=== PATIENT | female | born 2000 | race Caucasian/White ===

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

== ENCOUNTER 2022-05-26 14:28 | Emergency (ER) | payer MEDICAID, SELFPAY ==
[2022-05-26 14:49] VITALS: BP 138/95; PULSE 107; RESP 17; TEMP 36.9; O2SAT 99; BMI 24.2
--- NOTE | 2022-05-26 14:49 | HMH.EDUTC ---
[facility] [place] Impression: Exposure to COVID-19 virus, Viral syndrome Disposition: Home, Self-Care Condition on Discharge: Good Instructions: DI for COVID-19 (Suspected or Confirmed ), Preventing the Spread of Coronavirus Discharge Instructions Additional Instructions: Drink plenty of fluids. Take tylenol or ibuprofen for pain or fever. Take the medications as directed. Follow up with your regular doctor. GO TO THE ER FOR ANY WORSENING SYMPTOMS Quarantine until you know the results of your covid-19 test. Notify your school or workplace of your results and follow their instructions regarding return to work/school. Prescriptions: Ondansetron [Zofran 4mg ODT] 4 mg PO Q8HP PRN #12 tab PRN Reason: Nausea Transmission Status: Received by [email or web address] Benzonatate [Benzonatate 100mg cap] 100 mg PO TIDP PRN #30 cap PRN Reason: Cough [facility] Referrals: Anthony Meng [Primary Care Provider] - Forms: Work/School Release Time of Disposition: 15:09 Medical Decision Making - Medical Records Medical records reviewed: No: I reviewed the patient's medical records. - Reginald Inquiry Pt receiving controlled substance: No Vital Signs: 05/26/22 14:49 05/26/22 15:14 Temperature 98.5 F 98.5 F Temperature Source Oral Pulse Rate 107 H Pulse Rate [Left] 107 H Respiratory Rate 17 17 Blood Pressure 138/95 H Blood Pressure [Right Arm] 138/95 H Blood Pressure Mean [Right Arm] 109 02 Sat by Pulse Oximetry 99 - Lab Data Lab results reviewed: Yes: I reviewed the patient's lab results. [facility] [place] - General Stated complaint: covid exposure, chills, upset stomach Time Seen by Provider: 05/26/22 14:49 - History of Present Illness Provider Complaint: She states that she has had a had sinus congestion and a cough for the past 2 days. - Related Data Previous Rx's Medication Instructions Recorded Promethazine HCl [Phenergan 25mg 25 mg PO Q6HP PRN #10 tab 01/06/21 tab] Dicyclomine HCl [Bentyl 10mg 10 mg PO Q8HP PRN #30 cap 02/04/21 capsule] Ketorolac Tromethamine [Toradol 10 mg PO Q6H 5 Days #20 tab 02/04/21 10mg tablet] Ondansetron [Zofran 4mg ODT] 4 mg PO Q6HP PRN #30 tab.rapdis 02/04/21 Benzonatate [Benzonatate 100mg 100 mg PO TIDP PRN #30 cap 05/26/22 cap] Ondansetron [Zofran 4mg ODT] 4 mg PO Q8HP PRN #12 tab 05/26/22 Allergies Allergy/AdvReac Type Severity Reaction Status Date / Time No Known Allergies Allergy Verified 05/26/22 14:56 [facility] History - Hepatitis A Screen Attestation statement:: This patient has been screened for Hepatitis A risk factors. I have reviewed the patient's past medical history: Yes Medical History: Reports:: Anxiety Other Surgeries: Yes: No Previous Surgery Amputation: No Fractures: No - Social History Smoking Status: Never smoker Alcohol Intake: never Substance Use Type: denies use Occupational Status: other Housing: house Household Members: family - Psychiatric History Pschychiatric History:: Reports:: Anxiety Denies:: Suicide Attempt Family Hx:: Diabetes, Cancer ROS Obtained: Yes All systems reviewed & no additional complaints - Constitutional Constitutional: Reports as per HPI - Eyes Eyes: Denies blurry vision - ENT Ears, Nose, Mouth, and Throat: Reports as per HPI - Cardiovascular Cardiovascular: Denies chest pain - Respiratory Respiratory: Denies chest congestion, Reports cough Physical Exam - General General appearance: alert, in no apparent distress - Head Head exam: atraumatic, normocephalic, normal inspection - Eye Eye exam: Present: normal appearance, PERRL, EOMI - ENT ENT exam: Present: normal exam, normal oropharynx, mucous membranes moist, TM's normal bilaterally, normal external ear exam - Neck Neck exam: Present: normal inspection, full ROM, trachea midline. Absent: meningismus, lymphadenopa
[2022-05-26 15:14] VITALS: BP 138/95; PULSE 107; RESP 17; TEMP 36.9
== END 2022-05-26 15:16 | disposition home or self-care (01) ==
PROVIDERS: Emergency Provider Nurse Practitioner Family; PCP Family Medicine
DX: B34.9 Viral infection, unspecified (principal); Z20.822 Contact with and (suspected) exposure to COVID-19
CPT/HCPCS: 99212; C9803; G0463; U0003; U0005

== ENCOUNTER 2022-06-24 11:32 | Emergency (ER) | payer MEDICAID, SELFPAY ==
--- NOTE | 2022-06-24 12:14 | EXP.UTC ---
Discharge Plan Disposition Patient Disposition: Home, Self-Care Condition: Good Prescriptions Prescriptions: New ondansetron 4 mg Tablet,Disintegrating 4 mg PO Q8H PRN (Reason: Nausea) Qty: 20 0RF famotidine 20 mg tablet 20 mg PO BID Qty: 60 0RF No Action benzonatate 100 MG capsule 100 mg PO TIDP PRN (Reason: Cough) Qty: 30 0RF ondansetron 4 MG tablet,disintegrating 4 mg PO Q8HP PRN (Reason: Nausea) Qty: 12 0RF promethazine 25 MG tablet 25 mg PO Q6HP PRN (Reason: Nausea And Vomiting) Qty: 10 0RF ketorolac 10 MG tablet 10 mg PO Q6H 5 Days Qty: 20 0RF ondansetron 4 MG tablet,disintegrating 4 mg PO Q6HP PRN (Reason: Nausea) Qty: 30 0RF dicyclomine 10 MG capsule 10 mg PO Q8HP PRN (Reason: abdominal pain) Qty: 30 0RF Referrals Follow up/Referrals: Anthony Meng [Primary Care Provider] - See instructions Activity Restrictions/Add. Instructions Additional Instructions/Restrictions: Drink plenty of fluids. Take tylenol or ibuprofen for pain or fever. Take the medications as directed. Follow up with your regular doctor. GO TO THE ER FOR ANY WORSENING SYMPTOMS Quarantine until you know the results of your covid-19 test. Notify your school or workplace of your results and follow their instructions regarding return to work/school. Clinical Impressions Clinical Impression: Gastroenteritis, Viral syndrome Stand Alone Forms Stand Alone Forms: Work/School Release Instructions Patient Instructions: Viral Gastroenteritis, Coronavirus Disease 2019, Preventing the Spread of Coronavirus Discharge Instructions Discharge ED Provider: Tigre Owen [facility] General Stated complaint: stomach pain Time Seen by Provider: 06/24/22 12:14 History of Present Illness Provider Complaint: She states that for the past 1 days she has had n/v. She has abdominal discomfort in her epigastric area, but no actual pain. She denies diarrhea Related Data Previous Rx's Medication Instructions Recorded promethazine 25 mg tablet 25 mg PO Q6HP PRN Nausea And 01/06/21 Vomiting #10 tabs dicyclomine 10 mg capsule 10 mg PO Q8HP PRN abdominal pain 02/04/21 #30 caps ketorolac 10 mg tablet 10 mg PO Q6H 5 days #20 tabs 02/04/21 ondansetron 4 mg disintegrating 4 mg PO Q6HP PRN Nausea ##30 02/04/21 tablet benzonatate 100 mg capsule 100 mg PO TIDP PRN Cough #30 caps 05/26/22 ondansetron 4 mg disintegrating 4 mg PO Q8HP PRN Nausea #12 tabs 05/26/22 tablet famotidine 20 mg tablet 20 mg PO BID #60 tabs 06/24/22 ondansetron 4 mg disintegrating 4 mg PO Q8H PRN Nausea #20 tabs 06/24/22 tablet Allergies Allergy/AdvReac Type Severity Reaction Status Date / Time No Known Allergies Allergy Verified 06/24/22 12:38 PFSH PFS Social History Smoking Status: Never smoker alcohol intake: never substance use type: denies use current occupational status: other household members: family housing: house number of children: 0 ROS Obtained: Yes All systems reviewed & no additional complaints except as documented Constitutional Constitutional: Denies chills, Denies fever(s) and Reports poor appetite ENT Ears, Nose, Mouth, and Throat: Denies dizziness and Denies sore throat Cardiovascular Cardiovascular: Denies dyspnea Respiratory Respiratory: Denies chest congestion, Denies cough and Denies dyspnea Genitourinary Female Genitourinary: Denies difficulty voiding, Denies dysuria, Denies hematuria, Denies urinary frequency, Denies urinary incontinence, Denies urinary hesitancy and Denies urinary urgency Musculoskeletal Musculoskeletal: Denies arthralgias Integumentary/Breasts Skin/Breast: Denies rash Neurologic Neurologic: Denies dizziness Physical Exam General General appearance: alert and in no apparent distress Head Head exam: atraumatic, normocephalic and normal inspection Eye Eye exam: Present normal appearance,
[2022-06-24 12:36] VITALS: BP 143/82; PULSE 102; RESP 16; TEMP 37.1; O2SAT 99; BMI 21.4
[2022-06-24 12:53] LABS: UTC Strep Screen (Rapid) Negative (Negative)
[2022-06-24 13:10] VITALS: BP 143/82; PULSE 102; RESP 16; TEMP 37.1
== END 2022-06-24 13:11 | disposition home or self-care (01) ==
PROVIDERS: Emergency Provider Nurse Practitioner Family; PCP Family Medicine
DX: R10.13 Epigastric pain (principal); R11.2 Nausea with vomiting, unspecified; R05.9 Cough, unspecified; Z79.899 Other long term (current) drug therapy; Z20.822 Contact with and (suspected) exposure to COVID-19
CPT/HCPCS: 87880; 99213; C9803; G0463; U0003; U0005

== ENCOUNTER 2022-08-29 20:55 | Emergency (ER) | payer MEDICAID, SELFPAY ==
[2022-08-29 20:57] VITALS: BP 122/71; PULSE 91; RESP 18; TEMP 36.8; O2SAT 100; BMI 23.2
--- NOTE | 2022-08-29 21:41 | PC.NURSE ---
Pt provided with warm blanket
[2022-08-29 22:00] VITALS: BP 122/71; PULSE 63; O2SAT 100
--- NOTE | 2022-08-29 22:28 | PC.NURSE ---
Dr. Johnson at
[2022-08-29 22:31] VITALS: BP 124/82; PULSE 61; O2SAT 100
[2022-08-29 22:31] LABS: Microscopic, Urine URINE MICROSCOPIC (MICROSCOPIC)
--- NOTE | 2022-08-29 22:32 | HMH.EDNVD ---
Discharge Plan Disposition Patient Disposition: Home, Self-Care Chief Complaint: Nausea/Vomiting/Diarrhea Prescriptions Prescriptions: No Action benzonatate 100 MG capsule 100 mg PO TIDP PRN (Reason: Cough) Qty: 30 0RF ondansetron 4 MG tablet,disintegrating 4 mg PO Q8HP PRN (Reason: Nausea) Qty: 12 0RF promethazine 25 MG tablet 25 mg PO Q6HP PRN (Reason: Nausea And Vomiting) Qty: 10 0RF ketorolac 10 MG tablet 10 mg PO Q6H 5 Days Qty: 20 0RF ondansetron 4 MG tablet,disintegrating 4 mg PO Q6HP PRN (Reason: Nausea) Qty: 30 0RF dicyclomine 10 MG capsule 10 mg PO Q8HP PRN (Reason: abdominal pain) Qty: 30 0RF ondansetron 4 mg Tablet,Disintegrating 4 mg PO Q8H PRN (Reason: Nausea) Qty: 20 0RF famotidine 20 mg tablet 20 mg PO BID Qty: 60 0RF Referrals Follow up/Referrals: Anthony Meng [Primary Care Provider] - See instructions Clinical Impressions Clinical Impression: Post-operative nausea and vomiting Instructions Patient Instructions: DI for Nausea -- Adult Discharge ED Provider: Gerhard Johnson Nausea/Vomiting/Diarrhea HPI General Chief complaint: Nausea/Vomiting/Diarrhea Stated complaint: has Gallbladder surgery at [facility] now with pain Time Seen by Provider: 08/29/22 22:32 Mode of Arrival: Ambulatory Source of Information: Patient and Medical Record Limitations: No Limitations Description of Symptoms (Recalled from ER Triage Doc. by RN): pt states had gallbladder surgery today in [place]. today about 1pm pt began vomitting and unable to keep anything down and having upper abd pain. History of Present Illness HPI Narrative: had gb surg today and now with vomiting and pain - no fever MD complaint: nausea, vomiting and abdominal pain Onset (ago): hour(s) Associated Abdominal Pain: Yes Location of pain: diffuse Severity: moderate Consistency: intermittent Context: recent surgery/procedure Associated symptoms: denies other symptoms Related Data Previous Rx's Medication Instructions Recorded promethazine 25 mg tablet 25 mg PO Q6HP PRN Nausea And 01/06/21 Vomiting #10 tabs dicyclomine 10 mg capsule 10 mg PO Q8HP PRN abdominal pain 02/04/21 #30 caps ketorolac 10 mg tablet 10 mg PO Q6H 5 days #20 tabs 02/04/21 ondansetron 4 mg disintegrating 4 mg PO Q6HP PRN Nausea ##30 02/04/21 tablet benzonatate 100 mg capsule 100 mg PO TIDP PRN Cough #30 caps 05/26/22 ondansetron 4 mg disintegrating 4 mg PO Q8HP PRN Nausea #12 tabs 05/26/22 tablet famotidine 20 mg tablet 20 mg PO BID #60 tabs 06/24/22 ondansetron 4 mg disintegrating 4 mg PO Q8H PRN Nausea #20 tabs 06/24/22 tablet Allergies Allergy/AdvReac Type Severity Reaction Status Date / Time No Known Allergies Allergy Verified 06/24/22 12:38 PFSH [facility] Social History (Updated 06/24/22 @ 21:07 by Tigre Owen APRN) Smoking Status: Current every day smoker alcohol intake: never substance use type: denies use current occupational status: other Travel in the last 8 weeks: None household members: family housing: house number of children: 0 ROS Obtained: Yes All systems reviewed & no additional complaints except as documented Physical Exam General General appearance: alert Head Head exam: normocephalic Eye Eye exam: Present PERRL and EOMI; Absent scleral icterus ENT ENT exam: Present mucous membranes dry Neck Neck exam: Present trachea midline Respiratory Respiratory exam: Present normal lung sounds bilaterally Cardiovascular Cardiovascular exam: Present regular rate; Absent systolic murmur Abdominal Exam Abdominal exam: Present soft, tenderness and other (surg sites clear ) Abdominal tenderness: Present diffuse and moderate Extremities Exam Extremities exam: Present full ROM Neurological Exam Neurological exam: Present alert, oriented X3 and CN II-XII intact Psychiatric Psychiatric exam: Present normal affect Skin Skin exam: Absent rash Medical Decision Making Medical
[2022-08-29 22:39] LABS: Appearance,Urine CLOUDY (Clear); Bilirubin,Urine Negative (Negative); Blood, Urine Negative (Negative); Color,Urine YELLOW (Yellow); Glucose,Urine (UA) Negative (Negative); Ketones,Urine 3+ (Negative); Leukocyte Esterase,Urine Negative (Negative); Nitrate,Urine Negative (Negative); PH,Urine 6.5 (5.0-8.5); Protein,Urine TRACE (Negative); Specific Gravity, Urine 1.025 (1.005-1.030); Urobilinogen,Urine 0.2 EU/dl (0.2)
[2022-08-29 22:42] LABS: Urine Pregnancy, HCG Qual. Negative (Negative)
[2022-08-29 23:01] VITALS: BP 110/54; PULSE 57; O2SAT 100
[2022-08-29 23:02] LABS: Basophils # 0.1 K/mm3 (0-0.2); Basophils % 0.6 % (0.1-2.0); Eosinophils % 0.1 % (0.1-12.0); Hematocrit 44.7 % (37.0-47.0); Hemoglobin 14.5 g/dL (12.2-16.2); Lymphocytes # 0.4 K/mm3 (0.7-4.5); Lymphocytes % 3.9 % (10-50); Mean Corpuscular HGB Conc 32.4 g/dL (31.8-35.4); Mean Corpuscular Hemoglobin 29.9 pg (27.0-31.2); Mean Corpuscular Volume 92.3 fl (81-99); Mean Platelet Volume 7.4 fl (7.4-10.4); Monocytes # 0.1 K/mm3 (0.1-1.0); Monocytes % 1.3 % (1.7-9.3); Neutrophils # 8.7 K/mm3 (1.8-7.8); Neutrophils % 94.3 % (37.0-80.0); Platelet Count 392 K/mm3 (142-424); Red Blood Count 4.84 M/mm3 (4.20-5.40); Red Cell Distribution Width 12.9 % (11.5-17.5); White Blood Count 9.2 K/mm3 (4.5-13.0)
[2022-08-29 23:05] LABS: MANUAL DIFFERENTIAL MANUAL DIFFERENTIAL (MANUAL DIFF)
[2022-08-29 23:08] LABS: Chloride 99 mmol/L (98-107); Potassium 4.2 mmoL/L (3.5-5.1); Sodium 139 mmol/L (136-145)
[2022-08-29 23:11] LABS: Alanine Aminotransferase 28 U/L (12-78); Albumin Level 4.8 g/dl (3.5-5.0); Albumin/Globulin Ratio 1.5 (1.1-1.8); Alkaline Phosphatase 74 U/L (38-126); Amylase 53 U/L (30-110); Anion Gap 21.2 mEq/L (5-15); Aspartate Amino Transferase 57 U/L (14-36); Bilirubin,Total 0.8 mg/dl (0.2-1.3); Blood Urea Nitrogen 12 mg/dl (7-17); Carbon Dioxide 23 mmol/L (22.0-30.0); Creatinine Clearance Estimated 148 mL/min (50-200); Estimated Glomerular Filt Rate 157 ml/min (>60); GFR (African American) 190 ML/MIN (>60); Globulin 3.2 g/dL (1.3-3.2); Glucose 138 mg/dl (74-100); Lipase 25 U/L (23-300)
[2022-08-29 23:14] LABS: Amorphous Sediment,Urine 2+ /lpf; Bacteria,Urine Trace /lpf; WBC,Urine Occasional #/hpf (0-3)
[2022-08-29 23:31] VITALS: BP 112/67; PULSE 64; O2SAT 100
[2022-08-29 23:38] LABS: Lymphocytes % 6 % (10-50); Neutrophils % 94 % (42-76); Total Cells Counted 100
[2022-08-29 23:39] LABS: Platelet Estimate Normal; RBC Morphology Normal
[2022-08-30 00:36] VITALS: BP 115/75; PULSE 61; RESP 16; TEMP 36.8; O2SAT 100
== END 2022-08-30 00:38 | disposition home or self-care (01) ==
PROVIDERS: Emergency Provider Emergency Medicine; PCP Family Medicine
DX: R10.9 Unspecified abdominal pain (principal); R11.2 Nausea with vomiting, unspecified; R19.7 Diarrhea, unspecified; R05.9 Cough, unspecified; F17.210 Nicotine dependence, cigarettes, uncomplicated; Z79.899 Other long term (current) drug therapy
CPT/HCPCS: 80053; 81001; 81025; 82150; 83690; 85007; 85025; 96361; 96374; 96375; 99284; J2405

== ENCOUNTER 2023-03-04 14:48 | Observation (INO) | payer MEDICAID, SELFPAY ==
[2023-03-04] VITALS (9 sets, daily range): BP systolic 113–137; BP diastolic 64–79; PULSE 60–109; RESP 16–20; TEMP 36.4–36.6; O2SAT 94–100; BMI 24.2; BMI 24.8
[2023-03-04 14:58] LABS: Microscopic, Urine URINE MICROSCOPIC (MICROSCOPIC)
[2023-03-04 15:02] LABS: Appearance,Urine SL CLOUDY (Clear); Blood, Urine 3+ (Negative); Color,Urine YELLOW (Yellow); Glucose,Urine (UA) Negative (Negative); Ketones,Urine 2+ (Negative); Leukocyte Esterase,Urine Negative (Negative); Nitrate,Urine Negative (Negative); Protein,Urine 1+ (Negative); Specific Gravity, Urine >= 1.030 (1.005-1.030); Urobilinogen,Urine 0.2 EU/dl (0.2)
[2023-03-04 15:04] LABS: Bilirubin,Urine 1+ (Negative)
--- NOTE | 2023-03-04 15:13 | PC.NURSE ---
DR LAND AT BEDSIDE
[2023-03-04 15:39] LABS: WBC,Urine Occasional #/hpf (0-3)
--- NOTE | 2023-03-04 15:40 | HMH.EDGENADL ---
Discharge Plan Disposition Patient Disposition: Admitted As Inpatient Chief Complaint: Nausea/Vomiting/Diarrhea Prescriptions Prescriptions: No Action No Known Home Medications Referrals Follow up/Referrals: Anthony Meng MD [Primary Care Provider] - See instructions Clinical Impressions Clinical Impression: Abdominal pain, Vomiting Instructions Patient Instructions: DI for Diarrhea and Traveler's Diarrhea -- Adult, DI for Diarrhea and Traveler's Diarrhea -- Child, DI for Nausea -- Adult, DI for Nausea -- Child Discharge ED Provider: Rudy Crane General Adult HPI General Chief complaint: Nausea/Vomiting/Diarrhea Stated complaint: abd pain, vomiting Time Seen by Provider: 03/04/23 14:50 Mode of Arrival: Ambulatory Limitations: No Limitations Description of Symptoms (Recalled from ER Triage Doc. by RN): PT C/O SEVERE PERIOD CRAMPS CAUSING N/V FOR ABOUT 2 HOURS History of Present Illness HPI narrative: This is a 22-year-old female who is otherwise healthy presenting with abdominal pain and vomiting. Patient states that she started her period today, 03/04 and its associated with cramping, abdominal pain, bleeding. She is saturating about 1 pad per hour. Cramping is so bad it is causing her to vomit. Patient has not had any objective fevers measured, but states that she has been feeling sweaty on and off and as if she is burning up. Abdominal pain is 10 out of 10 at its worst, radiates through to her back, not associated with abnormal vaginal discharge, dysuria, hematuria, frequency, urgency, or any other concerns. Vomiting is nonbloody, nonbilious. Denies constipation or diarrhea, or any other symptoms. Related Data Home Medications Medication Instructions Recorded Confirmed No Known Home Medications 03/04/23 03/04/23 Allergies Allergy/AdvReac Type Severity Reaction Status Date / Time No Known Allergies Allergy Verified 06/24/22 12:38 [facility] Disclaimer: The information contained in this section may have been updated after the patient was seen, as this information can be updated by other users. Social History (Updated 06/24/22 @ 21:07 by Tigre Owen APRN) Smoking Status: Never smoker alcohol intake: never substance use type: denies use current occupational status: other Travel in the last 8 weeks: None household members: family housing: house number of children: 0 ROS Obtained: Yes All systems reviewed & no additional complaints except as documented Physical Exam General General appearance: alert and in distress (Retching) Head Head exam: atraumatic, normocephalic and normal inspection Eye Eye exam: Present normal appearance, PERRL and EOMI ENT ENT exam: Present normal exam, normal oropharynx, mucous membranes moist, TM's normal bilaterally and normal external ear exam Neck Neck exam: Present normal inspection, full ROM and trachea midline; Absent meningismus or lymphadenopathy Chest Chest inspection: Present normal inspection and symmetric chest wall rise; Absent tenderness Respiratory Respiratory exam: Present normal lung sounds bilaterally; Absent respiratory distress Cardiovascular Cardiovascular exam: Present regular rate and normal rhythm; Absent JVD Abdominal Exam Abdominal exam: Present soft, tenderness and normal bowel sounds; Absent distention, guarding, rebound or rigidity Abdominal tenderness: Present epigastrium Extremities Exam Extremities exam: Present normal inspection, full ROM and normal capillary refill; Absent calf tenderness Back Exam Back exam: Present normal inspection; Absent tenderness Neurological Exam Neurological exam: Present alert and oriented X3 Psychiatric Psychiatric exam: Present normal affect and normal mood Skin Skin exam: Present warm, dry, intact and normal color Lymphatic Lymphatic Findings: no adenopathy Medical Decision Making Medical Records Medical records reviewed: Yes I reviewed the patient's medical re
[2023-03-04 15:52] LABS: Urine Pregnancy, HCG Qual. Negative (Negative)
--- NOTE | 2023-03-04 16:24 | PC.NURSE ---
gave pt a warm blanket, no complaints at this time, boyfriend at bs
[2023-03-04 16:30] LABS: Basophils # 0.1 K/mm3 (0-0.2); Basophils % 0.3 % (0.1-2.0); Eosinophils % 0.2 % (0.1-12.0); Hematocrit 46.1 % (37.0-47.0); Hemoglobin 15.1 g/dL (12.2-16.2); Lymphocytes % 5.7 % (10-50); Mean Corpuscular HGB Conc 32.8 g/dL (31.8-35.4); Mean Corpuscular Volume 91.5 fl (81-99); Mean Platelet Volume 7.8 fl (7.4-10.4); Monocytes # 0.7 K/mm3 (0.1-1.0); Monocytes % 3.6 % (1.7-9.3); Neutrophils # 16.5 K/mm3 (1.8-7.8); Neutrophils % 90.2 % (37.0-80.0); Platelet Count 315 K/mm3 (142-424); Red Blood Count 5.04 M/mm3 (4.20-5.40); Red Cell Distribution Width 13.2 % (11.5-17.5); White Blood Count 18.2 K/mm3 (4.5-13.0)
[2023-03-04 16:33] LABS: Chloride 101 mmol/L (98-107); Potassium 4.1 mmoL/L (3.5-5.1); Sodium 138 mmol/L (136-145)
[2023-03-04 16:34] LABS: MANUAL DIFFERENTIAL MANUAL DIFFERENTIAL (MANUAL DIFF)
[2023-03-04 16:35] LABS: Alanine Aminotransferase 32 U/L (12-78); Aspartate Amino Transferase 37 U/L (14-36); Blood Urea Nitrogen 12 mg/dl (7-17); Creatinine Clearance Estimated 129 mL/min (50-200); Estimated Glomerular Filt Rate 127 ml/min (>60); GFR (African American) 154 ML/MIN (>60)
--- NOTE | 2023-03-04 16:35 | CT_ITS ---
PROCEDURE INFORMATION: Exam: CT Abdomen And Pelvis With Contrast Exam date and time: 03/04/2023 4:55 PM Age: 22 years old Clinical indication: Nausea and vomiting; Abdominal pain; Generalized; Additional info: Abd pain, vomiting TECHNIQUE: Imaging protocol: Computed tomography of the abdomen and pelvis with contrast. Radiation optimization: All CT scans at this facility use at least one of these dose optimization techniques: automated exposure control; mA and/or kV adjustment per patient size (includes targeted exams where dose is matched to clinical indication); or iterative reconstruction. Contrast material: ISOVUE; Contrast volume: 75 ml; Contrast route: IV; REPORTING DATA: Count of CT and Cardiac NM exams in prior 12 months: This patient has received 0 known CTs and 0 known cardiac nuclear medicine studies in the 12 months prior to the current study. COMPARISON: CT ABDOMEN PELVIS W CON 02/04/2021 11:20 AM FINDINGS: Lungs: Lung bases are clear. Liver: Normal. No mass. Gallbladder and bile ducts: Gallbladder is contracted but otherwise unremarkable. No evident bile duct dilatation. Pancreas: Normal. No ductal dilation. Spleen: Normal. No splenomegaly. Adrenal glands: Normal. No mass. Kidneys and ureters: Normal. No hydronephrosis. Stomach and bowel: Unremarkable. No obstruction. No mucosal thickening. Appendix: Appendix not visible, but no secondary signs of appendicitis identified. Intraperitoneal space: Small amount of nonspecific fluid dense free fluid noted in the posterior pelvis. 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 Potential abnormal fluid distention of the uterine cavities bilaterally measuring up to 16 mm on the right and 17 mm on left noted. Vasculature: Unremarkable. No abdominal aortic aneurysm. Lymph nodes: Unremarkable. No enlarged lymph nodes. Urinary bladder: Unremarkable as visualized. Reproductive: See Intraperitoneal space finding. Bones/joints: Unremarkable. No acute fracture. Soft tissues: Pelvic viscera otherwise unremarkable. IMPRESSION: 1. Uterine didelphys redemonstrated. Possible abnormal fluid distention of the uterine cavities bilaterally incompletely assessed with this exam. Advise further assessment with ultrasound of the pelvis including endovaginal and transpelvic ultrasound. 2. Small amount of nonspecific pelvic free fluid. 3. Additional nonemergent findings as above.
[2023-03-04 16:36] LABS: Albumin Level 4.7 g/dl (3.5-5.0); Albumin/Globulin Ratio 1.4 (1.1-1.8); Alkaline Phosphatase 80 U/L (38-126); Anion Gap 21.1 mEq/L (5-15); Bilirubin,Total 1.1 mg/dl (0.2-1.3); Calcium 9.6 mg/dl (8.4-10.2); Carbon Dioxide 20 mmol/L (22.0-30.0); Globulin 3.3 g/dL (1.3-3.2); Glucose 140 mg/dl (74-100); Lipase 99 U/L (23-300)
--- NOTE | 2023-03-04 16:41 | PC.NURSE ---
RADIOLOGY NOTIFIED OF CT SCAN
--- NOTE | 2023-03-04 16:43 | PC.NURSE ---
PT UPDATED AT THIS TIME
--- NOTE | 2023-03-04 16:48 | PC.NURSE ---
PT TO CT
--- NOTE | 2023-03-04 16:50 | PC.NURSE ---
pt to xray
--- NOTE | 2023-03-04 17:01 | PC.NURSE ---
PT RETURNED FROM CT, AMBULATED TO BR WITHOUT ASSISTANCE
--- NOTE | 2023-03-04 17:26 | PC.NURSE ---
PT CONTINUES TO REPORT NAUSEA
--- NOTE | 2023-03-04 17:34 | PC.NURSE ---
DR LAND AT BEDSIDE TO REEVALUATE PT
[2023-03-04 17:39] LABS: Lymphocytes % 8 % (10-50); Monocytes % 3 % (2-9); Neutrophils % 89 % (42-76); Platelet Estimate Normal; RBC Morphology Normal; Total Cells Counted 100
[2023-03-04 17:58] LABS: Coronavirus 19, PCR Not Detected (NotDetected); Influenza A, PCR Not Detected (NotDetected); Influenza B, PCR Not Detected (NotDetected)
--- NOTE | 2023-03-04 18:12 | PC.NURSE ---
PT REPORTS PAIN GONE AT THIS TIME
--- NOTE | 2023-03-04 18:19 | PC.NURSE ---
pt is resting in bed, no complaints at this time, boyfriend at bs
--- NOTE | 2023-03-04 18:41 | PC.NURSE ---
DR. LAND SPEAKING WITH DR DE PAZ
--- NOTE | 2023-03-04 18:51 | PC.NURSE ---
covid swab sent to lab
--- NOTE | 2023-03-04 18:55 | PC.NURSE ---
REGISTRATION REPRESENTATIVE NOTIFIED OF ADMISSION
--- NOTE | 2023-03-04 19:47 | PC.NURSE ---
Kelly EPSTEIN was notified that antibodies not given
--- NOTE | 2023-03-04 19:59 | PC.NURSE ---
Pt. arrived to [facility] by wheelchair at this time.
--- NOTE | 2023-03-04 20:05 | EXP.HP ---
History of Present Illness *Admission Date: 03/04/23 *Reason for visit:: abdominal pain, nausea/vomiting *History of present illness: Ms. Mayo is a 22 year old female who presented to the ER with complaints of abdominal pain with intractable nausea and vomiting. Work-up in the ER, CBC demonstrated leukocytosis. Chemistry was unremarkable, except for high anion gap. 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 Patient was treated with IVF bolus, along with zofran and phenergan. Patient also received dilaudid for abdominal pain. Despite antiemetics and pain medication, she continued to have ongoing nausea and abdominal pain, along with inability to keep anything down. ER physician discussed case with Dr. Rosario, who agreed inpatient admission for continued IVF resuscitation and antiemetics. Due to nonspecific free fluid in the pelvis, patient was started on Zosyn 4.5 gm IV q6hr. [facility] Disclaimer: The information contained in this section may have been updated after the patient was seen, as this information can be updated by other users. Medical History Uterus didelphys Social History Smoking Status: Never smoker alcohol intake: never substance use type: denies use current occupational status: other Travel in the last 8 weeks: None household members: family housing: house number of children: 0 Review of Systems Review of Systems Review of systems:: pertinent systems reviewed and negative unless documented below *Gastrointestinal Gastrointestinal: Reports abdominal pain, Reports nausea and Reports vomiting *Genitourinary Genitourinary: Reports dysmenorrhea and Reports menorrhagia Psychiatric Comments: Hx anxiety/depression. Denies thoughts of hurting/killing herself. Meds Home Medications and Allergies Home Medications Medication Instructions Recorded Confirmed Type No Known Home Medications 03/04/23 03/04/23 History New Prescriptions to Start Prescriptions: Allergies Allergy/AdvReac Type Severity Reaction Status Date / Time No Known Allergies Allergy Verified 06/24/22 12:38 Exam Data for Last 24 hours Vital signs and Labs for Last 24 Hours: Temp Pulse Resp BP Pulse Ox 97.9 F 61 16 124/74 100 03/04/23 19:45 03/04/23 19:45 03/04/23 19:45 03/04/23 19:45 03/04/23 18:30 Laboratory Results - last 24 hr 03/04/23 14:53: Urine Color Yellow, Urine Appearance Sl cloudy, Urine pH 6.0, Ur Specific [place] >= 1.030, Urine Protein 1+, Urine Glucose (UA) Negative, Urine Ketones 2+, Urine Blood 3+, Urine Nitrate Negative, Urine Bilirubin 1+ A, Urine Urobilinogen 0.2, Ur Leukocyte Esterase Negative, Urine RBC 5-10, Urine WBC Occasional, Ur Squamous Epith Cells 3-5, Urine Bacteria None 03/04/23 14:53: Urine HCG, Qual Negative 03/04/23 15:35: WBC 18.2 H, RBC 5.04, Hgb 15.1, Hct 46.1, MCV 91.5, MCH 30.0, MCHC 32.8, RDW 13.2, Plt Count 315, MPV 7.8, Neut % (Auto) 90.2 H, Lymph % (Auto) 5.7 L, [place] % (Auto) 3.6, Eos % (Auto) 0.2, Baso % (Auto) 0.3, Neut # (Auto) 16.5 H, Lymph # (Auto) 1.0, [place] # (Auto) 0.7, Eos # (Auto) 0.0, Baso # (Auto) 0.1, Total Counted 100, Neutrophils % (Manual) 89 H, Lymphocytes % (Manual) 8 L, Monocytes % (Manual) 3, Platelet Estimate Normal, RBC Morphology Normal 03/04/23 15:35: Sodium 138, Potassium 4.1, Chloride 101, Carbon Dioxide 20 L, Anion Gap 21.1 H, BUN 12, Creatinine 0.60, Estimated Creat Clear 129, Estimated GFR 127, Est GFR ( Amer) 154, Glucose 140 H, Calcium 9.6, Total Bilirubin 1.1, AST 37 H, ALT 32, Alkaline Phosphatase 80, Total Protein 8.0, Albumin 4.7, Globulin 3.3 H, Albumin/Globulin Ratio 1.4, Lipase 99 03/04/23 17:45: SARS-CoV-2 (PCR) Not detected, Influenza A Untype (PCR) Not detected, Influenza Type B (PCR)
[2023-03-05 04:00] VITALS: BP 117/54; PULSE 77; RESP 18; TEMP 37.1; O2SAT 99; BMI 24.8
--- NOTE | 2023-03-05 05:07 | PC.NURSE ---
Pt has c/o nausea 3x t/o shift and did not seem to get relief until receiving 25mg IV Phenergan. Pt stated 10mg Compazine somewhat helped and 4 mg Zofran did not help at all. Pt friend at bedside, call light within reach.
[2023-03-05 06:14] LABS: Basophils % 0.1 % (0.1-2.0); Eosinophils # 0.1 K/mm3 (0.0-0.4); Eosinophils % 0.6 % (0.1-12.0); Hematocrit 45.7 % (37.0-47.0); Hemoglobin 14.8 g/dL (12.2-16.2); Lymphocytes # 1.1 K/mm3 (0.7-4.5); Lymphocytes % 6.4 % (10-50); Mean Corpuscular HGB Conc 32.3 g/dL (31.8-35.4); Mean Corpuscular Hemoglobin 29.6 pg (27.0-31.2); Mean Corpuscular Volume 91.4 fl (81-99); Mean Platelet Volume 7.2 fl (7.4-10.4); Monocytes # 0.7 K/mm3 (0.1-1.0); Monocytes % 4.3 % (1.7-9.3); Neutrophils # 15.1 K/mm3 (1.8-7.8); Neutrophils % 88.6 % (37.0-80.0); Platelet Count 328 K/mm3 (142-424); Red Cell Distribution Width 13.1 % (11.5-17.5)
[2023-03-05 06:17] LABS: Alanine Aminotransferase 22 U/L (12-78); Albumin Level 4.6 g/dl (3.5-5.0); Albumin/Globulin Ratio 1.4 (1.1-1.8); Alkaline Phosphatase 74 U/L (38-126); Anion Gap 18.6 mEq/L (5-15); Aspartate Amino Transferase 30 U/L (14-36); Bilirubin,Total 1.4 mg/dl (0.2-1.3); Blood Urea Nitrogen 8 mg/dl (7-17); Calcium 9.1 mg/dl (8.4-10.2); Carbon Dioxide 21 mmol/L (22.0-30.0); Chloride 100 mmol/L (98-107); Creatinine Clearance Estimated 132 mL/min (50-200); Estimated Glomerular Filt Rate 127 ml/min (>60); GFR (African American) 154 ML/MIN (>60); Globulin 3.2 g/dL (1.3-3.2); Glucose 134 mg/dl (74-100); Magnesium 1.6 mg/dl (1.6-2.3); Potassium 3.6 mmoL/L (3.5-5.1); Sodium 136 mmol/L (136-145); Total Protein,Serum 7.8 g/dl (6.3-8.2)
[2023-03-05 06:36] LABS: MANUAL DIFFERENTIAL MANUAL DIFFERENTIAL (MANUAL DIFF)
[2023-03-05 07:05] LABS: Lymphocytes % 4 % (10-50); Monocytes % 1 % (2-9); Neutrophils % 95 % (42-76); Platelet Estimate Normal; RBC Morphology Normal; Total Cells Counted 100
[2023-03-05 07:19] VITALS: BP 116/68; PULSE 62; RESP 18; TEMP 36.8; O2SAT 97
--- NOTE | 2023-03-05 08:48 | US_ITS ---
FINAL REPORT CLINICAL HISTORY: pelvic pain, uterine didelphys FINDINGS: PELVIC ULTRASOUND Transvaginal pelvic exam: Uterine didelphys is noted. Both limbs of the uterus show normal size and morphology. The in the medial stripes measure 3 and 4 mm respectively which is normal. The right ovary and left ovary are unremarkable. There is a trace amount of free fluid which is considered physiologic. IMPRESSION: Uterine didelphys, otherwise unremarkable exam. Reviewed, Interpreted and Dictated by Escobar Mark MD Transcribed by Chika Rueda Authenticated and . [facility]
--- NOTE | 2023-03-05 10:39 | EXP.PN ---
Subjective *Date: 03/05/23 *Time: 10:39 Interval history: Date of service March 05, 2023 The patient reports no further emesis and reports improved nausea. She describes a chronic and ongoing history of routine marijuana use. She denies any associated diarrhea or crescendo abdominal pain. Her laboratory studies identify normal electrolytes and creatinine. Her CBC identifies a mild leukocytosis with a stable hemoglobin. Exam Data for Last 24 hours Vital signs and Labs for Last 24 Hours: Temp Pulse Resp BP Pulse Ox 98.2 F 62 18 116/68 97 03/05/23 07:19 03/05/23 07:19 03/05/23 07:19 03/05/23 07:19 03/05/23 07:19 Laboratory Results - last 24 hr 03/04/23 14:53: Urine Color Yellow, Urine Appearance Sl cloudy, Urine pH 6.0, Ur Specific [place] >= 1.030, Urine Protein 1+, Urine Glucose (UA) Negative, Urine Ketones 2+, Urine Blood 3+, Urine Nitrate Negative, Urine Bilirubin 1+ A, Urine Urobilinogen 0.2, Ur Leukocyte Esterase Negative, Urine RBC 5-10, Urine WBC Occasional, Ur Squamous Epith Cells 3-5, Urine Bacteria None 03/04/23 14:53: Urine HCG, Qual Negative 03/04/23 15:35: WBC 18.2 H, RBC 5.04, Hgb 15.1, Hct 46.1, MCV 91.5, MCH 30.0, MCHC 32.8, RDW 13.2, Plt Count 315, MPV 7.8, Neut % (Auto) 90.2 H, Lymph % (Auto) 5.7 L, [place] % (Auto) 3.6, Eos % (Auto) 0.2, Baso % (Auto) 0.3, Neut # (Auto) 16.5 H, Lymph # (Auto) 1.0, [place] # (Auto) 0.7, Eos # (Auto) 0.0, Baso # (Auto) 0.1, Total Counted 100, Neutrophils % (Manual) 89 H, Lymphocytes % (Manual) 8 L, Monocytes % (Manual) 3, Platelet Estimate Normal, RBC Morphology Normal 03/04/23 15:35: Sodium 138, Potassium 4.1, Chloride 101, Carbon Dioxide 20 L, Anion Gap 21.1 H, BUN 12, Creatinine 0.60, Estimated Creat Clear 129, Estimated GFR 127, Est GFR ( Amer) 154, Glucose 140 H, Calcium 9.6, Total Bilirubin 1.1, AST 37 H, ALT 32, Alkaline Phosphatase 80, Total Protein 8.0, Albumin 4.7, Globulin 3.3 H, Albumin/Globulin Ratio 1.4, Lipase 99 03/04/23 17:45: SARS-CoV-2 (PCR) Not detected, Influenza A Untype (PCR) Not detected, Influenza Type B (PCR) Not detected 03/05/23 05:55: WBC 17.0 H, RBC 5.00, Hgb 14.8, Hct 45.7, MCV 91.4, MCH 29.6, MCHC 32.3, RDW 13.1, Plt Count 328, MPV 7.2 L, Neut % (Auto) 88.6 H, Lymph % (Auto) 6.4 L, [place] % (Auto) 4.3, Eos % (Auto) 0.6, Baso % (Auto) 0.1, Neut # (Auto) 15.1 H, Lymph # (Auto) 1.1, [place] # (Auto) 0.7, Eos # (Auto) 0.1, Baso # (Auto) 0.0, Total Counted 100, Neutrophils % (Manual) 95 H, Lymphocytes % (Manual) 4 L, Monocytes % (Manual) 1 L, Platelet Estimate Normal, RBC Morphology Normal 03/05/23 05:55: Sodium 136, Potassium 3.6, Chloride 100, Carbon Dioxide 21 L, Anion Gap 18.6 H, BUN 8 D, Creatinine 0.60, Estimated Creat Clear 132, Estimated GFR 127, Est GFR ( Amer) 154, Glucose 134 H, Calcium 9.1, Magnesium 1.6, Total Bilirubin 1.4 H, AST 30, ALT 22 D, Alkaline Phosphatase 74, Total Protein 7.8, Albumin 4.6, Globulin 3.2, Albumin/Globulin Ratio 1.4 I & O for Last 24 hours: Intake & Output 03/02/23 03/03/23 03/04/23 03/05/23 23:59 23:59 23:59 23:59 Intake Total 240 / 240 Output Total 0 / 0 0 / 0 Balance 0 / 0 240 / 240 Weight 55.934 kg 55.934 kg Constitutional Constitutional: no acute distress and cooperative *Routine HEENT Exam Head: Present normocephalic Eye: Present EOMI and PERRL ENT: Present mucous membranes moist *Routine Respiratory Exam Respiratory: Present CTA bilaterally and normal respiratory effort *Routine Cardiovascular Exam Cardiovascular: Present RRR *Routine Abdominal Exam Abdominal: Present soft and normoactive bowel sounds; Absent tenderness *Routine Extremities Exam Extremities: Present full ROM, pulses intact and normal capillary refill; Absent cyanosis, clubbing or edema *Routine Skin Exam Skin: Present warm; Absent petechiae or rash *Routine Neurological Exam Neurological: Present alert, oriented X3, moving all extremities, hearing grossly intact and normal speech; Absent sensory deficit or motor deficit Rou
--- NOTE | 2023-03-05 13:53 | EXP.GYN.CONS ---
History of Present Illness *Admission Date: 03/04/23 *Reason for visit:: Nausea, vomiting, pelvic pain *History of present illness: Ms. Mayo is a 22 year old female who presented to the ER with complaints of abdominal pain with intractable nausea and vomiting. Work-up in the ER, CBC demonstrated leukocytosis. Chemistry was unremarkable, except for high anion gap. 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 Patient was treated with IVF bolus, along with zofran and phenergan. Patient also received dilaudid for abdominal pain. Despite antiemetics and pain medication, she continued to have ongoing nausea and abdominal pain, along with inability to keep anything down. ER physician discussed case with Dr. Rosario, who agreed inpatient admission for continued IVF resuscitation and antiemetics. Due to nonspecific free fluid in the pelvis, patient was started on Zosyn 4.5 gm IV q6hr. [facility] Disclaimer: The information contained in this section may have been updated after the patient was seen, as this information can be updated by other users. Medical History Uterus didelphys Social History Smoking Status: Never smoker alcohol intake: never substance use type: denies use current occupational status: other Travel in the last 8 weeks: None household members: family housing: house number of children: 0 Review of Systems Review of Systems Review of systems:: pertinent systems reviewed and negative unless documented below Meds Home Medications and Allergies Home Medications Medication Instructions Recorded Confirmed Type No Known Home Medications 03/04/23 03/04/23 History New Prescriptions to Start Prescriptions: Allergies Allergy/AdvReac Type Severity Reaction Status Date / Time No Known Allergies Allergy Verified 06/24/22 12:38 Exam (Inpt) Vital signs and Labs for Last 24 Hours: Temp Pulse Resp BP Pulse Ox 98.2 F 62 18 116/68 97 03/05/23 07:19 03/05/23 07:19 03/05/23 07:19 03/05/23 07:19 03/05/23 07:19 Laboratory Results - last 24 hr 03/04/23 14:53: Urine Color Yellow, Urine Appearance Sl cloudy, Urine pH 6.0, Ur Specific [place] >= 1.030, Urine Protein 1+, Urine Glucose (UA) Negative, Urine Ketones 2+, Urine Blood 3+, Urine Nitrate Negative, Urine Bilirubin 1+ A, Urine Urobilinogen 0.2, Ur Leukocyte Esterase Negative, Urine RBC 5-10, Urine WBC Occasional, Ur Squamous Epith Cells 3-5, Urine Bacteria None 03/04/23 14:53: Urine HCG, Qual Negative 03/04/23 15:35: WBC 18.2 H, RBC 5.04, Hgb 15.1, Hct 46.1, MCV 91.5, MCH 30.0, MCHC 32.8, RDW 13.2, Plt Count 315, MPV 7.8, Neut % (Auto) 90.2 H, Lymph % (Auto) 5.7 L, [place] % (Auto) 3.6, Eos % (Auto) 0.2, Baso % (Auto) 0.3, Neut # (Auto) 16.5 H, Lymph # (Auto) 1.0, [place] # (Auto) 0.7, Eos # (Auto) 0.0, Baso # (Auto) 0.1, Total Counted 100, Neutrophils % (Manual) 89 H, Lymphocytes % (Manual) 8 L, Monocytes % (Manual) 3, Platelet Estimate Normal, RBC Morphology Normal 03/04/23 15:35: Sodium 138, Potassium 4.1, Chloride 101, Carbon Dioxide 20 L, Anion Gap 21.1 H, BUN 12, Creatinine 0.60, Estimated Creat Clear 129, Estimated GFR 127, Est GFR ( Amer) 154, Glucose 140 H, Calcium 9.6, Total Bilirubin 1.1, AST 37 H, ALT 32, Alkaline Phosphatase 80, Total Protein 8.0, Albumin 4.7, Globulin 3.3 H, Albumin/Globulin Ratio 1.4, Lipase 99 03/04/23 17:45: SARS-CoV-2 (PCR) Not detected, Influenza A Untype (PCR) Not detected, Influenza Type B (PCR) Not detected 03/05/23 05:55: WBC 17.0 H, RBC 5.00, Hgb 14.8, Hct 45.7, MCV 91.4, MCH 29.6, MCHC 32.3, RDW 13.1, Plt Count 328, MPV 7.2 L, Neut % (Auto) 88.6 H, Lymph % (Auto) 6.4 L, [place] % (Auto) 4.3, Eos % (Auto) 0.6, Baso % (Auto) 0.1, Neut # (Auto) 15.1 H, Lymph # (Auto) 1.1, [place] # (Aut
--- NOTE | 2023-03-05 14:59 | EXP.DC.SUM ---
General Admission date:: 03/04/23 Discharge date: 03/05/23 HPI HPI HPI: Ms. Mayo is a 22 year old female who presented to the ER with complaints of abdominal pain with intractable nausea and vomiting. Work-up in the ER, CBC demonstrated leukocytosis. Chemistry was unremarkable, except for high anion gap. 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 Patient was treated with IVF bolus, along with zofran and phenergan. Patient also received dilaudid for abdominal pain. Despite antiemetics and pain medication, she continued to have ongoing nausea and abdominal pain, along with inability to keep anything down. ER physician discussed case with Dr. Rosario, who agreed inpatient admission for continued IVF resuscitation and antiemetics. Due to nonspecific free fluid in the pelvis, patient was started on Zosyn 4.5 gm IV q6hr. Hospital Course Hospital Course Hospital Course: The patient was admitted to the medical unit with IV fluid resuscitation and IV antiemetic therapy. Her symptoms resolved and she inquired about discharge home. Gynecology evaluated the patient and recommended an outpatient evaluation with appointment scheduled. The patient was counseled to discontinue routine marijuana use and she voiced understanding. She plans to follow-up with her PCP next week. Exam Data for Last 24 hours Vital signs and Labs for Last 24 Hours: Temp Pulse Resp BP Pulse Ox 98.2 F 62 18 116/68 97 03/05/23 07:19 03/05/23 07:19 03/05/23 07:19 03/05/23 07:19 03/05/23 07:19 Laboratory Results - last 24 hr 03/04/23 14:53: Urine Color Yellow, Urine Appearance Sl cloudy, Urine pH 6.0, Ur Specific [place] >= 1.030, Urine Protein 1+, Urine Glucose (UA) Negative, Urine Ketones 2+, Urine Blood 3+, Urine Nitrate Negative, Urine Bilirubin 1+ A, Urine Urobilinogen 0.2, Ur Leukocyte Esterase Negative, Urine RBC 5-10, Urine WBC Occasional, Ur Squamous Epith Cells 3-5, Urine Bacteria None 03/04/23 14:53: Urine HCG, Qual Negative 03/04/23 15:35: WBC 18.2 H, RBC 5.04, Hgb 15.1, Hct 46.1, MCV 91.5, MCH 30.0, MCHC 32.8, RDW 13.2, Plt Count 315, MPV 7.8, Neut % (Auto) 90.2 H, Lymph % (Auto) 5.7 L, [place] % (Auto) 3.6, Eos % (Auto) 0.2, Baso % (Auto) 0.3, Neut # (Auto) 16.5 H, Lymph # (Auto) 1.0, [place] # (Auto) 0.7, Eos # (Auto) 0.0, Baso # (Auto) 0.1, Total Counted 100, Neutrophils % (Manual) 89 H, Lymphocytes % (Manual) 8 L, Monocytes % (Manual) 3, Platelet Estimate Normal, RBC Morphology Normal 03/04/23 15:35: Sodium 138, Potassium 4.1, Chloride 101, Carbon Dioxide 20 L, Anion Gap 21.1 H, BUN 12, Creatinine 0.60, Estimated Creat Clear 129, Estimated GFR 127, Est GFR ( Amer) 154, Glucose 140 H, Calcium 9.6, Total Bilirubin 1.1, AST 37 H, ALT 32, Alkaline Phosphatase 80, Total Protein 8.0, Albumin 4.7, Globulin 3.3 H, Albumin/Globulin Ratio 1.4, Lipase 99 03/04/23 17:45: SARS-CoV-2 (PCR) Not detected, Influenza A Untype (PCR) Not detected, Influenza Type B (PCR) Not detected 03/05/23 05:55: WBC 17.0 H, RBC 5.00, Hgb 14.8, Hct 45.7, MCV 91.4, MCH 29.6, MCHC 32.3, RDW 13.1, Plt Count 328, MPV 7.2 L, Neut % (Auto) 88.6 H, Lymph % (Auto) 6.4 L, [place] % (Auto) 4.3, Eos % (Auto) 0.6, Baso % (Auto) 0.1, Neut # (Auto) 15.1 H, Lymph # (Auto) 1.1, [place] # (Auto) 0.7, Eos # (Auto) 0.1, Baso # (Auto) 0.0, Total Counted 100, Neutrophils % (Manual) 95 H, Lymphocytes % (Manual) 4 L, Monocytes % (Manual) 1 L, Platelet Estimate Normal, RBC Morphology Normal 03/05/23 05:55: Sodium 136, Potassium 3.6, Chloride 100, Carbon Dioxide 21 L, Anion Gap 18.6 H, BUN 8 D, Creatinine 0.60, Estimated Creat Clear 132, Estimated GFR 127, Est GFR ( Amer) 154, Glucose 134 H, Calcium 9.1, Magnesium 1.6, Total Bilirubin 1.4 H, AST 30, ALT 22 D, Alkaline Phosphatase 74, Total Protein 7.8, Albumin 4.6, Globulin 3.2, Albumin/Globulin Ratio 1.4 I & O for Last 24 hours: Intak
[2023-03-07 00:03] LABS: Neisseria gonorrhoeae, NAA Negative (Negative)
== END 2023-03-05 15:49 | disposition home or self-care (01) ==
LOC: ER 18:58 → 2ND 19:16
PROVIDERS: Admitting Provider Internal Medicine Adolescent Medicine; Emergency Provider Emergency Medicine; PCP Family Medicine; Visit Provider Internal Medicine Adolescent Medicine
DX: R11.10 Vomiting, unspecified (principal); Q51.28 Other and unspecified doubling of uterus; F12.288 Cannabis dependence with other cannabis-induced disorder; R10.84 Generalized abdominal pain; Z20.822 Contact with and (suspected) exposure to COVID-19
CPT/HCPCS: 36415; 74177; 76830; 80053; 81001; 81025; 83690; 83735; 85007; 85025; 87040; 87491; 87591; 99285; C9803; G0378; J2405; J2543; Q9967; U0003; U0005

== ENCOUNTER 2023-04-30 09:19 | Emergency (ER) | payer MEDICAID, SELFPAY ==
[2023-04-30 09:24] VITALS: PULSE 60; RESP 20; TEMP 36.5; O2SAT 97; BMI 24.2
[2023-04-30 09:43] LABS: Chloride 106 mmol/L (98-107); Potassium 3.3 mmoL/L (3.5-5.1); Sodium 141 mmol/L (136-145)
--- NOTE | 2023-04-30 09:43 | HMH.EDGENADL ---
Discharge Plan Disposition Chief Complaint: Abdominal Pain Prescriptions Prescriptions: No Action No Known Home Medications Referrals Follow up/Referrals: Anthony Meng MD [Primary Care Provider] - See instructions Instructions Patient Instructions: DI for Acute Abdominal Pain Discharge ED Provider: Jason Alexis General Adult HPI General Chief complaint: Abdominal Pain Stated complaint: Abd pain vomiting Time Seen by Provider: 04/30/23 10:01 Mode of Arrival: Ambulatory Source of Information: Patient Limitations: No Limitations Description of Symptoms (Recalled from ER Triage Doc. by RN): pt to ed c/o bilateral UQ pain and vomiting x3 days. pt states she attempted to take an odt zofran and vomited it back up. pt states she started her menstral cycle this morning. History of Present Illness HPI narrative: This is a 22-year-old white female who presents emergency room with epigastric pain that is nonradiating for the past 3 days the pain describes simply as pain nonprovoked not palliated. Pain accompanied by nausea and vomiting no diarrhea no melena hematochezia or hematemesis no fevers or chills no dysuria pyuria or hematuria. Related Data Home Medications Medication Instructions Recorded Confirmed No Known Home Medications 03/04/23 03/04/23 Allergies Allergy/AdvReac Type Severity Reaction Status Date / Time No Known Allergies Allergy Verified 06/24/22 12:38 [facility] Disclaimer: The information contained in this section may have been updated after the patient was seen, as this information can be updated by other users. Medical History Uterus didelphys Social History Smoking Status: Current every day smoker alcohol intake: never substance use type: denies use current occupational status: other Travel in the last 8 weeks: None household members: family housing: house number of children: 0 ROS Obtained: Yes All systems reviewed & no additional complaints except as documented Skin no rash or lesions HEENT no runny nose sore throat Pulmonary no cough or shortness of breath Cardiovascular no chest pain pressure heaviness GI see HPI no dysuria pyuria hematuria Musculoskeletal no neck or back pain Endocrine no polydipsia polyuria or polyphasia Psych no SI or HI The rest of the systems were reviewed and found to be negative Physical Exam Narrative Physical exam: Skin: Warm and dry HEENT: Normocephalic atraumatic extract muscles are intact pupils are equal and reactive to light Neck: Supple nontender Lungs: Clear to auscultation Heart: Regular rate and rhythm Abdomen: NABS soft with epigastric tenderness no guarding or rebound Extremities: No clubbing cyanosis or edema Neurologic: No unilateral weakness or numbness Lymphatic: No cervical or inguinal adenopathy Musculoskeletal: No tenderness of the dorsal or lumbar spine Psych: No SI or HI General General appearance: alert Respiratory Respiratory exam: Present normal lung sounds bilaterally Cardiovascular Cardiovascular exam: Present regular rate Neurological Exam Neurological exam: Present alert Medical Decision Making Reginald Inquiry Pt receiving controlled substance: No Vital Signs: 04/30/23 09:24 04/30/23 10:01 04/30/23 10:30 Temperature 97.7 F Temperature Source Oral Pulse Rate 70 63 Pulse Rate [Left Radial] 60 Respiratory Rate 20 20 18 Blood Pressure 134/82 144/77 H Blood Pressure Mean 99 99 02 Sat by Pulse Oximetry 97 100 97 Oxygen Delivery Method Room Air 04/30/23 11:01 Temperature Temperature Source Pulse Rate 71 Pulse Rate [Left Radial] Respiratory Rate Blood Pressure 121/78 Blood Pressure Mean 92 02 Sat by Pulse Oximetry 97 Oxygen Delivery Method Room Air Lab Data Lab Results 04/30/23 09:30: WBC 16.5 H, RBC 5.12, Hgb 14.8, Hct 46.0, MCV 89.7, MCH 2
[2023-04-30 09:44] LABS: Basophils % 0.3 % (0.1-2.0); Eosinophils # 0.1 K/mm3 (0.0-0.4); Eosinophils % 0.8 % (0.1-12.0); Hemoglobin 14.8 g/dL (12.2-16.2); Lymphocytes % 5.9 % (10-50); Mean Corpuscular HGB Conc 32.2 g/dL (31.8-35.4); Mean Corpuscular Hemoglobin 28.9 pg (27.0-31.2); Mean Corpuscular Volume 89.7 fl (81-99); Mean Platelet Volume 7.3 fl (7.4-10.4); Monocytes # 0.8 K/mm3 (0.1-1.0); Monocytes % 4.5 % (1.7-9.3); Neutrophils # 14.6 K/mm3 (1.8-7.8); Neutrophils % 88.5 % (37.0-80.0); Platelet Count 290 K/mm3 (142-424); Red Blood Count 5.12 M/mm3 (4.20-5.40); Red Cell Distribution Width 12.8 % (11.5-17.5); White Blood Count 16.5 K/mm3 (4.5-13.0)
[2023-04-30 09:46] LABS: Alanine Aminotransferase 30 U/L (12-78); Albumin Level 4.7 g/dl (3.5-5.0); Albumin/Globulin Ratio 1.4 (1.1-1.8); Alkaline Phosphatase 85 U/L (38-126); Anion Gap 16.3 mEq/L (5-15); Aspartate Amino Transferase 35 U/L (14-36); Bilirubin,Total 0.6 mg/dl (0.2-1.3); Blood Urea Nitrogen 13 mg/dl (7-17); Calcium 9.3 mg/dl (8.4-10.2); Carbon Dioxide 22 mmol/L (22.0-30.0); Creatinine Clearance Estimated 129 mL/min (50-200); Estimated Glomerular Filt Rate 127 ml/min (>60); GFR (African American) 154 ML/MIN (>60); Globulin 3.4 g/dL (1.3-3.2); Glucose 139 mg/dl (74-100); Total Protein,Serum 8.1 g/dl (6.3-8.2)
[2023-04-30 09:47] LABS: MANUAL DIFFERENTIAL MANUAL DIFFERENTIAL (MANUAL DIFF)
[2023-04-30 09:52] LABS: HCG Qualitative, Serum Negative (Negative)
[2023-04-30 10:01] VITALS: BP 134/82; PULSE 70; RESP 20; O2SAT 100
[2023-04-30 10:02] LABS: Lymphocytes % 6 % (10-50); Monocytes % 4 % (2-9); Neutrophils % 90 % (42-76); Platelet Estimate Normal; RBC Morphology Normal; Total Cells Counted 100
--- NOTE | 2023-04-30 10:07 | XR_ITS ---
PROCEDURE INFORMATION: Exam: XR Complete Acute Abdomen Series Including Chest Exam date and time: 04/30/2023 10:08 AM Age: 22 years old Clinical indication: Abdominal pain; Additional info: Abd pain TECHNIQUE: Imaging protocol: Radiologic exam. Complete acute abdomen series, including 2 or more views of the abdomen and a single view chest. COMPARISON: CT ABDOMEN PELVIS W CON 03/04/2023 4:55 PM FINDINGS: Lungs: Normal. No consolidation. Pleural spaces: Normal. No pleural effusions. No pneumothorax. Heart/Mediastinum: Normal. No cardiomegaly. Gastrointestinal tract: No bowel dilatation. Relative paucity of gas demonstrated. Intraperitoneal space: Normal. No free air. Air-filled tampon in place. Bones/joints: Normal. No acute fracture. Soft tissues: Normal. IMPRESSION: 1. No acute findings. 2. Nonspecific bowel gas pattern.
[2023-04-30 10:25] LABS: Lipase 102 U/L (23-300)
[2023-04-30 10:30] VITALS: BP 144/77; PULSE 63; RESP 18; O2SAT 97
[2023-04-30 11:01] VITALS: BP 121/78; PULSE 71; O2SAT 97
--- NOTE | 2023-04-30 11:10 | PC.NURSE ---
bowen rounded on pts
[2023-04-30 11:28] LABS: Microscopic, Urine URINE MICROSCOPIC (MICROSCOPIC)
--- NOTE | 2023-04-30 11:28 | PC.NURSE ---
notified MD that pt is requesting pain medication. no new medication orders placed.
--- NOTE | 2023-04-30 11:35 | PC.NURSE ---
pt is updated about pain medicine, MD states that narcotics or toradol would help the pt symptoms at this time. New med order placed and given
[2023-04-30 11:36] LABS: Appearance,Urine CLEAR (Clear); Bilirubin,Urine Negative (Negative); Blood, Urine Negative (Negative); Color,Urine YELLOW (Yellow); Glucose,Urine (UA) Negative (Negative); Ketones,Urine 1+ (Negative); Leukocyte Esterase,Urine Negative (Negative); Nitrate,Urine Negative (Negative); Protein,Urine Negative (Negative); Urobilinogen,Urine 0.2 EU/dl (0.2)
[2023-04-30 11:40] LABS: Amphetamine/Metha Screen,Urine Negative ng/ml (<1000)
[2023-04-30 11:41] LABS: Barbiturates Screen,Urine Negative ng/ml (<200)
[2023-04-30 11:42] LABS: Benzodiazepines Screen,Urine Negative ng/ml (<200); Cannabinoid Screen,Urine Positive ng/ml (<50)
[2023-04-30 11:43] LABS: Cocaine Screen,Urine Negative ng/ml (<300)
[2023-04-30 11:44] LABS: Methadone Screen,Urine Negative ng/ml (<300); Opiate Screen,Urine Negative ng/ml (<300)
[2023-04-30 11:45] LABS: Phencyclidine Screen,Urine Negative ng/ml (<25)
[2023-04-30 12:00] LABS: Amorphous Sediment,Urine 2+ /lpf; Bacteria,Urine Trace /lpf; Squamous Epithelial Cell,Urine Occasional #/hpf (0-5)
--- NOTE | 2023-04-30 12:38 | PC.NURSE ---
bowen rounded on pts
--- NOTE | 2023-04-30 12:56 | PC.NURSE ---
pt able to keep 120 ml of water with no issues, pt states she feels able to go home. aware
[2023-04-30 13:05] VITALS: BP 155/70; PULSE 90; RESP 20; TEMP 36.5; O2SAT 98
== END 2023-04-30 13:07 | disposition home or self-care (01) ==
PROVIDERS: Emergency Provider Emergency Medicine; PCP Family Medicine
DX: R10.11 Right upper quadrant pain (principal); R10.12 Left upper quadrant pain; R11.2 Nausea with vomiting, unspecified
CPT/HCPCS: 74021; 80053; 80305; 81001; 83690; 84703; 85007; 85025; 96361; 96374; 96375; 99285

== ENCOUNTER → 2023-05-28 11:00 | Outpatient (CLI) | payer MEDICAID, SELFPAY ==
[2023-05-28 18:18] LABS: Basophils % 0.4 % (0.1-2.0); Eosinophils # 0.1 K/mm3 (0.0-0.4); Eosinophils % 1.5 % (0.1-12.0); Hematocrit 44.9 % (37.0-47.0); Hemoglobin 14.3 g/dL (12.2-16.2); Lymphocytes # 1.2 K/mm3 (0.7-4.5); Lymphocytes % 27.1 % (10-50); Mean Corpuscular HGB Conc 31.9 g/dL (31.8-35.4); Mean Corpuscular Hemoglobin 29.5 pg (27.0-31.2); Mean Corpuscular Volume 92.5 fl (81-99); Mean Platelet Volume 8.5 fl (7.4-10.4); Monocytes # 0.3 K/mm3 (0.1-1.0); Monocytes % 6.5 % (1.7-9.3); Neutrophils # 2.8 K/mm3 (1.8-7.8); Neutrophils % 64.3 % (37.0-80.0); Platelet Count 295 K/mm3 (142-424); Red Blood Count 4.86 M/mm3 (4.20-5.40); Red Cell Distribution Width 12.9 % (11.5-17.5); White Blood Count 4.3 K/mm3 (4.5-13.0)
== END ==
PROVIDERS: PCP Student in an Organized Health Care Education/Training Program; Visit Provider Student in an Organized Health Care Education/Training Program
DX: K62.5 Hemorrhage of anus and rectum (principal)
CPT/HCPCS: 85025

== ENCOUNTER 2024-02-23 22:38 | Emergency (ER) | payer MEDICAID, SELFPAY ==
[2024-02-23 22:49] VITALS: BP 156/87; PULSE 97; RESP 19; TEMP 36.7; O2SAT 98; BMI 27.8
[2024-02-23] MEDS: LACTATED RINGERS 1000ML 500 ML 999 ML IV (23:00)
[2024-02-23 23:05] LABS: Chloride 105 mmol/L (98-107); Potassium 3.5 mmoL/L (3.5-5.1); Sodium 135 mmol/L (136-145)
[2024-02-23 23:06] LABS: Basophils # 0.1 K/mm3 (0-0.2); Basophils % 0.3 % (0.1-2.0); Eosinophils # 0.2 K/mm3 (0.0-0.4); Eosinophils % 1.1 % (0.1-12.0); Hematocrit 46.1 % (37.0-47.0); Hemoglobin 15.5 g/dL (12.2-16.2); Lymphocytes # 1.2 K/mm3 (0.7-4.5); Lymphocytes % 8.7 % (10-50); Mean Corpuscular HGB Conc 33.7 g/dL (31.8-35.4); Mean Corpuscular Volume 92.1 fl (81-99); Mean Platelet Volume 7.6 fl (7.4-10.4); Monocytes # 0.5 K/mm3 (0.1-1.0); Monocytes % 3.4 % (1.7-9.3); Neutrophils # 12.3 K/mm3 (1.8-7.8); Neutrophils % 86.5 % (37.0-80.0); Platelet Count 299 K/mm3 (142-424); Red Blood Count 5.01 M/mm3 (4.20-5.40); Red Cell Distribution Width 13.7 % (11.5-17.5); White Blood Count 14.2 K/mm3 (4.8-10.8)
[2024-02-23 23:07] LABS: MANUAL DIFFERENTIAL MANUAL DIFFERENTIAL (MANUAL DIFF)
[2024-02-23 23:08] LABS: Alanine Aminotransferase 23 U/L (12-78); Albumin Level 4.8 g/dl (3.5-5.0); Albumin/Globulin Ratio 1.3 (1.1-1.8); Alkaline Phosphatase 78 U/L (38-126); Anion Gap 18.5 mEq/L (5-15); Aspartate Amino Transferase 33 U/L (14-36); Bilirubin,Total 2.2 mg/dl (0.2-1.3); Blood Urea Nitrogen 7 mg/dl (7-17); Carbon Dioxide 15 mmol/L (22.0-30.0); Creatinine Clearance Estimated 176 mL/min (50-200); Estimated Glomerular Filt Rate 156 ml/min (>60); GFR (African American) 188 ML/MIN (>60); Globulin 3.7 g/dL (1.3-3.2); Total Protein,Serum 8.5 g/dl (6.3-8.2)
[2024-02-23 23:09] LABS: Calcium 9.9 mg/dl (8.4-10.2); Glucose 90 mg/dl (74-100)
--- NOTE | 2024-02-23 23:18 | ED_ITS ---
Discharge Plan Disposition Patient Disposition: Home, Self-Care Prescriptions Prescriptions: New ondansetron HCl 4 mg tablet 4 mg PO Q8H PRN (Reason: nausea and vomiting) 5 Days Qty: 30 0RF cephalexin 500 mg capsule 500 mg PO QID 5 Days Qty: 20 0RF No Action ondansetron 4 mg tablet,disintegrating 4 mg PO Q8H PRN (Reason: nausea and vomiting) Qty: 30 0RF Referrals Follow up/Referrals: Anthony Meng MD [Primary Care Provider] - See instructions Activity Restrictions/Add. Instructions Additional Instructions/Restrictions: Your lab work showed dehydration and recommend following up with your PLATING TANK OPERATOR. Please return to the ER if you are unable to keep down liquids. Please continue to take your doxylamine pyridoxine and Reglan as needed for nausea vomiting. Add Zofran as needed for persistent nausea vomiting. Consider Maalox, Tums etc. for your abdominal pain. Please take antibiotics as prescribed for treatment of asymptomatic bacteriuria in . Clinical Impressions Clinical Impression: Acute dehydration, Nausea and vomiting during prior to 22 weeks gestation, Asymptomatic bacteriuria during in first trimester Instructions Patient Instructions: DI for Diarrhea and Traveler's Diarrhea -- Adult, DI for Diarrhea and Traveler's Diarrhea -- Child, DI for Nausea -- Adult, DI for Nausea -- Child Discharge ED Provider: Goran Resendiz General Adult HPI General Chief complaint: Nausea/Vomiting/Diarrhea Stated complaint: Vomiting,Abdominal Pin,11 wks Time Seen by Provider: 02/23/24 22:59 Mode of Arrival: Family Vehicle Source of Information: Patient Limitations: No Limitations Description of Symptoms (Recalled from ER Triage Doc. by RN): 23 yo female presents with continuous n/v. G1PO. Has been seen multiple times at [facility] for same issues, told it's because she quit smoking marijuana cold turkey a week ago. Last BM was 02/19. Patient is complaining of abd discomfort associated with vomiting and also with attempts to void or defecate. OB MD is at [facility] [place]. Current med: Reglan and bonjesta. NKA History of Present Illness HPI narrative: 23-year-old female presents with nausea vomiting. She is approximate 11 weeks , first . She reports that she has had no blood in the vomit. Is been ongoing since Saturday. She is seen by PLATING TANK OPERATOR at [facility]. She reports that she is having a burning/gnawing abdominal pain, worse in the epigastric region, worse with vomiting. She was seen at [facility] and was prescribed Reglan, she reports that it has not helped. She is also on doxylamine pyridoxine. She reports that she recently quit smoking marijuana. She reports that she has not really been able to keep any liquids down for the last several days. She did have an episode of diarrhea on Saturday, but has not had a bowel movement since that time, approximate 2 and half days. She reports that she normally has a least 1-2 bowel movements per day. She also reports that she is having some burning with urination. Denies any lower abdominal pain. Reports history of prior cholecystectomy. Related Data Previous Rx's Medication Instructions Recorded ondansetron 4 mg disintegrating 4 mg PO Q8H PRN nausea and 06/05/23 tablet vomiting #30 tabs cephalexin 500 mg capsule 500 mg PO QID 5 days #20 caps 02/24/24 ondansetron HCl 4 mg tablet 4 mg PO Q8H PRN nausea and 02/24/24 vomiting 5 days #30 tabs Allergies Allergy/AdvReac Type Severity Reaction Status Date / Time No Known Allergies Allergy Verified 06/05/23 10:03 [facility] Disclaimer: The information contained in this section may have been updated after the patient was seen, as this information can be updated by other users. Medical History Uterus didelphys Social History Smoking Status: Unknown if ever smoked alcohol intake: never substance use type: denies use current occupational status: other Travel in the last 8 weeks: None household members: family housing: house number of children: 0 ROS Obtained: Yes All systems reviewed & no additional complaints except as documented Physical Exam General General appearance: alert Comment: Uncomfortable appearing Head Head exam: atraumatic and normocephalic Eye Eye exam: Present normal appearance, PERRL and EOMI ENT ENT exam: Present normal oropharynx, mucous membranes dry and normal external ear exam Neck Neck exam: Present normal inspection and full ROM Chest Chest inspection: Present normal inspection and symmetric chest wall rise; Absent tenderness Respiratory Respiratory exam: Present normal lung sounds bilaterally; Absent respiratory distress Cardiovascular Cardiovascular exam: Present regular rate and normal rhythm Abdominal Exam Abdominal exam: Present soft and tenderness (Generalized, worse in the epigastric region); Absent distention or guarding Extremities Exam Extremities exam: Present normal inspection; Absent edema or joint swelling Back Exam Back exam: Present normal inspection and CVA tenderness (L); Absent tenderness Neurological Exam Neurological exam: Present alert and oriented X3; Absent motor sensory deficit Psychiatric Psychiatric exam: Present normal affect and normal mood Skin Skin exam: Present warm, dry and normal color Lymphatic Lymphatic Findings: no adenopathy Medical Decision Making Medical Records Medical records reviewed: Yes I reviewed the patient's medical records. Reginald Inquiry Pt receiving controlled substance: No Reginald was queried for this patient: No Vital Signs: 02/23/24 22:49 02/24/24 01:25 Temperature 98.0 F 98.5 F Temperature Source Oral Oral Pulse Rate 93 H Pulse Rate [Right Brachial] 97 H Respiratory Rate 19 14 Blood Pressure 122/77 Blood Pressure [Right Arm] 156/87 H Blood Pressure Mean [Right Arm] 110 Blood Pressure Source Automatic Cuff Blood Pressure Source [Right Arm] Automatic Cuff Blood Pressure Position Sitting Blood Pressure Position [Right Arm] Sitting 02 Sat by Pulse Oximetry 98 Oxygen Delivery Method Room Air Room Air Lab Data Lab results reviewed: Yes I reviewed the patient's lab results. Lab Results 02/23/24 22:51: WBC 14.2 H, RBC 5.01, Hgb 15.5, Hct 46.1, MCV 92.1, MCH 31.0, MCHC 33.7, RDW 13.7, Plt Count 299, MPV 7.6, Neut % (Auto) 86.5 H, Lymph % (Auto) 8.7 L, [place] % (Auto) 3.4, Eos % (Auto) 1.1, Baso % (Auto) 0.3, Neut # (Auto) 12.3 H, Lymph # (Auto) 1.2, [place] # (Auto) 0.5, Eos # (Auto) 0.2, Baso # (Auto) 0.1, Total Counted 100, Neutrophils % (Manual) 87 H, Lymphocytes % (Manual) 12, Monocytes % (Manual) 1 L, Platelet Estimate Normal, RBC Morphology Normal, Sodium 135 L, Potassium 3.5, Chloride 105, Carbon Dioxide 15 L, Anion Gap 18.5 H, BUN 7, Creatinine 0.50 L, Estimated Creat Clear 176, Estimated GFR 156, Est GFR ( Amer) 188, Glucose 90, Calcium 9.9, Magnesium 1.9, Total Bilirubin 2.2 H, AST 33, ALT 23, Alkaline Phosphatase 78, Total Protein 8.5 H, Albumin 4.8, Globulin 3.7 H, Albumin/Globulin Ratio 1.3, Lipase 153, HCG, Quant [id number] H 02/23/24 23:28: Urine Color Yellow, Urine Appearance Clear, Urine pH 6.0, Ur Specific [place] >= 1.030, Urine Protein 1+, Urine Glucose (UA) Negative, Urine Ketones 3+, Urine Blood Negative, Urine Nitrate Negative, Urine Bilirubin 1+ A, Urine Urobilinogen 1.0, Ur Leukocyte Esterase Negative, Urine RBC None, Urine WBC None, Ur Squamous Epith Cells 3-5, Urine Bacteria Trace 02/23/24 22:51 02/23/24 22:51 Orders (Tests/Meds): ED MEDICATIONS Discontinued Medications Generic Name Dose Route Start Last Admin Trade Name Josueq PRN Reason Stop Dose Admin Acetaminophen 1,000 mg 02/24/24 00:27 02/24/24 00:36 Acetaminophen 1,000mg/100ml Vial IV 02/24/24 00:28 1,000 mg ONCE ONE Administration Lactated Ringer's 500 mls @ 999 mls/hr 02/23/24 22:56 02/23/24 23:00 Lactated Ringer's 1000 Ml Bag IV 02/23/24 23:26 999 mls/hr .Q31M ONE Administration Lactated Ringer's 1,000 mls @ 999 mls/hr 02/23/24 23:30 02/23/24 23:46 Lactated Ringer's 1000 Ml Bag IV 02/24/24 00:30 999 mls/hr .Q1H1M ALEXANDRE Administration Lidocaine HCl 15 ml 02/23/24 23:11 02/23/24 23:44 Lidocaine 2% Viscous Dior 15ml Udc PO 02/23/24 23:12 Not Given ONCE ONE Ondansetron HCl 4 mg 02/23/24 23:12 02/23/24 23:45 Ondansetron 4mg/2ml Vial IV 02/23/24 23:13 4 mg ONCE ONE Administration Promethazine HCl 25 mg 02/24/24 00:27 02/24/24 00:35 Promethazine Hcl 25mg/Ml 1ml Vial IV 02/24/24 00:28 25 mg ONCE ONE Administration Sodium Chloride 25 ml 02/24/24 00:27 02/24/24 00:35 Sodium Chloride 0.9% 25ml Bag IV 02/24/24 00:28 25 ml ONCE ONE Administration ORDERS Category Date Time Status Complete Blood Count Auto Diff Stat Lab 02/23/24 22:51 Completed Comprehensive Metabolic Panel Stat Lab 02/23/24 22:51 Completed HCG,Quantitative Stat Lab 02/23/24 22:51 Completed Lipase Stat Lab 02/23/24 22:51 Completed MAG [Magnesium] Stat Lab 02/23/24 22:51 Completed Urinalysis and Microscopic Stat Lab 02/23/24 23:28 Completed Medical Decision Narrative: 23-year-old female, G1, P0, at 11 weeks, recently discontinued marijuana smoking, presents with 3 days of worsening nausea vomiting and epigastric abdominal pain. History was obtained interactive discussion with patient, family, chart review. On arrival, patient is afebrile, hemodynamically stable, uncomfortable appearing, moving all extremities spontaneously. Full physical exam performed and significant for mild generalized abdominal tenderness, worse in the epigastrium, dry mucous membranes. Differential includes but is not limited to hyperemesis gravidarum, dehydration, gastroenteritis, pancreatitis, erosive esophagitis, electrolyte derangement, UTI, pyelonephritis Patient was given 2 L IV fluid bolus, IV Tylenol 1 g, 4 mg IV Zofran, 25 mg IV Phenergan (after Zofran was ineffective) for symptomatic management and correction of underlying abnormalities. Workup initiated including CBC CMP mag lipase urinalysis. On re-evaluation, patient [remains afebrile, HD stable.] Looks much better. Patient was unable to keep down the viscous lidocaine, reports that it initially made her nausea and vomiting worse. She reports improvement in the nausea vomiting and abdominal pain after the other medication interventions however. Laboratory workup independently interpreted by me and significant for mild leukocytosis with white count of 14, findings consistent with dehydration with mildly elevated anion gap and low bicarb, mild hyperbilirubinemia and mild hyponatremia. Urinalysis most consistent with asymptomatic bacteriuria, also shows ketones. KUB/CT imaging was considered for assessment of patient's abdominal pain, but deemed unnecessary due to history and exam. Given patient history, exam and workup, patient's presentation most likely represents acute dehydration secondary to nausea vomiting in the setting of . Also has asymptomatic bacteriuria. I had extensive and repeated discussion with patient regarding her presentation, symptoms, medication interventions and plan moving forward. She will call her PLATING TANK OPERATOR in the morning for reassessment. She will continue to take her doxylamine pyridoxine and Reglan at home, I will prescribe Zofran for additional symptomatic control. She may require initiation of steroids if her symptoms do not improve. Patient was also prescribed cephalexin for treatment of asymptomatic bacteriuria. Patient was discharged in stable condition, return precautions given. Procedures Risk/Benefits of Procedure(s) Were Explained: Yes Critical Care Critical Care Time Critical Care Time: No
[2024-02-23 23:21] LABS: Magnesium 1.9 mg/dl (1.6-2.3)
[2024-02-23 23:33] LABS: Lymphocytes % 12 % (10-50); Monocytes % 1 % (2-9); Neutrophils % 87 % (42-76); Platelet Estimate Normal; RBC Morphology Normal; Total Cells Counted 100
[2024-02-23 23:35] LABS: Appearance,Urine CLEAR (Clear); Blood, Urine Negative (Negative); Color,Urine YELLOW (Yellow); Glucose,Urine (UA) Negative (Negative); Ketones,Urine 3+ (Negative); Leukocyte Esterase,Urine Negative (Negative); Nitrate,Urine Negative (Negative); Protein,Urine 1+ (Negative); Specific Gravity, Urine >= 1.030 (1.005-1.030)
[2024-02-23 23:37] LABS: Microscopic, Urine URINE MICROSCOPIC (MICROSCOPIC)
[2024-02-23] MEDS: ONDANSETRON 4MG/2ML VIAL 4 MG IV (23:45)
[2024-02-23] MEDS: LACTATED RINGERS 1000ML 1,000 ML 999 ML IV (23:46)
[2024-02-23 23:48] LABS: Lipase 153 U/L (23-300)
[2024-02-23 23:48] LABS: Bilirubin,Urine 1+ (Negative)
[2024-02-23 23:49] LABS: Bacteria,Urine Trace /lpf
[2024-02-23 23:50] LABS: HCG,Quantitative 70148 mIU/ml (0-5.42)
[2024-02-24] MEDS: PROMETHAZINE HCL 25MG/ML 1ML VIAL 25 MG IV (00:35)
[2024-02-24] MEDS: SODIUM CHLORIDE 0.9% 25ML BAG 25 ML IV (00:35)
[2024-02-24] MEDS: ACETAMINOPHEN 1,000MG/100ML VIAL 1000 MG IV (00:36)
[2024-02-24 01:25] VITALS: BP 122/77; PULSE 93; RESP 14; TEMP 36.9; O2SAT 100
== END 2024-02-24 01:32 | disposition home or self-care (01) ==
PROVIDERS: Emergency Medicine; Emergency Provider Emergency Medicine; PCP Family Medicine
DX: O21.9 Vomiting of pregnancy, unspecified (principal); E86.0 Dehydration; E87.1 Hypo-osmolality and hyponatremia; R10.13 Epigastric pain; O99.891 Other specified diseases and conditions complicating pregnancy; Z3A.11 11 weeks gestation of pregnancy
CPT/HCPCS: 80053; 81001; 83690; 83735; 84702; 85007; 85025; 96361; 96374; 96375; 99284; J0131; J2405

== ENCOUNTER 2024-03-08 08:09 | Observation (INO) | payer MEDICAID, SELFPAY ==
[2024-03-08 08:10] VITALS: BP 143/97; PULSE 94; RESP 13; TEMP 36.7; O2SAT 96; BMI 22.1
--- NOTE | 2024-03-08 08:14 | PC.NURSE ---
Dr. Morales at bedside
--- NOTE | 2024-03-08 08:14 | PC.NURSE ---
in room talking with patient at this time.
--- NOTE | 2024-03-08 08:28 | ED_ITS ---
Discharge Plan Disposition Chief Complaint: Abdominal Pain Clinical Impressions Clinical Impression: Hyperemesis gravidarum Discharge ED Provider: North Morales General Adult HPI General Chief complaint: Abdominal Pain Stated complaint: abd pain, vomiting Time Seen by Provider: 03/08/24 08:14 Mode of Arrival: Ambulatory Source of Information: Patient Limitations: No Limitations Description of Symptoms (Recalled from ER Triage Doc. by RN): pt presents to ED with abdominal pain and nausea/vomitting. pt is 14 weeks . pt has had multiple visit to ED for nausea/vomitting. 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 pt reports 20 pound weight loss this pregnany. . pt does have a history of marijuanna use but reports stoping 2 weeks ago. 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 This is her first she is 14 weeks gestational age by dates. She is followed by high risk at [facility]. She has stopped smoking weed several weeks ago no longer is having improvement with showers. She also has Zofran at home without any significant improvement. She has lost 20 pounds she was 135 pounds prior to being is now 115 from historical standpoint. She has some abdominal discomfort intermittent secondary nausea and vomiting. Related Data Previous Rx's Medication Instructions Recorded ondansetron 4 mg disintegrating 4 mg PO Q8H PRN nausea and 06/05/23 tablet vomiting #30 tabs cephalexin 500 mg capsule 500 mg PO QID 5 days #20 caps 02/24/24 ondansetron HCl 4 mg tablet 4 mg PO Q8H PRN nausea and 02/24/24 vomiting 5 days #30 tabs Allergies Allergy/AdvReac Type Severity Reaction Status Date / Time No Known Allergies Allergy Verified 06/05/23 10:03 [facility] Disclaimer: The information contained in this section may have been updated after the patient was seen, as this information can be updated by other users. Medical History Uterus didelphys Social History Smoking Status: Current every day smoker alcohol intake: never substance use type: denies use current occupational status: other Travel in the last 8 weeks: None household members: family housing: house number of children: 0 ROS Obtained: Yes All systems reviewed & no additional complaints except as documented Physical Exam General General appearance: alert and in no apparent distress Respiratory Respiratory exam: Present normal lung sounds bilaterally Cardiovascular Cardiovascular exam: Present regular rate and normal rhythm Abdominal Exam Abdominal exam: Present soft; Absent distention or tenderness Neurological Exam Neurological exam: Present alert and oriented X3 Medical Decision Making Reginald Inquiry Pt receiving controlled substance: No Vital Signs: 03/08/24 08:10 03/08/24 08:51 Temperature 98.1 F Temperature Source Oral Pulse Rate 90 Pulse Rate [Left Radial] 94 H Respiratory Rate 13 Blood Pressure 137/99 H Blood Pressure [Right Arm] 143/97 H Blood Pressure Mean [Right Arm] 112 02 Sat by Pulse Oximetry 96 100 Oxygen Delivery Method Room Air Lab Data Lab results reviewed: Yes I reviewed the patient's lab results. Lab Results 03/08/24 08:20: WBC 10.8, RBC 5.08, Hgb 15.7, Hct 46.4, MCV 91.4, MCH 30.8, MCHC 33.7, RDW 13.7, Plt Count 321, MPV 7.4, Neut % (Auto) 89.3 H, Lymph % (Auto) 7.6 L, [place] % (Auto) 1.8, Eos % (Auto) 0.7, Baso % (Auto) 0.5, Neut # (Auto) 9.7 H, Lymph # (Auto) 0.8, [place] # (Auto) 0.2, Eos # (Auto) 0.1, Baso # (Auto) 0.1, Sodium 136, Potassium 3.2 L, Chloride 99, Carbon Dioxide 26, Anion Gap 14.2, BUN 6 L, Creatinine 0.50 L, Estimated Creat Clear 150, Estimated GFR 156, Est GFR ( Amer) 188, Glucose 137 H, Calcium 9.5, Phosphorus 3.8, Magnesium 1.7, Total Bilirubin 0.8, AST 39 H, ALT 73, Alkaline Phosphatase 70, Total Protein 7.7, Albumin 4.4, Globulin 3.3 H, Albumin/Globulin Ratio 1.3 03/08/24 08:20 03/08/24 08:20 Orders (Tests/Meds): ED MEDICATIONS Discontinued Medications Generic Name Dose Route Start Last Admin Trade Name Priscilla PRN Reason Stop Dose Admin Acetaminophen 1,000 mg 03/08/24 09:00 03/08/24 09:12 Acetaminophen 1,000mg/100ml Vial IV 03/08/24 09:01 1,000 mg ONCE ONE Administration Lactated Ringer's 1,000 mls @ 999 mls/hr 03/08/24 08:30 03/08/24 08:35 Lactated Ringer's 1000 Ml Bag IV 03/08/24 09:30 999 mls/hr .Q1H1M ALEXANDRE Administration Ondansetron HCl 4 mg 03/08/24 08:23 03/08/24 08:35 Ondansetron 4mg/2ml Vial IV 03/08/24 08:24 4 mg ONCE ONE Administration Potassium Chloride 40 meq 03/08/24 08:55 03/08/24 09:06 Potassium Chloride 20meq Tab PO 03/08/24 08:56 Not Given ONCE ONE Potassium Chloride 40 meq 03/08/24 09:05 03/08/24 09:21 Potassium Chloride 20meq/15ml Udc PO 03/08/24 09:06 40 meq ONCE ONE Administration Promethazine HCl 12.5 mg 03/08/24 09:00 03/08/24 09:12 Promethazine Hcl 25mg/Ml 1ml Vial IV 03/08/24 09:01 12.5 mg ONCE ONE Administration Sodium Chloride 25 ml 03/08/24 09:00 03/08/24 09:11 Sodium Chloride 0.9% 25ml Bag IV 03/08/24 09:01 25 ml ONCE ONE Administration ORDERS Category Date Time Status POCUS Point of Care (ER Only) Stat Exams 03/08/24 08:26 Completed CBC w/Auto Diff [Complete Blood Count Auto Diff] Stat Lab 03/08/24 08:20 Results CMP [Comprehensive Metabolic Panel] Stat Lab 03/08/24 08:20 Completed Magnesium Stat Lab 03/08/24 08:20 Completed Phosphorous Stat Lab 03/08/24 08:20 Completed Medical Decision Narrative: 23-year-old female presents today with persistent nausea and vomiting in setting of . I will do a limited bedside ultrasound to evaluate . Additionally we will get basic blood work to check for electrolytes and organ dysfunction. This is consistent with hyperemesis gravidarum she has had significant weight loss will consider admission. IV fluids and Zofran will be administered and will reassess. Reassessment patient still having significant nausea and vomiting and abdominal discomfort we will add Phenergan and IV Tylenol. Limited bedside ultrasound was unremarkable. ED observation order placed as we are pending serial assessments with serial antiemetics to see if patient can tolerate p.o. and whether not we need to admit her. Reassessment patient is feeling better after her Phenergan however given her significant 20 pound weight loss I discussed with her going home with oral antiemetics versus coming in for continued IV fluids and more aggressive management of her nausea. She opted for the latter. I discussed the case with Dr. Mary Melton who is agreeable and admitted the patient for observation and symptomatic medication for her hyperemesis gravidarum and severe weight loss. Procedures Miscellaneous Procedure Procedure Performed: Limited OB ultrasound Indication: Nausea vomiting in Identified structures: [-Uterus -Left adnexa -Right adnexa -Pouch of Kofi] Findings: Definitive IUP heart rate 164 Right adnexa: No free fluid Left adnexa: No free [place] sac: No free fluid Impression: Definitive IUP with normal heart rate consistent with dates Images were saved to permanent archive The study was technically adequate [facility] Transabdominal: [id number] This study was performed by me, and I personally interpreted all images/videos. Based on my clinical judgement, these images were adequate and did not necessitate further imaging. Critical Care Critical Care Time Critical Care Time: No
[2024-03-08] MEDS: LACTATED RINGERS 1000ML 1,000 ML 999 ML IV (08:35)
[2024-03-08] MEDS: ONDANSETRON 4MG/2ML VIAL 4 MG IV (08:35)
[2024-03-08 08:40] LABS: Basophils # 0.1 K/mm3 (0-0.2); Basophils % 0.5 % (0.1-2.0); Eosinophils # 0.1 K/mm3 (0.0-0.4); Eosinophils % 0.7 % (0.1-12.0); Hematocrit 46.4 % (37.0-47.0); Hemoglobin 15.7 g/dL (12.2-16.2); Lymphocytes # 0.8 K/mm3 (0.7-4.5); Lymphocytes % 7.6 % (10-50); Mean Corpuscular HGB Conc 33.7 g/dL (31.8-35.4); Mean Corpuscular Hemoglobin 30.8 pg (27.0-31.2); Mean Corpuscular Volume 91.4 fl (81-99); Mean Platelet Volume 7.4 fl (7.4-10.4); Monocytes # 0.2 K/mm3 (0.1-1.0); Monocytes % 1.8 % (1.7-9.3); Neutrophils # 9.7 K/mm3 (1.8-7.8); Neutrophils % 89.3 % (37.0-80.0); Platelet Count 321 K/mm3 (142-424); Red Blood Count 5.08 M/mm3 (4.20-5.40); Red Cell Distribution Width 13.7 % (11.5-17.5); White Blood Count 10.8 K/mm3 (4.8-10.8)
[2024-03-08 08:44] LABS: MANUAL DIFFERENTIAL MANUAL DIFFERENTIAL (MANUAL DIFF)
[2024-03-08 08:46] LABS: Alanine Aminotransferase 73 U/L (12-78); Albumin Level 4.4 g/dl (3.5-5.0); Albumin/Globulin Ratio 1.3 (1.1-1.8); Alkaline Phosphatase 70 U/L (38-126); Anion Gap 14.2 mEq/L (5-15); Aspartate Amino Transferase 39 U/L (14-36); Bilirubin,Total 0.8 mg/dl (0.2-1.3); Blood Urea Nitrogen 6 mg/dl (7-17); Calcium 9.5 mg/dl (8.4-10.2); Carbon Dioxide 26 mmol/L (22.0-30.0); Chloride 99 mmol/L (98-107); Creatinine Clearance Estimated 150 mL/min (50-200); Estimated Glomerular Filt Rate 156 ml/min (>60); GFR (African American) 188 ML/MIN (>60); Globulin 3.3 g/dL (1.3-3.2); Glucose 137 mg/dl (74-100); Potassium 3.2 mmoL/L (3.5-5.1); Sodium 136 mmol/L (136-145); Total Protein,Serum 7.7 g/dl (6.3-8.2)
[2024-03-08 08:51] VITALS: BP 137/99; PULSE 90; O2SAT 100
[2024-03-08 09:07] LABS: Magnesium 1.7 mg/dl (1.6-2.3); Phosphorous 3.8 mg/dl (2.5-4.5)
[2024-03-08] MEDS: SODIUM CHLORIDE 0.9% 25ML BAG 25 ML IV (09:11)
[2024-03-08] MEDS: PROMETHAZINE HCL 25MG/ML 1ML VIAL 12.5 MG IV (09:12)
[2024-03-08] MEDS: ACETAMINOPHEN 1,000MG/100ML VIAL 1000 MG IV (09:12)
[2024-03-08] MEDS: POTASSIUM CHLORIDE 20MEQ/15ML UDC 40 MEQ PO (09:21)
--- NOTE | 2024-03-08 10:14 | PC.NURSE ---
Dr. Morales s/w Dr. Mary Melton
--- NOTE | 2024-03-08 10:20 | PC.NURSE ---
drawing supervisor notified of admission to Dr. Giles Melton. Bed request order placed.
--- NOTE | 2024-03-08 10:30 | PC.NURSE ---
Admissions notified of admit to room 279 to OB for hyperemesis to . OBS
--- NOTE | 2024-03-08 10:35 | PC.NURSE ---
report called to adryan on OB floor
--- NOTE | 2024-03-08 10:39 | ECG_ITS ---
APPROVED REPORT Exam: Resting ECG HR:77 bpm ECG Measurements Heart Rate 77 AXES MS 138 P 71 QRSd 85 QRS 91 QT 409 T 58 QTc 441 Conclusion SINUS RHYTHM WITH SINUS ARRHYTHMIA BORDERLINE RIGHT AXIS DEVIATION [QRS AXIS > 90] BORDERLINE ECG UNCONFIRMED REPORT Electronically signed by : Tigre Morales, 03/08/2024 15:19:48
[2024-03-08 10:47] VITALS: BP 135/80; PULSE 99; RESP 18; TEMP 36.6; O2SAT 98
--- NOTE | 2024-03-08 10:47 | HMH.PHAINT1 ---
Pharmacy Intervention Comments: MEDICATION RECONCILIATION COMPLETE USING EXTERNAL PHARMACY FILL HISTORY.
[2024-03-08 10:50] VITALS: BP 133/95; PULSE 86; RESP 18; TEMP 36.9; O2SAT 95; BMI 23.6
[2024-03-08 11:27] LABS: Lymphocytes % 11 % (10-50); Monocytes % 2 % (2-9); Neutrophils % 87 % (42-76); Total Cells Counted 100
--- NOTE | 2024-03-08 11:27 | EXP.HP ---
History of Present Illness *Admission Date: 03/08/24 *Reason for visit:: Hyperemesis gravidarum *History of present illness: Audra Mayo is a 23 year old female at 13w3d gestation who presented to the ER with complaints of abdominal pain with intractable nausea and vomiting. She has an JESUSITA: 09/10/24. Her symptoms are consistent with Hyperemesis Gravidarum, that is complicated by a 20lb weight loss. She has a hx of THC used, but states she stopped smoking 2 weeks ago. She receives care in [place] at [facility]. 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 She previously has a history of cannabinol hyperemesis and that with significant nausea and vomiting that was relieved with hot showers prior to her . Reports prior to presenting she tried a hot shower and Zofran at home without any improvement. At home she is also taking Bonjesta is being at the hospital she has received 4 mg of IV Zofran, 1000 mg of Tylenol, 12 and half milligrams of IV Phenergan, 10 mg of IV Reglan, and 25 mg of rectal prochlorperazine. She has also had potassium replacement. Patient states that her largest concern is being sent home too soon before the nausea and vomiting is under control. She states she is unable to tolerate crackers or any alina carbonated beverage. She refuses any p.o. challenges at this time [facility] Disclaimer: The information contained in this section may have been updated after the patient was seen, as this information can be updated by other users. Medical History Uterus didelphys Social History Smoking Status: Current every day smoker alcohol intake: never substance use type: denies use current occupational status: unemployed Travel in the last 8 weeks: None household members: family housing: house number of children: 0 Review of Systems Review of Systems Review of systems (narrative): Review of Systems Constitutional: Denies fever, chills, and sweats Eyes: Denies vision change/ pain Respiratory: Denies cough and shortness of breath Cardiovascular: Denies chest pain and lightheadedness Gastrointestinal: Admits abdominal pain, nausea, vomiting. Genitourinary: Denies dysuria and incontinence Musculoskeletal: Denies shoulder pain and back pain Neurological: Denies change in speech or headaches Meds Home Medications and Allergies Home Medications Medication Instructions Recorded Confirmed Type ondansetron 4 mg disintegrating 4 mg PO Q8H PRN nausea and 06/05/23 03/08/24 Rx tablet vomiting #30 tabs doxylamine 20 mg-pyridoxine 20 mg 1 tab PO Q12H 03/08/24 03/08/24 History tablet,immediate and delayed release (Bonjesta) famotidine 20 mg tablet 20 mg PO BID 03/08/24 03/08/24 History metoclopramide HCl 10 mg tablet 10 mg PO Q6HP PRN Nausea 03/08/24 03/08/24 History potassium chloride 10 mEq 10 meq PO BID 03/08/24 03/08/24 History tablet,extended release New Prescriptions to Start Prescriptions: Allergies Allergy/AdvReac Type Severity Reaction Status Date / Time No Known Allergies Allergy Verified 03/08/24 10:38 Exam Data for Last 24 hours Vital signs and Labs for Last 24 Hours: Temp Pulse Resp BP Pulse Ox O2 Del Method 98.4 F 86 18 133/95 H 95 Room Air 03/08/24 10:50 03/08/24 10:50 03/08/24 10:50 03/08/24 10:50 03/08/24 10:50 03/08/24 10:50 Laboratory Results - last 24 hr 03/08/24 08:20: WBC 10.8, RBC 5.08, Hgb 15.7, Hct 46.4, MCV 91.4, MCH 30.8, MCHC 33.7, RDW 13.7, Plt Count 321, MPV 7.4, Neut % (Auto) 89.3 H, Lymph % (Auto) 7.6 L, [place] % (Auto) 1.8, Eos % (Auto) 0.7, Baso % (Auto) 0.5, Neut # (Auto) 9.7 H, Lymph # (Auto) 0.8, [place] # (Auto) 0.2, Eos # (Auto) 0.1, Baso # (Auto) 0.1, Sodium 136, Potassium 3.2 L, Chloride 99, Carbon Dioxide 26, Anion Gap 14.2, BUN 6 L, Creatinine 0.50 L, Estimated Creat Clear 150, Estimated GFR 156, Est GFR ( Amer) 188, Glucose 137 H, Calcium 9.5, Phosphorus 3.8, Magnesium 1.7, Total Bilirubin 0.8, AST 39 H, ALT 73, Alkaline Phosphatase 70, Total Protein 7.7, Albumin 4.4, Globulin 3.3 H, Albumin/Globulin Ratio 1.3 I & O for Last 24 hours: Intake & Output 03/05/24 03/06/24 03/07/24 03/08/24 23:59 23:59 23:59 23:59 Weight 117 lb 4.575 oz Constitutional Constitutional: no acute distress *Routine HEENT Exam Head: Present normocephalic Eye: Present EOMI and PERRL ENT: Present mucous membranes dry *Routine Neck Exam Neck: Present supple; Absent lymphadenopathy *Routine Respiratory Exam Respiratory: Present CTA bilaterally, normal respiratory effort, able to speak in complete sentences and symmetric chest movement; Absent accessory muscle use, decreased breath sounds, distant breath sounds or diminished air movement *Routine Cardiovascular Exam Cardiovascular: Present RRR, Normal S1 and Normal S2; Absent murmur or gallop *Routine Abdominal Exam Abdominal: Present soft and tenderness (mild generalized abdominal tenderness); Absent distended, rebound, guarding or firm *Routine Rectal Exam Rectal:: deferred *Routine Genitalia Exam Genitalia:: deferred *Routine Extremities Exam Extremities: Present full ROM; Absent cyanosis, clubbing or edema *Routine Skin Exam Skin: Present intact, pallor and warm; Absent rash *Routine Neurological Exam Neurological: Present alert, oriented X3 and normal speech; Absent facial asymmetry Assessment and Plan *Assessment and plan (1) Cannabinoid hyperemesis syndrome: Status: Acute Category: Medical Code(s): R11.2 - Nausea with vomiting, unspecified; F12.90 - Cannabis use, unspecified, uncomplicated (2) Uterus didelphys: Status: Acute Category: Medical Code(s): Q51.28 - Other and unspecified doubling of uterus (3) Abdominal pain: Status: Resolved Qualifiers: Abdominal location: generalized Qualified Code(s): R10.84 - Generalized abdominal pain Category: Medical Code(s): R10.9 - Unspecified abdominal pain (4) Nausea & vomiting: Status: Resolved Qualifiers: Vomiting Intractability: unspecified Vomiting type: unspecified Qualified Code(s): R11.2 - Nausea with vomiting, unspecified Category: Medical Code(s): R11.2 - Nausea with vomiting, unspecified (5) Hyperemesis gravidarum: Status: Acute Category: Medical Code(s): O21.0 - Mild hyperemesis gravidarum Plan Follow with [facility] for care Continue LR 125 MLS per hour Reglan 10 mg IV every 8 as needed nausea vomiting ordered Zofran 4 mg IV every 6 hours ordered Prochlorperazine 25 mg MN every 12 as needed nausea vomiting Promethazine 12-1/2 mg IV every 8 as needed nausea vomiting EKG ordered to check for QT prolongation Normal white count, normal hemoglobin. No other CBC abnormalities noted Hypokalemia noted, received replacement in the ED Hypoglycemia noted if the patient is truly fasting. This may evaluate further workup from her primary OB Slightly elevated LFTs since previously checked. We will run a hepatitis screen on the patient, labs pending Patient will be obs overnight until we are able to get her nausea and vomiting under control
[2024-03-08 11:34] LABS: Platelet Estimate Normal; RBC Morphology Normal
--- NOTE | 2024-03-08 11:39 | PC.NURSE ---
Dr. Melton in room rounding
[2024-03-08] MEDS: LACTATED RINGERS 1000ML 1,000 ML 125 ML IV ×2 (11:51→20:04)
[2024-03-08] MEDS: METOCLOPRAMIDE HCL 10MG/2ML VIAL 10 MG IVP ×2 (11:51→20:04)
[2024-03-08] MEDS: PROCHLORPERAZINE 25MG SUPP 25 MG RC (11:56)
[2024-03-08 16:15] VITALS: BP 122/88; PULSE 78; RESP 17; TEMP 36.7; O2SAT 99
--- NOTE | 2024-03-08 16:15 | PC.NURSE ---
Reassessment completed at this time. Patient's nausea has improved since sediment remediation consultant per patient. Lungs cta and bowel sounds hypoactive. Iv infusing without difficulty. No edema noted and pulses 2+. Patient has had adequate output. No bowel movement my shift. Cap refil <3. S/O at bedside. No current needs voiced while RN in room. Call light within reach.
--- NOTE | 2024-03-08 16:42 | PC.NURSE ---
Dr Melton in room at this time.
[2024-03-08 18:53] LABS: Microscopic, Urine URINE MICROSCOPIC (MICROSCOPIC)
[2024-03-08 18:57] LABS: Appearance,Urine CLEAR (Clear); Bilirubin,Urine Negative (Negative); Blood, Urine Negative (Negative); Color,Urine YELLOW (Yellow); Glucose,Urine (UA) Negative (Negative); Ketones,Urine 3+ (Negative); Leukocyte Esterase,Urine Negative (Negative); Nitrate,Urine Negative (Negative); PH,Urine 7.5 (5.0-8.5); Protein,Urine Negative (Negative); Urobilinogen,Urine 0.2 EU/dl (0.2)
[2024-03-08 19:09] LABS: Benzodiazepines Screen,Urine Negative ng/ml (<200)
[2024-03-08 19:10] LABS: Amphetamine/Metha Screen,Urine Negative ng/ml (<1000)
[2024-03-08 19:11] LABS: Barbiturates Screen,Urine Negative ng/ml (<200); Cannabinoid Screen,Urine Positive ng/ml (<50)
[2024-03-08 19:12] LABS: Cocaine Screen,Urine Negative ng/ml (<300); Methadone Screen,Urine Negative ng/ml (<300)
[2024-03-08 19:13] LABS: Opiate Screen,Urine Negative ng/ml (<300)
[2024-03-08 19:14] LABS: Phencyclidine Screen,Urine Negative ng/ml (<25)
[2024-03-08 19:15] LABS: Squamous Epithelial Cell,Urine Occasional #/hpf (0-5); WBC,Urine Occasional #/hpf (0-3)
[2024-03-08 19:16] LABS: Amorphous Sediment,Urine Trace /lpf; Bacteria,Urine Trace /lpf
[2024-03-08 20:05] VITALS: BP 134/84; PULSE 87; RESP 18; TEMP 36.6; O2SAT 97
[2024-03-09] MEDS: LACTATED RINGERS 1000ML 1,000 ML 125 ML IV (03:56)
[2024-03-09 04:00] VITALS: BP 98/66; PULSE 74; RESP 17; TEMP 36.6; O2SAT 100
[2024-03-09 07:40] VITALS: BP 134/93; PULSE 94; RESP 18; TEMP 36.8; O2SAT 99
--- NOTE | 2024-03-09 08:21 | PC.NURSE ---
Auscultated heart tones with doppler. FHR 154.
[2024-03-09] MEDS: ONDANSETRON 4MG ODT 4 MG SL ×2 (09:03→15:07)
[2024-03-09] MEDS: MVI, ADULT NO.1 WITH VIT K 10 ML, THIAMINE HCL 100 MG, MAGNESIUM SULFATE 2 GM in LACTAT... 125 ML IV (09:03)
[2024-03-09 15:15] VITALS: BP 128/94; PULSE 72; RESP 18; TEMP 36.5; O2SAT 99
--- NOTE | 2024-03-09 17:31 | EXP.DC.SUM ---
General Admission date:: 03/08/24 Discharge date: 03/09/24 HPI HPI HPI: Audra Mayo is a 23 year old female at 13w3d gestation who presented to the ER with complaints of abdominal pain with intractable nausea and vomiting. She has an JESUSITA: 09/10/24. Her symptoms are consistent with Hyperemesis Gravidarum, that is complicated by a 20lb weight loss. She has a hx of THC used, but states she stopped smoking 2 weeks ago. She receives care in [place] at [facility]. 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 She previously has a history of cannabinol hyperemesis and that with significant nausea and vomiting that was relieved with hot showers prior to her . Reports prior to presenting she tried a hot shower and Zofran at home without any improvement. At home she is also taking Bonjesta is being at the hospital she has received 4 mg of IV Zofran, 1000 mg of Tylenol, 12 and half milligrams of IV Phenergan, 10 mg of IV Reglan, and 25 mg of rectal prochlorperazine. She has also had potassium replacement. Patient states that her largest concern is being sent home too soon before the nausea and vomiting is under control. She states she is unable to tolerate crackers or any alina carbonated beverage. She refuses any p.o. challenges at this time Hospital Course Hospital Course Hospital Course: She has done well throughout her hospitalization. Today we increased her oral intake to regular diet. She has been tolerating this well. She has not had any nausea or vomiting since the night before last. We have added regularly scheduled Zofran. 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 Exam Data for Last 24 hours Vital signs and Labs for Last 24 Hours: Temp Pulse Resp BP Pulse Ox O2 Del Method 97.7 F 72 18 128/94 H 99 Room Air 03/09/24 15:15 03/09/24 15:15 03/09/24 15:15 03/09/24 15:15 03/09/24 15:15 03/09/24 15:15 Laboratory Results - last 24 hr 03/08/24 18:50: Urine Color Yellow, Urine Appearance Clear, Urine pH 7.5, Ur Specific [place] 1.020, Urine Protein Negative, Urine Glucose (UA) Negative, Urine Ketones 3+, Urine Blood Negative, Urine Nitrate Negative, Urine Bilirubin Negative, Urine Urobilinogen 0.2, Ur Leukocyte Esterase Negative, Urine RBC None, Urine WBC Occasional, Ur Squamous Epith Cells Occasional, Amorphous Sediment Trace, Urine Bacteria Trace, Urine Opiates Screen Negative, Urine Methadone Screen Negative, Ur Barbituates Screen Negative, Ur Phencyclidine Scrn Negative, Ur Amphetamines Screen Negative, U Benzodiazepines Scrn Negative, Urine Cocaine Screen Negative, U Marijuana (THC) Screen Positive H I & O for Last 24 hours: Intake & Output 03/07/24 03/08/24 03/09/24 03/10/24 11:59 11:59 11:59 11:59 Output Total 200 / 500 600 / 600 Balance -200 / -500 -600 / -600 Weight 117 lb 4.575 oz Constitutional Constitutional: no acute distress *Routine HEENT Exam Head: Present normocephalic *Routine Neck Exam Neck: Present supple Results Data Completed and Pending Labs on day of discharge: Labs from last 24 hours 03/08/24 18:50 Urine Color Yellow Urine Appearance Clear Urine pH 7.5 Ur Specific [place] 1.020 Urine Protein Negative Urine Glucose (UA) Negative Urine Ketones 3+ Urine Blood Negative Urine Nitrate Negative Urine Bilirubin Negative Urine Urobilinogen 0.2 Ur Leukocyte Esterase Negative Urine RBC None Urine WBC Occasional Ur Squamous Epith Cells Occasional Amorphous Sediment Trace Urine Bacteria Trace Urine Opiates Screen Negative Urine Methadone Screen Negative Ur Barbituates Screen Negative Ur Phencyclidine Scrn Negative Ur Amphetamines Screen Negative U Benzodiazepines Scrn Negative Urine Cocaine Screen Negative U Marijuana (THC) Screen Positive H DS: Diagnosis Discharge Diagnosis (1) Cannabinoid hyperemesis syndrome: Status: Acute Code(s): R11.2 - Nausea with vomiting, unspecified; F12.90 - Cannabis use, unspecified, uncomplicated (2) Uterus didelphys: Status: Acute Code(s): Q51.28 - Other and unspecified doubling of uterus (3) Abdominal pain: Status: Resolved Code(s): R10.9 - Unspecified abdominal pain Qualifiers: Abdominal location: generalized Qualified Code(s): R10.84 - Generalized abdominal pain (4) Nausea & vomiting: Status: Resolved Code(s): R11.2 - Nausea with vomiting, unspecified Qualifiers: Vomiting Intractability: unspecified Vomiting type: unspecified Qualified Code(s): R11.2 - Nausea with vomiting, unspecified (5) Hyperemesis gravidarum: Status: Acute Code(s): O21.0 - Mild hyperemesis gravidarum Meds Home Medications and Allergies Home Medications Medication Instructions Recorded Confirmed Type ondansetron 4 mg disintegrating 4 mg PO Q8H PRN nausea and 06/05/23 03/08/24 Rx tablet vomiting #30 tabs doxylamine 20 mg-pyridoxine 20 mg 1 tab PO Q12H 03/08/24 03/08/24 History tablet,immediate and delayed release (Bonjesta) famotidine 20 mg tablet 20 mg PO BID 03/08/24 03/08/24 History metoclopramide HCl 10 mg tablet 10 mg PO Q6HP PRN Nausea 03/08/24 03/08/24 History potassium chloride 10 mEq 10 meq PO BID 03/08/24 03/08/24 History tablet,extended release New Prescriptions to Start Prescriptions: Allergies Allergy/AdvReac Type Severity Reaction Status Date / Time No Known Allergies Allergy Verified 03/08/24 10:38 Discharge Plan Disposition Patient Disposition: Home, Self-Care Condition: Fair Follow up Plan Prescriptions/Medication Reconciliation: Continued ondansetron 4 mg tablet,disintegrating 4 mg PO Q8H PRN (Reason: nausea and vomiting) Qty: 30 0RF famotidine 20 mg tablet 20 mg PO BID Patient Comments: TAKE 1 TABLET BY MOUTH TWICE DAILY metoclopramide HCl 10 mg tablet 10 mg PO Q6HP PRN (Reason: Nausea) Patient Comments: TAKE 1 TABLET BY MOUTH EVERY 6 HOURS NEEDED potassium chloride 10 mEq tablet extended release 10 meq PO BID Bonjesta 20-20 mg tablet,IR,delayed rel,biphasic 1 tab PO Q12H Problem Reconciliation Problems Reviewed?: Yes Patient Discharge Instructions ACTIVITY: Continue current activity DIET: continue same diet Providers Primary Care Provider: Provider,Referral Admit Provider: Mary Melton Attending Provider: Mary Melton
[2024-03-10 06:07] LABS: HBsAg Screen Negative (Negative); HCV Ab Non Reactive (Non Reactive); Hep A Ab, IGM Negative (Negative); Hep B Core Ab, IgM Negative (Negative)
== END 2024-03-09 18:04 | disposition home or self-care (01) ==
LOC: ER 08:55 → OB 10:31
PROVIDERS: Admitting Provider Obstetrics & Gynecology; Emergency Provider Student in an Organized Health Care Education/Training Program; Visit Provider Obstetrics & Gynecology
DX: O21.0 Mild hyperemesis gravidarum (principal); Z3A.14 14 weeks gestation of pregnancy; R11.2 Nausea with vomiting, unspecified; F12.90 Cannabis use, unspecified, uncomplicated; O99.321 Drug use complicating pregnancy, first trimester; O26.891 Other specified pregnancy related conditions, first trimester; R10.9 Unspecified abdominal pain
CPT/HCPCS: 80053; 80074; 80307; 81001; 83735; 84100; 85007; 85025; 93005; G0378; G0463; J0131; J2405

== ENCOUNTER 2024-03-21 00:51 | Inpatient (IN) | payer MEDICAID, SELFPAY ==
[2024-03-21] VITALS (15 sets, daily range): BP systolic 120–145; BP diastolic 71–96; PULSE 79–112; RESP 15–19; TEMP 36.6–36.9; O2SAT 96–100; BMI 19.3
--- NOTE | 2024-03-21 01:17 | PC.NURSE ---
Heart Tones of 127
[2024-03-21 01:38] LABS: Basophils % 0.2 % (0.1-2.0); Eosinophils % 0.3 % (0.1-12.0); Hematocrit 45.1 % (37.0-47.0); Lymphocytes # 0.9 K/mm3 (0.7-4.5); Lymphocytes % 7.3 % (10-50); Mean Corpuscular HGB Conc 33.3 g/dL (31.8-35.4); Mean Corpuscular Hemoglobin 31.1 pg (27.0-31.2); Mean Corpuscular Volume 93.2 fl (81-99); Mean Platelet Volume 7.3 fl (7.4-10.4); Monocytes # 0.2 K/mm3 (0.1-1.0); Monocytes % 1.7 % (1.7-9.3); Neutrophils # 10.8 K/mm3 (1.8-7.8); Neutrophils % 90.6 % (37.0-80.0); Platelet Count 298 K/mm3 (142-424); Red Blood Count 4.83 M/mm3 (4.20-5.40); Red Cell Distribution Width 13.8 % (11.5-17.5); White Blood Count 11.9 K/mm3 (4.8-10.8)
--- NOTE | 2024-03-21 01:39 | ED_ITS ---
Discharge Plan Disposition Patient Disposition: Home, Self-Care Prescriptions Prescriptions: New promethazine 25 mg tablet 25 mg PO TID PRN (Reason: nausea and vomiting) Qty: 20 0RF Rx Instructions: Do not combine with metoclopramide. No Action famotidine 20 mg tablet 20 mg PO BID Patient Comments: TAKE 1 TABLET BY MOUTH TWICE DAILY potassium chloride 10 mEq tablet extended release 10 meq PO BID Bonjesta 20-20 mg tablet,IR,delayed rel,biphasic 1 tab PO Q12H ondansetron 4 mg tablet,disintegrating 4 mg PO Q8H PRN (Reason: nausea and vomiting) Qty: 30 0RF metoclopramide HCl 10 mg tablet 10 mg PO Q6HP PRN (Reason: Nausea) Qty: 60 1RF Referrals Follow up/Referrals: Anthony Meng MD [Primary Care Provider] - See instructions Clinical Impressions Clinical Impression: Hyperemesis gravidarum, Nausea and vomiting during prior to 22 weeks gestation Stand Alone Forms Stand Alone Forms: Transfer Record - ED Discharge ED Provider: Emmanuel Ritter General Adult HPI General Chief complaint: Nausea/Vomiting/Diarrhea Stated complaint: severe abd pain,vomitting,15 wks antepartum Time Seen by Provider: 03/21/24 01:01 Mode of Arrival: Family Vehicle Source of Information: Patient Limitations: No Limitations Description of Symptoms (Recalled from ER Triage Doc. by RN): 23 yo female presents to ED for continued n/v and onset of abd discomfort. States she is 15 weeks preg and been dealing with hyperemesis gravidium since the onset of the preg. Rates pain 9/10. denies vaginal bleeding/discharge History of Present Illness HPI narrative: Patient is a 23-year-old female G1, P0 EGA 15 weeks who presents emergency department for evaluation of vomiting. 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 Patient has had vomiting since 7 PM today that is worse than normal. She has had vomiting throughout her and has been intermittently responsive to metoclopramide, today it is refractory to Zofran. Patient has generalized abdominal pain, has had previous cholecystectomy. Patient has history of uterine dialysis, previous cannabinoid hyperemesis not currently smoking marijuana. She has had a 20 pound weight loss throughout the course. She is followed by Dr. Neal with [facility] with [employer]. Per chart review patient was admitted on 03/05 with similar symptoms and was subsequently transitioned to oral antiemetics and discharged home. Related Data Home Medications Medication Instructions Recorded Confirmed doxylamine 20 mg-pyridoxine 20 mg 1 tab PO Q12H 03/08/24 03/08/24 tablet,immediate and delayed release (Bonjesta) famotidine 20 mg tablet 20 mg PO BID 03/08/24 03/08/24 potassium chloride 10 mEq 10 meq PO BID 03/08/24 03/08/24 tablet,extended release Previous Rx's Medication Instructions Recorded metoclopramide HCl 10 mg tablet 10 mg PO Q6HP PRN Nausea #60 tabs 03/09/24 ondansetron 4 mg disintegrating 4 mg PO Q8H PRN nausea and 03/09/24 tablet vomiting #30 tabs promethazine 25 mg tablet 25 mg PO TID PRN nausea and 03/21/24 vomiting #20 tabs Allergies Allergy/AdvReac Type Severity Reaction Status Date / Time No Known Allergies Allergy Verified 03/08/24 10:[address] [facility] Disclaimer: The information contained in this section may have been updated after the patient was seen, as this information can be updated by other users. Medical History Uterus didelphys Social History Smoking Status: Unknown if ever smoked alcohol intake: never substance use type: denies use current occupational status: unemployed Travel in the last 8 weeks: None household members: family housing: house number of children: 0 ROS Obtained: Yes Systems reviewed as appropriate & no additional complaints except as documented Physical Exam General General appearance: alert and in no apparent distress Head Head exam: atraumatic and normocephalic Eye Eye exam: Present PERRL ENT ENT exam: Present mucous membranes moist Neck Neck exam: Present normal inspection Chest Chest inspection: Present normal inspection and symmetric chest wall rise Respiratory Respiratory exam: Present normal lung sounds bilaterally; Absent respiratory distress Cardiovascular Cardiovascular exam: Present regular rate and normal rhythm Abdominal Exam Abdominal exam: Present soft and tenderness (Generalized, mild); Absent guarding or rebound Extremities Exam Extremities exam: Present normal inspection Neurological Exam Neurological exam: Present alert Psychiatric Psychiatric exam: Present normal affect Skin Skin exam: Present warm and dry Medical Decision Making Reginald Inquiry Pt receiving controlled substance: No Vital Signs: 03/21/24 01:20 03/21/24 01:27 03/21/24 02:00 Temperature 98.0 F Temperature Source Oral Pulse Rate 112 H 100 H Pulse Rate [Right Brachial] 94 H Respiratory Rate 19 16 Blood Pressure 137/96 H 139/78 Blood Pressure [Right Arm] 120/83 Blood Pressure Mean 94 Blood Pressure Mean [Right Arm] 95 Blood Pressure Source Blood Pressure Source [Right Arm] Automatic Cuff Blood Pressure Position Supine Blood Pressure Position [Right Arm] Sitting 02 Sat by Pulse Oximetry 96 100 98 Oxygen Delivery Method Room Air Room Air Room Air 03/21/24 02:30 03/21/24 03:00 03/21/24 03:30 Temperature Temperature Source Pulse Rate 100 H 98 H 92 H Pulse Rate [Right Brachial] Respiratory Rate Blood Pressure 137/96 H 145/81 H 134/78 Blood Pressure [Right Arm] Blood Pressure Mean 109 102 94 Blood Pressure Mean [Right Arm] Blood Pressure Source Blood Pressure Source [Right Arm] Blood Pressure Position Blood Pressure Position [Right Arm] 02 Sat by Pulse Oximetry 100 100 100 Oxygen Delivery Method Room Air Room Air Room Air 03/21/24 04:00 03/21/24 04:00 03/21/24 04:30 Temperature 98 F 98 F Temperature Source Oral Oral Pulse Rate 87 85 90 Pulse Rate [Right Brachial] Respiratory Rate 16 16 Blood Pressure 130/78 139/71 139/73 Blood Pressure [Right Arm] Blood Pressure Mean 98 Blood Pressure Mean [Right Arm] Blood Pressure Source Automatic Cuff Blood Pressure Source [Right Arm] Blood Pressure Position Sitting Blood Pressure Position [Right Arm] 02 Sat by Pulse Oximetry 100 100 100 Oxygen Delivery Method Room Air Room Air Room Air 03/21/24 04:30 03/21/24 05:01 03/21/24 05:30 Temperature Temperature Source Pulse Rate 95 H 98 H 96 H Pulse Rate [Right Brachial] Respiratory Rate Blood Pressure 130/75 139/73 123/81 Blood Pressure [Right Arm] Blood Pressure Mean 93 98 92 Blood Pressure Mean [Right Arm] Blood Pressure Source Blood Pressure Source [Right Arm] Blood Pressure Position Blood Pressure Position [Right Arm] 02 Sat by Pulse Oximetry 100 100 100 Oxygen Delivery Method Room Air Room Air Room Air Lab Data Lab Results 03/21/24 01:20: WBC 11.9 H, RBC 4.83, Hgb 15.0, Hct 45.1, MCV 93.2, MCH 31.1, MCHC 33.3, RDW 13.8, Plt Count 298, MPV 7.3 L, Neut % (Auto) 90.6 H, Lymph % (Auto) 7.3 L, [place] % (Auto) 1.7, Eos % (Auto) 0.3, Baso % (Auto) 0.2, Neut # (Auto) 10.8 H, Lymph # (Auto) 0.9, [place] # (Auto) 0.2, Eos # (Auto) 0.0, Baso # (Auto) 0.0, Total Counted 100, Neutrophils % (Manual) 91 H, Lymphocytes % (Manual) 9 L, Platelet Estimate Normal, RBC Morphology Normal, Sodium 138, Potassium 3.7, Chloride 104, Carbon Dioxide 20 L, Anion Gap 17.7 H, BUN 8, C reatinine 0.50 L, Estimated Creat Clear 122, Estimated GFR 156, Est GFR ( Amer) 188, Glucose 125 H, Calcium 9.9, Total Bilirubin 0.7, AST 34, ALT 37, Alkaline Phosphatase 72, Total Protein 7.9, Albumin 4.6, Globulin 3.3 H, Albumin/Globulin Ratio 1.4, Lipase 55 03/21/24 02:45: Urine Color Yellow, Urine Appearance Sl cloudy, Urine pH 8.0, Ur Specific [place] 1.025, Urine Protein Trace, Urine Glucose (UA) Negative, Urine Ketones 2+, Urine Blood Negative, Urine Nitrate Negative, Urine Bilirubin Negative, Urine Urobilinogen 0.2, Ur Leukocyte Esterase Negative, Urine RBC None, Urine WBC Occasional, Ur Squamous Epith Cells 5-10, Amorphous Sediment 1+, Urine Bacteria 1+ 03/21/24 01:20 03/21/24 01:20 Orders (Tests/Meds): ED MEDICATIONS Discontinued Medications Generic Name Dose Route Start Last Admin Trade Name Freq PRN Reason Stop Dose Admin Acetaminophen 1,000 mg 03/21/24 01:38 03/21/24 01:48 Acetaminophen 1,000mg/100ml Vial IV 03/21/24 01:39 1,000 mg ONCE ONE Administration Lactated Ringer's 1,000 mls @ 999 mls/hr 03/21/24 01:32 03/21/24 01:48 Lactated Ringer's 1000 Ml Bag IV 03/21/24 02:32 999 mls/hr .Q1H1M ONE Administration Lactated Ringer's 1,000 mls @ 999 mls/hr 03/21/24 03:11 03/21/24 03:16 Lactated Ringer's 1000 Ml Bag IV 03/21/24 04:11 999 mls/hr .Q1H1M ONE Administration Metoclopramide HCl 10 mg 03/21/24 01:34 03/21/24 01:48 Metoclopramide Hcl 10mg/2ml Vial IVP 03/21/24 01:35 10 mg ONCE ONE Administration Promethazine HCl 25 mg 03/21/24 02:30 03/21/24 02:31 Promethazine Hcl 25mg/Ml 1ml Vial IV 03/21/24 02:31 25 mg ONCE ONE Administration Sodium Chloride 25 ml 03/21/24 02:30 03/21/24 02:31 Sodium Chloride 0.9% 25ml Bag IV 03/21/24 02:31 25 ml ONCE ONE Administration ORDERS Category Date Time Status CBC w/Auto Diff [Complete Blood Count Auto Diff] Stat Lab 03/21/24 01:20 Completed CMP [Comprehensive Metabolic Panel] Stat Lab 03/21/24 01:20 Completed Lipase Stat Lab 03/21/24 01:20 Completed UA [Urinalysis and Microscopic] Stat Lab 03/21/24 02:45 Completed Medical Decision Narrative: In summary patient is a 23-year-old female with past medical history described above presents emergency department for evaluation of generalized abdominal pain, nausea, vomiting in the setting of previous cannabinoid hyperemesis syndrome and not currently smoking, multiple visits for vomiting and weight loss during . Patient is hemodynamically stable nontoxic-appearing upon arrival, afebrile, mild generalized tenderness. Normal heart tones present. Differential includes hyperemesis gravidarum, among others. Initial workup will be conducted with hematologic labs, urinalysis. Initial inventions include crystalloid bolus, metoclopramide, IV Tylenol. Given that patient has a nonfocal exam and is mildly generally tender, as well as the fact that this is similar presentation to before initial imaging will be deferred and patient will undergo observation. Workup reviewed by me, hematologic labs have no significant leukocytosis or anemia. Anion gap 17.7, no MARK. Urinalysis has asymptomatic bacteriuria however is contaminated with squamous cells. Upon repeat evaluation patient had persistent vomiting for which Phenergan was administered. Patient underwent p.o. trial and was unsuccessful. Patient follows with OB at [facility] but has been admitted here previously. She has hyperemesis gravidarum that has failed outpatient Bonjesta and Zofran and today was refractory to IV metoclopramide and Phenergan. Given inability to tolerate p.o. in the setting of hyperemesis gravidarum with ketonuria and elevated anion gap patient requires inpatient management at this time. The case was discussed with Dr. Howe who will admit the patient to his service for continued evaluation at this time. Critical Care Critical Care Time Critical Care Time: No
[2024-03-21 01:48] LABS: Chloride 104 mmol/L (98-107); Sodium 138 mmol/L (136-145)
[2024-03-21] MEDS: ACETAMINOPHEN 1,000MG/100ML VIAL 1000 MG IV (01:48)
[2024-03-21] MEDS: LACTATED RINGERS 1000ML 1,000 ML 999 ML IV ×2 (01:48→03:16)
[2024-03-21] MEDS: METOCLOPRAMIDE HCL 10MG/2ML VIAL 10 MG IVP (01:48)
[2024-03-21 01:49] LABS: MANUAL DIFFERENTIAL MANUAL DIFFERENTIAL (MANUAL DIFF); Potassium 3.7 mmoL/L (3.5-5.1)
[2024-03-21 01:51] LABS: Alanine Aminotransferase 37 U/L (12-78); Alkaline Phosphatase 72 U/L (38-126); Anion Gap 17.7 mEq/L (5-15); Aspartate Amino Transferase 34 U/L (14-36); Bilirubin,Total 0.7 mg/dl (0.2-1.3); Blood Urea Nitrogen 8 mg/dl (7-17); Calcium 9.9 mg/dl (8.4-10.2); Carbon Dioxide 20 mmol/L (22.0-30.0); Creatinine Clearance Estimated 122 mL/min (50-200); Estimated Glomerular Filt Rate 156 ml/min (>60); GFR (African American) 188 ML/MIN (>60); Glucose 125 mg/dl (74-100); Lipase 55 U/L (23-300)
[2024-03-21 01:52] LABS: Albumin Level 4.6 g/dl (3.5-5.0); Albumin/Globulin Ratio 1.4 (1.1-1.8); Globulin 3.3 g/dL (1.3-3.2); Total Protein,Serum 7.9 g/dl (6.3-8.2)
[2024-03-21 02:24] LABS: Lymphocytes % 9 % (10-50); Neutrophils % 91 % (42-76); Platelet Estimate Normal; RBC Morphology Normal; Total Cells Counted 100
[2024-03-21] MEDS: PROMETHAZINE HCL 25MG/ML 1ML VIAL 25 MG IV ×2 (02:31→08:13)
[2024-03-21] MEDS: SODIUM CHLORIDE 0.9% 25ML BAG 25 ML IV ×3 (02:31→20:10)
[2024-03-21 02:52] LABS: Appearance,Urine SL CLOUDY (Clear); Bilirubin,Urine Negative (Negative); Blood, Urine Negative (Negative); Color,Urine YELLOW (Yellow); Glucose,Urine (UA) Negative (Negative); Ketones,Urine 2+ (Negative); Leukocyte Esterase,Urine Negative (Negative); Microscopic, Urine URINE MICROSCOPIC (MICROSCOPIC); Nitrate,Urine Negative (Negative); Protein,Urine TRACE (Negative); Specific Gravity, Urine 1.025 (1.005-1.030); Urobilinogen,Urine 0.2 EU/dl (0.2)
[2024-03-21 03:08] LABS: Amorphous Sediment,Urine 1+ /lpf; Bacteria,Urine 1+ /lpf; WBC,Urine Occasional #/hpf (0-3)
--- NOTE | 2024-03-21 04:22 | PC.NURSE ---
Pt given water and crackers for PO challenge
--- NOTE | 2024-03-21 05:09 | PC.NURSE ---
Pt 2nd Liter fluids finished, states she is nauseous but no active vomiting.
--- NOTE | 2024-03-21 05:13 | PC.NURSE ---
Dr Ritter at bedside, pt vomiting. Looking to transfer pt to [facility]
--- NOTE | 2024-03-21 05:17 | PC.NURSE ---
call placed to [facility] call center. discussed possible transfer of this patient with healthcare representative. states dr hanna is [employer] operator for hospital medicine and she will page him to speak with us re this issue
--- NOTE | 2024-03-21 05:22 | PC.NURSE ---
spoke with the access center, ton, continuing to await on provider
--- NOTE | 2024-03-21 05:47 | PC.NURSE ---
contacted [facility] for bed assignment. ob nurse at bedside gave assignment for 279. pt notified per md of admit. dr hathaway, hyperemesis gravidium
--- NOTE | 2024-03-21 06:00 | PC.NURSE ---
Report given to LUCIAN Harrison
--- NOTE | 2024-03-21 07:00 | PC.NURSE ---
Report received from LUCIAN Diana.
--- NOTE | 2024-03-21 07:12 | PC.NURSE ---
Pt up taking a shower at this time.
[2024-03-21 07:20] LABS: Benzodiazepines Screen,Urine Negative ng/ml (<200)
[2024-03-21 07:21] LABS: Amphetamine/Metha Screen,Urine Negative ng/ml (<1000); Barbiturates Screen,Urine Negative ng/ml (<200)
[2024-03-21 07:22] LABS: Cannabinoid Screen,Urine Positive ng/ml (<50)
[2024-03-21 07:23] LABS: Cocaine Screen,Urine Negative ng/ml (<300); Methadone Screen,Urine Negative ng/ml (<300)
[2024-03-21 07:24] LABS: Opiate Screen,Urine Negative ng/ml (<300)
[2024-03-21 07:25] LABS: Phencyclidine Screen,Urine Negative ng/ml (<25)
[2024-03-21] MEDS: LACTATED RINGERS 1000ML 1,000 ML 80 ML IV ×2 (08:12→16:51)
--- NOTE | 2024-03-21 08:25 | HMH.PHAINT1 ---
Pharmacy Intervention Comments: MEDICATION RECONCILIATION COMPLETED ON PATIENT USING EXTERNAL FILL HISTORY FROM PHARMACY AND DISCHARGE SUMMARY FROM PREVIOUS ADMISSION. -YULI VARGHESE, ANASTASIAD
[2024-03-21] MEDS: DOXYLAMINE 10MG/PYRIDOXINE 10MG TABLET 1 TAB PO ×2 (08:42→13:49)
[2024-03-21] MEDS: MVI, ADULT NO.1 WITH VIT K 10 ML, THIAMINE HCL 100 MG, MAGNESIUM SULFATE 2 GM in LACTAT... 125 ML IV (08:42)
--- NOTE | 2024-03-21 10:08 | EXP.HP ---
History of Present Illness *Admission Date: 03/21/24 *Reason for visit:: Nausea vomiting in , history of hyperemesis *History of present illness: Patient is a 23-year-old female G1, P0 EGA 15 weeks who presents emergency department for evaluation of vomiting. 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 Patient has had vomiting since 7 PM today that is worse than normal. She has had vomiting throughout her and has been intermittently responsive to metoclopramide, today it is refractory to Zofran. Patient has generalized abdominal pain, has had previous cholecystectomy. Patient has history of uterine dialysis, previous cannabinoid hyperemesis not currently smoking marijuana. She has had a 20 pound weight loss throughout the course. She is followed by Dr. Neal with [employer] with [employer] officer. Per chart review patient was admitted on 03/05 with similar symptoms and was subsequently transitioned to oral antiemetics and discharged home. [facility] Disclaimer: The information contained in this section may have been updated after the patient was seen, as this information can be updated by other users. Medical History Uterus didelphys Social History Smoking Status: Unknown if ever smoked alcohol intake: never substance use type: denies use current occupational status: unemployed Travel in the last 8 weeks: None household members: family housing: house number of children: 0 Review of Systems Review of Systems Review of systems:: pertinent systems reviewed and negative unless documented below Meds Home Medications and Allergies Home Medications Medication Instructions Recorded Confirmed Type doxylamine 20 mg-pyridoxine 20 mg 1 tab PO Q12H 03/08/24 03/21/24 History tablet,immediate and delayed release (Bonjesta) famotidine 20 mg tablet 20 mg PO BID 03/08/24 03/21/24 History potassium chloride 10 mEq 10 meq PO BID 03/08/24 03/21/24 History tablet,extended release metoclopramide HCl 10 mg tablet 10 mg PO Q6HP PRN Nausea #60 tabs 03/09/24 03/21/24 Rx ondansetron 4 mg disintegrating 4 mg PO Q8HP PRN nausea and 03/21/24 03/21/24 History tablet vomiting promethazine 25 mg tablet 25 mg PO TID PRN nausea and 03/21/24 Rx vomiting #20 tabs New Prescriptions to Start Prescriptions: promethazine Emmanuel Ritter Allergies Allergy/AdvReac Type Severity Reaction Status Date / Time No Known Allergies Allergy Verified 03/08/24 10:38 Exam Data for Last 24 hours Vital signs and Labs for Last 24 Hours: Temp Pulse Resp BP Pulse Ox O2 Del Method 98 F 89 17 134/75 100 Room Air 03/21/24 06:11 03/21/24 06:11 03/21/24 06:11 03/21/24 06:11 03/21/24 06:11 03/21/24 06:11 Laboratory Results - last 24 hr 03/21/24 01:20: WBC 11.9 H, RBC 4.83, Hgb 15.0, Hct 45.1, MCV 93.2, MCH 31.1, MCHC 33.3, RDW 13.8, Plt Count 298, MPV 7.3 L, Neut % (Auto) 90.6 H, Lymph % (Auto) 7.3 L, [place] % (Auto) 1.7, Eos % (Auto) 0.3, Baso % (Auto) 0.2, Neut # (Auto) 10.8 H, Lymph # (Auto) 0.9, [place] # (Auto) 0.2, Eos # (Auto) 0.0, Baso # (Auto) 0.0, Total Counted 100, Neutrophils % (Manual) 91 H, Lymphocytes % (Manual) 9 L, Platelet Estimate Normal, RBC Morphology Normal, Sodium 138, Potassium 3.7, Chloride 104, Carbon Dioxide 20 L, Anion Gap 17.7 H, BUN 8, Creatinine 0.50 L, Estimated Creat Clear 122, Estimated GFR 156, Est GFR ( Amer) 188, Glucose 125 H, Calcium 9.9, Total Bilirubin 0.7, AST 34, ALT 37, Alkaline Phosphatase 72, Total Protein 7.9, Albumin 4.6, Globulin 3.3 H, Albumin/Globulin Ratio 1.4, Lipase 55 03/21/24 02:45: Urine Color Yellow, Urine Appearance Sl cloudy, Urine pH 8.0, Ur Specific [place] 1.025, Urine Protein Trace, Urine Glucose (UA) Negative, Urine Ketones 2+, Urine Blood Negative, Urine Nitrate Negative, Urine Bilirubin Negative, Urine Urobilinogen 0.2, Ur Leukocyte Esterase Negative, Urine RBC None, Urine WBC Occasional, Ur Squamous Epith Cells 5-10, Amorphous Sediment 1+, Urine Bacteria 1+, Urine Opiates Screen Negative, Urine Methadone Screen Negative, Ur Barbituates Screen Negative, Ur Phencyclidine Scrn Negative, Ur Amphetamines Screen Negative, U Benzodiazepines Scrn Negative, Urine Cocaine Screen Negative, U Marijuana (THC) Screen Positive H I & O for Last 24 hours: Intake & Output 03/18/24 03/19/24 03/20/24 03/21/24 11:59 11:59 11:59 11:59 Weight 95 lb 15.828 oz Constitutional Constitutional: no acute distress *Routine HEENT Exam Head: Present normocephalic Eye: Present EOMI and PERRL ENT: Present mucous membranes moist *Routine Neck Exam Neck: Present supple; Absent lymphadenopathy *Routine Respiratory Exam Respiratory: Present normal respiratory effort; Absent accessory muscle use *Routine Cardiovascular Exam Cardiovascular: Present RRR *Routine Abdominal Exam Abdominal: Present soft and normoactive bowel sounds; Absent tenderness *Routine Rectal Exam Rectal:: deferred *Routine Genitalia Exam Genitalia:: deferred *Routine Extremities Exam Extremities: Absent cyanosis, clubbing or edema *Routine Skin Exam Skin: Present warm; Absent rash *Routine Neurological Exam Neurological: Present alert and oriented X3 Assessment and Plan *Assessment and plan (1) Hyperemesis gravidarum: Status: Acute Category: Medical Code(s): O21.0 - Mild hyperemesis gravidarum (2) Nausea and vomiting during prior to 22 weeks gestation: Status: Acute Category: Medical Code(s): O21.9 - Vomiting of , unspecified (3) Uterus didelphys: Status: Acute Category: Medical Code(s): Q51.28 - Other and unspecified doubling of uterus Plan She is admitted for nausea vomiting. We will have her take Zofran and Phenergan scheduled. We have also started her on Diclegis. She has a rally pack running. We will see how she does over the next 24 to 48 hours. I counseled her again about quitting smoking marijuana. Her levels today are fairly high. She says she has not smoked marijuana in a month.
[2024-03-21] MEDS: SODIUM CHLORIDE 0.9% 10ML FLUSH SYRINGE 10 ML IV (10:49)
[2024-03-21] MEDS: ONDANSETRON 4MG/2ML VIAL 4 MG IV ×3 (10:49→23:00)
[2024-03-21] MEDS: PROMETHAZINE HCL 25MG/ML 1ML VIAL 12.5 MG IV ×2 (13:49→20:10)
[2024-03-21] MEDS: DOXYLAMINE 10MG/PYRIDOXINE 10MG TABLET 2 TAB PO (20:10)
[2024-03-22] MEDS: PROMETHAZINE HCL 25MG/ML 1ML VIAL 12.5 MG IV (02:01)
[2024-03-22] MEDS: SODIUM CHLORIDE 0.9% 25ML BAG 25 ML IV (02:01)
[2024-03-22] MEDS: PROCHLORPERAZINE 25MG SUPP 25 MG RC (02:27)
[2024-03-22 04:15] VITALS: BP 103/60; PULSE 85; RESP 17; TEMP 36.8; O2SAT 96
[2024-03-22] MEDS: ONDANSETRON 4MG/2ML VIAL 4 MG IV ×5 (04:31→22:58)
[2024-03-22 08:00] VITALS: BP 137/89; PULSE 83; RESP 18; TEMP 36.9; O2SAT 100
[2024-03-22] MEDS: MVI, ADULT NO.1 WITH VIT K 10 ML, THIAMINE HCL 100 MG, MAGNESIUM SULFATE 2 GM in LACTAT... 125 ML IV (08:51)
[2024-03-22] MEDS: DOXYLAMINE 10MG/PYRIDOXINE 10MG TABLET 1 TAB PO ×2 (08:59→13:51)
[2024-03-22] MEDS: BUTORPHANOL TARTRATE 2 MG/ML VIAL 1 MG IV ×2 (11:24→23:27)
[2024-03-22] MEDS: SCOPOLAMINE 1.5MG/72HRS PATCH 1 EACH TD (11:24)
--- NOTE | 2024-03-22 11:41 | P.PN_ITS ---
Subjective *Date: 03/22/24 *Time: 11:41 Interval history: She seemed to be doing well overnight but then this morning woke up with severe nausea and vomiting. She complained of lower abdominal pain as well. She was having dry heaves and I suspect that she had pulled some muscles in her a bdominal wall. She has been taking Compazine and Zofran scheduled. Medical Exam Vital signs and Labs for Last 24 Hours: Vital Signs Temp Pulse Resp BP Pulse Ox O2 Del Method 03/22/24 08:00 98.4 F 83 18 137/89 100 Room Air 03/22/24 04:15 98.2 F 85 17 103/60 L 96 Room Air 03/21/24 20:05 98.4 F 84 17 132/85 98 Room Air 03/21/24 17:06 98.3 F 79 18 130/83 I & O for Labs for Last 24 Hours: Intake & Output 03/19/24 03/20/24 03/21/24 03/22/24 11:59 11:59 11:59 11:59 Weight 95 lb 15.828 oz Head: Present atraumatic Neck: Present normal inspection Respiratory: Absent accessory muscle use Assessment and Plan *Assessment and plan (1) Hyperemesis gravidarum: Status: Acute Category: Medical Code(s): O21.0 - Mild hyperemesis gravidarum (2) Nausea and vomiting during prior to 22 weeks gestation: Status: Acute Category: Medical Code(s): O21.9 - Vomiting of , unspecified (3) Vomiting: Status: Acute Qualifiers: Vomiting type: bilious vomiting Nausea presence: with nausea Qualified Code(s): R11.14 - Bilious vomiting Category: Medical Code(s): R11.10 - Vomiting, unspecified (4) Uterus didelphys: Status: Acute Category: Medical Code(s): Q51.28 - Other and unspecified doubling of uterus Plan She continues to have nausea and vomiting despite regular use of medication. We are giving her daily rally pack. Since she is now 15 weeks we will go ahead and start a scopolamine patch and see how this works. She did have some abdominal pain and we gave her 1 mg of Stadol. This seemed to help with her pain and she is no longer vomiting. Will see how she does with the scopolamine patch. We will plan to continue with hospitalization until she can begin eating again.
[2024-03-22 15:57] VITALS: BP 110/60; PULSE 83; RESP 20; TEMP 36.7; O2SAT 100
[2024-03-22] MEDS: LACTATED RINGERS 1000ML 1,000 ML 80 ML IV (17:35)
--- OUTSIDE RECORDS SUMMARY | 2024-03-22 17:46 | XMS_ITS | Continuity of Care Document ---
Author Name Unknown Address [address] [place], [place] [id number] Organization [facility] Phone Care Team Providers Care Bag Machine Adjuster Name Role Phone TAYLOR SRIVASTAVA Primary Care AMEYA PANDYA Admitting AMEYA PANDYA Unavailable AMEYA PANDYA Primary Attending ALLERGIES AND ADVERSE REACTIONS ALLERGIES AND ADVERSE REACTIONS Code System Allergy Substance Adverse Reaction Date Reaction (Severity) Comment Status Reported By Updated By No Known Allergies [email or web address] on February 22, 2024 11:30:22 PM UT RESULTS Patient: KATHERIN SANTAMARIA Date of : 2000 9 LABORATORY RESULTS ORDER 100: CBC W/ AUTO DIFF (LOINC: 54754-8) ORDER DATE: February 22, 2024 11:35:00 PM UT Specimen Source: Whole Blood Specimen Type: Whole blood s ample PERFORMING LAB: [address] [id number] Result Comment: Final Result Date: February 23, 2024 12:09:00 AM UT (TECH: LM) LOINC TEST FLAG RESULT REFERENCE RANGE UPDA LUCIAN BY 6690-2 Leukocytes [#/volume ] in Blood by Automated count H 18.82 K/uL 4.5 K/uL - 11.5 K/uL February 23, 2024 12:09:00 AM UTC (TECH: LM) 789-8 Erythrocytes [#/volume] in Blood by Automated count N 4.67 M/uL 4.0 M/uL - 5.4 M/uL February 23, 2024 12:09:00 AM UTC (TECH: LM) 718-7 Hemoglobin [Mass/volume] in Blood N 14.1 g/dL 12.0 g/dL - 15.0 g/dL February 23, 2024 12:09:00 AM UTC (TECH: LM) 4544-3 Hematocrit [Volume Fraction] of Blood by Automated count N 40.7 % 35 % - 49 % February 23, 2024 12:09:00 AM UTC (TECH: LM) 787-2 Erythrocyte mean corpuscular volume [Entitic volume] by Automated count N 87.2 fL 80.0 fL - 100.0 fL February 23, 2024 12:09:00 AM UTC (TECH: LM) 785-6 Erythrocyte mean corpuscular hemoglobin [Entitic mass] by Automated count N 30.2 pg 26.0 pg - 32.0 pg February 23, 2024 12:09:00 AM UTC (TECH: LM) 786-4 Erythrocyte mean corpuscular hemoglobin concentration [Mass/volume] by Automated count N 34.6 g/dL 32.0 g/dL - 36.0 g/dL February 23, 2024 12:09:00 AM UTC (TECH: LM) 788-0 Erythrocyte distribution width [Ratio] by Automated count N 12.8 % 11.5 % - 14.5 % February 23, 2024 12:09:00 AM UTC (TECH: LM) 777-3 Platelets [#/volume] in Blood by Automated count N 324 K/uL 142 K/uL - 424 K/uL February 23, 2024 12:09:00 AM UTC (TECH: LM) 30981-3 Platelet mean volume [Entitic volume] in Blood by Automated count N 9.4 fL 6.8 fL - 10.2 fL February 23, 2024 12:09:00 AM UTC (TECH: LM) 46574-0 Neutrophils/100 leukocytes in Blood H 89.2 % 50 % - 70 % February 22 12:09:00 AM UTC (TECH: LM) 65671-4 Lymphocytes/100 leukocytes in Blood L 5.5 % 18.0 % - 42.0 % February 22 12:09:00 AM UTC (TECH: LM) 60995-1 Monocytes/100 leukocytes in Blood N 4.6 % 2.0 % - 11.0 % February 22 12:09:00 AM UTC (TECH: LM) 72534-6 Eosinophils/100 leukocytes in Blood L 0.1 % 1.0 % - 3.0 % February 22 12:09:00 AM UTC (TECH: LM) 17210-4 Basophils/100 leukocytes in Blood N 0.2 % 0.0 % - 2.0 % February 22 12:09:00 AM UTC (TECH: LM) 84994-6 Immature granulocytes/100 leukocytes in Blood by Automated count N 0.4 % 0.0 % - 0.8 % February 22 12:09:00 AM UTC (TECH: LM) 11192-2 Nucleated cells [#/volume] in Blood N 0.0 % February 22 12:09:00 AM UTC (TECH: LM) 00152-5 Neutrophils [#/volume] in Blood N 16.80 K/uL February 22 12:09:00 AM UTC (TECH: LM) 87718-4 Lymphocytes [#/volume] in Blood N 1.03 K/uL February 22 12::00 AM UTC (TECH: LM) 35210-8 Monocytes [#/volume] in Blood N 0.86 K/uL February 23, 2024 12:09:00 AM UTC (TECH: LM) 01697-5 Eosinophils [#/volume] in Blood N 0.02 K/uL February 22 12:09:00 AM UTC (TECH: LM) 704-7 Basophils [#/volume] in Blood by Automated count N 0.03 K/uL February 23, 2024 12:09:00 AM UTC (TECH: LM) 81490-2 Immature granulocyte s [#/volume] in Blood N 0.08 K/uL February 22 12:09:00 AM UTC (TECH: LM) 77866-6 Nucleated cells [#/volume] in Blood N 0.00 k/uL February 22 12:09:00 AM UTC (TECH: LM) 57114-5 Manual differential comment [interpretation] in Blood Narrative N YES February 23, 2024 12:09:00 AM UTC (TECH: LM) 69470-4 Neutrophils/100 leukocytes in Blood H 89 % 50 % - 70 % February 22 12:09:00 AM UTC (TECH: LM) 93036-2 Neutrophils.band form/100 leukocytes in Blood N 1 % 0 % - 5 % February 23, 2024 12:09:00 AM UT (TECH: LM) 66553-9 Lymphocytes/100 leukocytes in Blood L 8 % 18.0 % - 42.0 % February 22 12:09:00 AM [facility] (TECH: LM) 73707-5 Monocytes/100 leukocytes in Blood N 2 % 0.0 % - 12.0 % February 22 12:09:00 AM UT (TECH: LM) ORDER 200: COMP METABOLIC PA FLORES (LOINC: 63851-2) ORDER DATE: February 22, 2024 11:35:00 PM UT Specimen Source: Serum/Plasm a Specimen Type: Acellular blo od (serum or plasma) specimen PERFORMING LAB: [address] [id number] Result Comment: Final Result Date: February 23, 2024 12:10:00 AM [facility] (TECH: SLC) LOINC TEST FLAG RESULT REFERENCE RANGE UPDA LUCIAN BY 2951-2 Sodium [Moles/volume ] in Serum or Plasma N 138 mmol/L 137 mmol/L - 147 mmol/L February 23, 2024 12:10:00 AM UT (TECH: SLC) 2823-3 Potassium [Moles/volume] in Serum or Plasma N 3.9 mmol/L 3.5 mmol/L - 5.1 mmol/L February 23, 2024 12:10:00 AM [facility] (TECH: SLC) 2075-0 Chloride [Moles/volu me] in Serum or Plasma N 105 mmol/L 98 mmol/L - 110 mmol/L February 23, 2024 12:10:00 AM UT (TECH: SLC) 8-9 Carbon dioxide, tota l [Moles/volume] in Serum or Plasma L 16 mmol/L 21 mmol/L - 30 mmol/L February 23, 2024 12:10:00 AM UT (TECH: SLC) 17097-3 Anion gap in Serum o r Plasma H 17 mmol/L 6 mmol/L - 14 mmol/L February 23, 2024 12:10:00 AM [facility] (TECH: SLC) 2345-7 Glucose [Mass/volume ] in Serum or Plasma N 94 mg/dL 70 mg/dL - 115 mg/dL February 23, 2024 12:10:00 AM [facility] ([employer]) 3094-0 Urea nitrogen [Mass/volume] in Serum or Plasma N 8 mg/dL 7 mg/dL - 17 mg/dL February 23, 2024 12:10:00 AM [facility] ([employer]) 2160-0 Creatinine [Mass/volume] in Serum or Plasma N 0.6 mg/dL 0.5 mg/dL - 1.5 mg/dL February 23, 2024 12:10:00 AM [facility] ([employer]) 3097-3 Urea nitrogen/Creatinine [Mass Ratio] in Serum or Plasma N 13 RATIO 10 RATIO - 20 RATIO February 23, 2024 12:10:00 AM [facility] ([employer]) 69338-0 Glomerular filtratio n rate/1.73 sq M.predicted N 134 mL/min >60 February 23, 2024 12:10:00 AM [facility] ([employer]) 79475-2 Osmolality of Serum or Plasma by calculation N 285 mOsmol/Kg 275 mOsmol/Kg - 301 mOsmol/Kg February 23, 2024 12:10:00 AM [facility] ([employer]) 2885-2 Protein [Mass/volume ] in Serum or Plasma H 8.5 g/dL 6.2 g/dL - 8.2 g/dL February 23, 2024 12:10:00 AM [facility] ([employer]) 1751-7 Albumin [Mass/volume ] in Serum or Plasma H 5.3 g/dL 3.5 g/dL - 5.0 g/dL February 23, 2024 12:10:00 AM [facility] ([employer]) 98601-6 Calcium [Mass/volume ] in Serum or Plasma N 10.0 mg/dL 8.5 mg/dL - 10.8 mg/dL February 23, 2024 12:10:00 AM [facility] ([employer]) 1975-2 Bilirubin.total [Mass/volume] in Serum or Plasma H 1.7 mg/dL 0.2 mg/dL - 1.3 mg/dL February 23, 2024 12:10:00 AM [facility] ([employer]) 1920-8 Aspartate aminotransferase [Enzymatic activity/volume] in Serum or Plasma N 26 IU/L 14 IU/L - 36 IU/L February 23, 2024 12:10:00 AM [facility] ([employer]) 1742-6 Alanine aminotransferase [Enzymatic activity/volume] in Serum or Plasma N 18 IU/L 0 IU/L - 35 IU/L February 23, 2024 12:10:00 AM UTC (TECH: [employer]) 87493-1 Alkaline phosphatase.bile [Enzymatic activity/volume] in Serum or Plasma N 68 IU/L 38 IU/L - 126 IU/L February 23, 2024 12:10:00 AM UTC (TECH: [employer]) ORDER 300: MAGNESIUM (LOINC: 47926-3) ORDER DATE: February 22, 2024 11:35:00 PM UTC Specimen Source: Serum/Plasm a Specimen Type: Acellular blo od (serum or plasma) specimen PERFORMING LAB: [address] [id number] Result Comment: Final Result Date: February 23, 2024 12:10:00 AM UT (TECH: [employer]) LOINC TEST FLAG RESULT [place] [address]-5 Magnesium [Mass/volume] in Serum or Plasma N 2.0 mg/dL 1.6 mg/dL - 2.4 mg/dL February 23, 2024 12:10:00 AM UTC (TECH: [employer]) ORDER 400: UDS OXYCODONE SUB OXONE (LOINC: 05631-2) ORDER DATE: February 22, 2024 11:35:00 PM UTC Specimen Source: Urine Specimen Type: Urine specime n PERFORMING LAB: [address] [id number] Result Comment: Final Result Date: February 23, 2024 12:21:00 AM UT (TECH: [employer]) LOINC TEST FLAG [place] [address]-9 Amphetamine [Presenc e] in Urine by Screen method N NEGATIVE NEGATIVE February 23, 2024 12:21:00 AM UTC (TECH: [employer]) 20510-3 Barbiturates [Presen ce] in Urine by Screen method N NEGATIVE NEGATIVE February 23, 2024 12:21:00 AM UTC (TECH: [employer]) 08137-9 Benzodiazepines [Pre sence] in Urine by Screen method N NEGATIVE NEGATIVE February 23, 2024 12:21:00 AM UTC (TECH: [employer]) 18377-8 Tetrahydrocannabinol [Presence] in Urine by Screen method POSITIVE NEGATIVE February 23, 2024 12:21:00 AM UTC (TECH: [employer]) 81115-7 Methadone [Presence] in Urine by Screen method N NEGATIVE NEGATIVE February 23, 2024 12:21:00 AM UTC (TECH: SLC) 77455-6 Opiates [Presence] i n Urine by Screen method N NEGATIVE NEGATIVE February 23, 2024 12:21:00 AM UTC (TECH: SLC) 29066-3 Phencyclidine [Prese nce] in Urine by Screen method N NEGATIVE NEGATIVE February 23, 2024 12:21:00 AM UTC (TECH: SLC) 54795-4 Cocaine [Presence] i n Urine by Screen method N NEGATIVE NEGATIVE February 23, 2024 12:21:00 AM UTC (TECH: SLC) 22051-7 Oxycodone [Presence] in Urine N NEGATIVE NEGATIVE February 23, 2024 12:21:00 AM UTC (TECH: SLC) 78388-0 Internal control result N PASS PASS February 23, 2024 12:21:00 AM UTC (TECH: SLC) 3414-0 Buprenorphine [Prese nce] in Urine N NEGATIVE NEGATIVE February 23, 2024 12:21:00 AM UTC (TECH: SLC) 78707-5 Internal control result N PASS PASS February 23, 2024 12:21:00 AM UTC (TECH: SLC) ORDER 500: UA WITH CULTURE I F INDICATED (LOINC: 14475-7) ORDER DATE: February 22, 2024 11:35:00 PM UTC Specimen Source: Urine Specimen Type: Urine specime n PERFORMING LAB: [address] [id number] Result Comment: Final Result Date: February 23, 2024 12:01:00 AM UTC (TECH: RP1) LOINC TEST FLAG RESULT REFERENCE RANGE UPDA LUCIAN BY 5778-6 Color of Urine N YELLOW YELLOW February 23, 2024 12:01:00 AM UTC (TECH: RP1) 5767-9 Appearance of Urine N CLOUDY CLEAR February 23, 2024 12:01:00 AM UTC (TECH: RP1) 5792-7 Glucose [Mass/volume ] in Urine by Test strip N NEGATIVE NEGATIVE February 22 12:01:00 AM UTC (TECH: RP1) 62042-6 Bilirubin.total [Mass/volume] in Urine by Automated test strip N NEGATIVE NEGATIVE January 12:01:00 AM UTC (TECH: RP1) 5797-6 Ketones [Mass/volume ] in Urine by Test strip N 3+ NEGATIVE February 22 12:01:00 AM UTC (TECH: RP1) 2965-2 Specific gravity of Urine H 1.030 1.005 - 1.025 February 23, 2024 12:01:00 AM UTC (TECH: RP1) 11039-8 Erythrocytes [#/volu me] in Urine by Automated test strip N NEGATIVE NEGATIVE February 23, 2024 12:01:00 AM UTC (TECH: RP1) 71496-1 pH of Urine by Autom ated test strip N 6.0 5.0 - 8.0 February 23, 2024 12:01:00 AM UTC (TECH: RP1) 40736-2 Protein [Presence] i n Urine by Test strip N 2+ NEGATIVE February 22 12:01:00 AM UTC (TECH: RP1) 90444-7 Urobilinogen [Mass/volume] in Urine by Automated test strip N 0.2 E.U./dL 0.0 - 0.2 January 12:01:00 AM UTC (TECH: RP1) 28766-2 Nitrate [Presence] i n Urine N NEGATIVE NEGATIVE February 23, 2024 12:01:00 AM UTC (TECH: RP1) 76274-9 Leukocytes [#/volume ] in Urine by Test strip N NEGATIVE NEGATIVE February 22 12:01:00 AM UTC (TECH: RP1) 20802-8 Other elements in Ur ine sediment N NOT INDICATED February 23, 2024 12:01:00 AM UTC (TECH: RP1) 98285-9 Microscopic exam [interpretation] of Urine by Cytology N YES February 23, 2024 12:01:00 AM UTC (TECH: RP1) 72874-4 Erythrocytes [#/area ] in Urine sediment by Microscopy high power field N NONE SEEN NONE SEEN/HPF February 23, 2024 12:01:00 AM UTC (TECH: RP1) 5821-4 Leukocytes [#/area] in Urine sediment by Microscopy high power field N NONE SEEN NONE SEEN/HPF February 23, 2024 12:01:00 AM UTC (TECH: RP1) 40761-2 Epithelial cells.squamous [#/area] in Urine sediment by Microscopy high power field N 2-5 NONE SEEN February 23, 2024 12:01:00 AM UTC (TECH: RP1) 5769-5 Bacteria [#/area] in Urine sediment by Microscopy high power field N TRACE NEGATIVE February 23, 2024 12:01:00 AM UTC (TECH: RP1) 35998-0 Mucus [#/area] in Ur ine sediment by Microscopy low power field N 1+ NONE SEEN February 23, 2024 12:01:00 AM UTC (TECH: RP1) LABORATORY NARRATIVE RESULTS Information is not available RADIOLOGY RESULTS Information is not available PATHOLOGY NARRATIVE RESULTS Information is not available MICROBIOLOGY RESULTS No Micro Labs/Results Exist for Patient BLOOD ADMIN RESULTS Information is not available MEDICATIONS HOME MEDICATIONS Status RXNORM NDC Medication Dose Route Frequency Dates Comments Reported By Updated By Drug Treatment Unknown DISCHARGE MEDICATIONS Status RXNORM NDC Medication Dose Route Frequency Dates Comments Physician Updated By No Discharge Medication Info rmation Available INPATIENT MEDICATIONS Status RXNORM NDC Medication Dose Route Frequency Rat e Quantity Dates Comments Physician Updated By Discont inued [id number] 3450 204 metoclopram yanci (REGLAN) 10 MG/2 ML SOLN 10.0 MG IV PUSH ONE TIME ONLY Start: February 22, 2024 11:42: 00 PM UTC End: February 22, 2024 11:42: 00 PM UT MUMTAZ HOU MD INTERFAC ED on February 22, 2024 11:40:00 PM UT Discont inued [id number] 0612 8092 355 pantoprazol e (PROTONIX) 40 MG SOLR 40.0 MG IV PUSH ONE TIME ONLY Start: February 23, 2024 12:32: 00 AM UTC End: February 23, 2024 12:32: 00 AM UT MUMTAZ HOU MD INTERFAC ED on February 23, 2024 12:31:00 AM UT Discont inued [id number] 6519 5613 005 ondansetron (ZOFRAN) INJ 4 MG/2 ML SOLN 4.0 MG IV PUSH ONE TIME ONLY Start: February 23, 2024 1:25:0 0 AM UTC End: February 23, 2024 1:25:0 0 AM UT MUMTAZ HOU MD INTERFAC ED on February 23, 2024 1:23:00 AM UT SOCIAL HISTORY SOCIAL HISTORY SNOMED-CT Social History Element Description Effective Dates Offered Cessation Comment UpdatedBy [id number] Smoking Status Unknown If Ever Smoked SOCIAL HISTORY - Gender Sex: Female SOCIAL HISTORY - Status : status i nformation is not available Intention in Next Year: intention information is not available SOCIAL HISTORY - Sexual Behavior Sexual Orientation Gender Identity SNOMED-CT Description SNO MED -CT Description Activity Level No of Partners Partner Type UpdatedBy Information is not available VITAL SIGNS PATIENT VITAL SIGNS This section displays the mo st recent value for each vital sign as of February 25, 2024 5:29:42 PM UT Loinc Code Vital Sign Activity Date Result Updated By 8462-4 Diastolic blood pressure February 23, 2024 1:26:00 AM UTC 76.0 mm[Hg] [id number] on February 23, 2024 1:33:27 AM UT 8867-4 Heart rate February 23, 2024 1:26:00 AM UTC 69 /min [id number] on February 23, 2024 1:33:[place] [address]-9 Oxygen saturation in Blood February 23, 2024 1:26:00 AM UT 100.0 % [id number] on February 23, 2024 1:33:27 AM UT 9279-1 Respiratory rate February 22, 2024 11:28:00 PM UTC 18 /min [id number] on February 22, 2024 11:30:08 PM UT 8480-6 Systolic blood pressure January 1:26:00 AM UTC 132.0 mm[Hg] [id number] on February 23, 2024 1:33:27 AM [facility] PEDIATRIC GROWTH CHART - VITAL SIGNS This section displays Head C ircumference Percentile, Weight for Length Percentile and BMI Percentile Loinc Code Pediatric Measure Age (Months) Result Updat ed By No Pediatric Growth Chart Pe rcentile Information Available. HEALTH CONCERNS Problems Concern Status Health Concern problem infor mation not available. Smoking Status Status Years Used Consumed packs p er day Health Concern smoking histo ry information not available. Family History Concern Status Health Concern family histor y information not available. ENCOUNTERS ENCOUNTER INFORMATION Reason for Visit N/V/D Admission February 22, 2024 11:20:00 [place] [id number] Discharge February 23, 2024 1:33:00 AM UT DI SCHARGED TO HOME OR SELF CARE ENCOUNTER DIAGNOSES Notes information is not alysha ilable. Code System Diagnosis Onset Date Diagnosis information is not available. 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 Role on Team Status Start Date End Date Update d By MUMTAZ HOU MD Referring normal February 22, 12:09:43 AM UT February 22, 2024 4:00:00 AM UT [id number] on February 23, 2024 12:09:43 AM [facility] MUMTAZ HOU MD Attending normal February 22 12:09:43 AM UT February 22, 2024 4:00:00 AM UTC [id number] on February 23, 2024 12:09:43 AM [facility] MUMTAZ HOU MD Admitting normal February 22 12:09:43 AM [facility] February 22, 2024 4:00:00 AM UT [id number] on February 23, 2024 12:09:43 AM [facility] CAROLA Syed PCP normal February 22, 2024 11:20:38 PM [facility] February 22, 2024 4:00:00 AM UTC [id number] on February 23, 2024 12:09:43 AM [facility]
--- OUTSIDE RECORDS SUMMARY | 2024-03-22 17:46 | XMS_ITS | Continuity of Care Document ---
Author Name Unknown Address [address], [place] [id number] Organization [facility] Phone Care Team Providers Care Business Resiliency Manager Name Role Phone UNKNOWN, DR Henry Primary Care Unavailable MCKINLEY CHAMORRO Unavailable MCKINLEY CHAMORRO Admitting MCKINLEY CHAMORRO Primary Attending [phone] ALLERGIES AND ADVERSE REACTIONS ALLERGIES AND ADVERSE REACTIONS Code System Allergy Substance Adverse Reaction Date Reaction (Severity) Comment Status Reported By Updated By No Known Allergies [email or web address] on January 17, 2024 6:11:47 PM UTC RESULTS Patient: KATHERIN SANTAMARIA Date of : 2000 7 LABORATORY RESULTS ORDER 100: CBC W/ AUTO DIFF (LOINC: 15386-8) ORDER DATE: January 17, 2024 6:12:00 PM UTC Specimen Source: Whole Blood Specimen Type: Whole blood s ample PERFORMING LAB: [address] [id number] Result Comment: Final Result Date: January 17, 2024 6:53:00 PM UTC (TECH: BG) LOINC TEST FLAG RESULT REFERENCE RANGE UPDA LUCIAN BY 6690-2 Leukocytes [#/volume ] in Blood by Automated count H 15.40 K/uL 4.5 K/uL - 11.5 K/uL January 17, 2024 6:53:00 PM UTC (TECH: BG) 789-8 Erythrocytes [#/volume] in Blood by Automated count N 5.13 M/uL 4.0 M/uL - 5.4 M/uL January 17, 2024 6:53:00 PM UTC (TECH: BG) 718-7 Hemoglobin [Mass/volume] in Blood H 15.4 g/dL 12.0 g/dL - 15.0 g/dL January 17, 2024 6:53:00 PM UTC (TECH: MDJunction) 4544-3 Hematocrit [Volume Fraction] of Blood by Automated count N 45.6 % 35 % - 49 % January 17, 2024 6:53:00 PM UTC (TECH: BG) 787-2 Erythrocyte mean corpuscular volume [Entitic volume] by Automated count N 88.9 fL 80.0 fL - 100.0 fL January 17, 2024 6:53:00 PM UTC (TECH: BG) 785-6 Erythrocyte mean corpuscular hemoglobin [Entitic mass] by Automated count N 30.0 pg 26.0 pg - 32.0 pg January 17, 2024 6:53:00 PM UTC (TECH: BG) 786-4 Erythrocyte mean corpuscular hemoglobin concentration [Mass/volume] by Automated count N 33.8 g/dL 32.0 g/dL - 36.0 g/dL January 17, 2024 6:53:00 PM UTC (TECH: BG) 788-0 Erythrocyte distribution width [Ratio] by Automated count N 12.1 % 11.5 % - 14.5 % January 17, 2024 6:53:00 PM UTC (TECH: MDJunction) 777-3 Platelets [#/volume] in Blood by Automated count N 324 K/uL 142 K/uL - 424 K/uL January 17, 2024 6:53:00 PM UTC (TECH: MDJunction) 01892-5 Platelet mean volume [Entitic volume] in Blood by Automated count N 9.9 fL 6.8 fL - 10.2 fL January 17, 2024 6:53:00 PM UTC (TECH: MDJunction) 46885-9 Neutrophils/100 leukocytes in Blood H 90.5 % 50 % - 70 % January 16 6:53:00 PM UTC (TECH: BG) 85583-0 Lymphocytes/100 leukocytes in Blood L 5.5 % 18.0 % - 42.0 % January 16 6:53:00 PM UTC (TECH: BG) 10225-9 Monocytes/100 leukocytes in Blood N 3.2 % 2.0 % - 11.0 % January 16 6:53:00 PM UTC (TECH: BG) 45233-7 Eosinophils/100 leukocytes in Blood L 0.0 % 1.0 % - 3.0 % January 16 6:53:00 PM UTC (TECH: BG) 82120-3 Basophils/100 leukocytes in Blood N 0.3 % 0.0 % - 2.0 % January 16 6:53:00 PM UTC (TECH: BG) 22205-8 Immature granulocytes/100 leukocytes in Blood by Automated count N 0.5 % 0.0 % - 0.8 % January 16 6:53:00 PM UTC (TECH: BG) 57967-8 Nucleated cells [#/volume] in Blood N 0.0 % January 16 6:53:00 PM UTC (TECH: BG) 47597-2 Neutrophils [#/volume] in Blood N 13.96 K/uL January 16 6:53:00 PM UTC (TECH: BG) 04348-9 Lymphocytes [#/volume] in Blood N 0.84 K/uL January 16 6:53:00 PM UTC (TECH: BG) 46415-8 Monocytes [#/volume] in Blood N 0.49 K/uL January 17, 2024 6:53:00 PM UTC (TECH: BG) 10835-7 Eosinophils [#/volume] in Blood N 0.00 K/uL January 16 6:53:00 PM UTC (TECH: BG) 704-7 Basophils [#/volume] in Blood by Automated count N 0.04 K/uL January 17, 2024 6:53:00 PM UTC (TECH: BG) 82779-5 Immature granulocyte s [#/volume] in Blood N 0.07 K/uL January 16 6:53:00 PM UTC (TECH: BG) 10938-6 Nucleated cells [#/volume] in Blood N 0.00 k/uL January 16 6:53:00 PM UTC (TECH: BG) 66319-1 Manual differential comment [interpretation] in Blood Narrative N NO January 17, 2024 6:53:00 PM UTC (TECH: BG) ORDER 200: COMP METABOLIC PA FLORES (LOINC: 22382-8) ORDER DATE: January 17, 2024 6:12:00 PM UTC Specimen Source: Serum/Plasm a Specimen Type: Acellular blo od (serum or plasma) specimen PERFORMING LAB: [address] [id number] Result Comment: Final Result Date: January 17, 2024 7:01:00 PM [facility] (TECH: GS) LOINC TEST FLAG RESULT REFERENCE RANGE UPDA LUCIAN BY 2951-2 Sodium [Moles/volume ] in Serum or Plasma N 144 mmol/L 137 mmol/L - 147 mmol/L January 17, 2024 7:01:00 PM [facility] (TECH: GS) 2823-3 Potassium [Moles/volume] in Serum or Plasma L 3.4 mmol/L 3.5 mmol/L - 5.1 mmol/L January 17, 2024 7:01:00 PM [facility] (TECH: GS) 2075-0 Chloride [Moles/volume] in Serum or Plasma N 109 mmol/L 98 mmol/L - 110 mmol/L January 17, 2024 7:01:00 PM [facility] (TECH: GS) 8-9 Carbon dioxide, tota l [Moles/volume] in Serum or Plasma L 18 mmol/L 21 mmol/L - 30 mmol/L January 17, 2024 7:01:00 PM [facility] (TECH: GS) 48360-0 Anion gap in Serum o r Plasma H 17 mmol/L 6 mmol/L - 14 mmol/L January 17, 2024 7:01:00 PM [facility] (TECH: GS) 2345-7 Glucose [Mass/volume ] in Serum or Plasma H 136 mg/dL 70 mg/dL - 115 mg/dL January 17, 2024 7:01:00 PM [facility] (TECH: GS) 3094-0 Urea nitrogen [Mass/volume] in Serum or Plasma N 8 mg/dL 7 mg/dL - 17 mg/dL January 17, 2024 7:01:00 PM [facility] (TECH: GS) 2160-0 Creatinine [Mass/volume] in Serum or Plasma N 0.5 mg/dL 0.5 mg/dL - 1.5 mg/dL January 17, 2024 7:01:00 PM [facility] (TECH: GS) 3097-3 Urea nitrogen/Creatinine [Mass Ratio] in Serum or Plasma N 16 RATIO 10 RATIO - 20 RATIO January 17, 2024 7:01:00 PM [facility] (TECH: GS) 21204-1 Glomerular filtratio n rate/1.73 sq M.predicted N 166 mL/min >60 January 17, 2024 7:01:00 PM [facility] (TECH: Gatheredtable) 08419-8 Osmolality of Serum or Plasma by calculation N 300 mOsmol/Kg 275 mOsmol/Kg - 301 mOsmol/Kg January 17, 2024 7:01:00 PM [facility] (TECH: Gatheredtable) 2885-2 Protein [Mass/volume ] in Serum or Plasma H 8.6 g/dL 6.2 g/dL - 8.2 g/dL January 17, 2024 7:01:00 PM [facility] (TECH: Gatheredtable) 1751-7 Albumin [Mass/volume ] in Serum or Plasma N 5.0 g/dL 3.5 g/dL - 5.0 g/dL January 17, 2024 7:01:00 PM [facility] (TECH: Gatheredtable) 21219-0 Calcium [Mass/volume ] in Serum or Plasma N 10.0 mg/dL 8.5 mg/dL - 10.8 mg/dL January 17, 2024 7:01:00 PM [facility] (TECHIntact Vascular) 1975-2 Bilirubin.total [Mass/volume] in Serum or Plasma N 1.1 mg/dL 0.2 mg/dL - 1.3 mg/dL January 17, 2024 7:01:00 PM [facility] (TECH: Gatheredtable) 1920-8 Aspartate aminotransferase [Enzymatic activity/volume] in Serum or Plasma N 27 IU/L 14 IU/L - 36 IU/L January 17, 2024 7:01:00 PM [facility] (TECH: Gatheredtable) 1742-6 Alanine aminotransferase [Enzymatic activity/volume] in Serum or Plasma N 18 IU/L 0 IU/L - 35 IU/L January 17, 2024 7:01:00 PM [facility] (TECH: Gatheredtable) 66201-4 Alkaline phosphatase.bile [Enzymatic activity/volume] in Serum or Plasma N 86 IU/L 38 IU/L - 126 IU/L January 17, 2024 7:01:00 PM [facility] (TECH: Gatheredtable) ORDER 300: HCG QUALITATIVE S DAYSI (LOINC: 2118-8) ORDER DATE: January 17, 2024 6:12:00 PM [facility] Specimen Source: Serum Specimen Type: Serum specime n PERFORMING LAB: [address] [id number] Result Comment: Final Result Date: January 17, 2024 6:52:00 PM UTC (TECH: GS) LOINC TEST FLAG RESULT REFERENCE RANGE UPDA LUCIAN BY 2118-8 Choriogonadotropin ( test) [Presence] in Serum or Plasma POSITIVE NEGATIVE January 17, 2024 6:52:00 PM UTC (TECH: GS) 55009-3 Non-patient Communic ation note N PASS PASS January 17, 2024 6:52:00 PM UTC (TECH: GS) ORDER 400: LIPASE (LOINC: 30 40-3) ORDER DATE: January 17, 2024 6:12:00 PM UTC Specimen Source: Serum/Plasm a Specimen Type: Acellular blo od (serum or plasma) specimen PERFORMING LAB: [address] [id number] Result Comment: Final Result Date: January 17, 2024 7:01:00 PM UTC (TECH: GS) LOINC TEST FLAG RESULT REFERENCE RANGE UPDA LUCIAN BY 3040-3 Lipase [Enzymatic activity/volume] in Serum or Plasma N 58 U/L 23 U/L - 300 U/L January 17, 2024 7:01:00 PM UTC (TECH: GS) ORDER 500: UA WITH CULTURE I F INDICATED (LOINC: 09857-5) ORDER DATE: January 17, 2024 6:12:00 PM UTC Specimen Source: Urine Specimen Type: Urine specime n PERFORMING LAB: [address] [id number] Result Comment: Final Result Date: January 17, 2024 8:38:00 PM UTC (TECH: BG) LOINC TEST FLAG RESULT REFERENCE RANGE UPDA LUCIAN BY 5778-6 Color of Urine N YELLOW YELLOW January 17, 2024 8:38:00 PM UTC (TECH: BG) 5767-9 Appearance of Urine N CLEAR CLEAR January 17, 2024 8:38:00 PM UTC (TECH: BG) 5792-7 Glucose [Mass/volume] in Urine by Test strip N NEGATIVE NEGATIVE January 17, 2024 8:38:00 PM UTC (TECH: BG) 78518-0 Bilirubin.total [Mass/volume] in Urine by Automated test strip N NEGATIVE NEGATIVE January 17, 2024 8:38:00 PM UTC (TECH: BG) 5797-6 Ketones [Mass/volume] in Urine by Test strip N 3+ NEGATIVE January 17, 2024 8:38:00 PM UTC (TECH: BG) 2965-2 Specific gravity of Urine N 1.025 1.005 - 1.025 January 17, 2024 8:38:00 PM UTC (TECH: BG) 80742-9 Erythrocytes [#/volume] in Urine by Automated test strip N NEGATIVE NEGATIVE January 17, 2024 8:38:00 PM UTC (TECH: BG) 69572-5 pH of Urine by Automated test strip N 6.5 5.0 - 8.0 January 17, 2024 8:38:00 PM UTC (TECH: BG) 25686-5 Protein [Presence] in Urine by Test strip N TRACE NEGATIVE January 17, 2024 8:38:00 PM UTC (TECH: BG) 82327-5 Urobilinogen [Mass/volume] in Urine by Automated test strip N 0.2 E.U./dL 0.0 - 0.2 January 17, 2024 8:38:00 PM UTC (TECH: BG) 32030-5 Nitrate [Presence] in Urine N NEGATIVE NEGATIVE January 17, 2024 8:38:00 PM UTC (TECH: BG) 83970-6 Leukocytes [#/volume] in Urine by Test strip N NEGATIVE NEGATIVE January 17, 2024 8:38:00 PM UTC (TECH: BG) 15261-1 Other elements in Urine sediment N NOT INDICATED January 17, 2024 8:38:00 PM UTC (TECH: BG) 79674-5 Microscopic exam [interpretation] of Urine by Cytology N YES January 17, 2024 8:38:00 PM UTC (TECH: BG) 79780-9 Erythrocytes [#/area] in Urine sediment by Microscopy high power field N NONE SEEN NONE SEEN/HPF January 17, 2024 8:38:00 PM UTC (TECH: BG) 5821-4 Leukocytes [#/area] in Urine sediment by Microscopy high power field N 3-5 NONE SEEN/HPF January 17, 2024 8:38:00 PM UTC (TECH: BG) 22309-9 Epithelial cells.squamous [#/area] in Urine sediment by Microscopy high power field N 2-5 NONE SEEN January 17, 2024 8:38:00 PM UTC (TECH: BG) 5769-5 Bacteria [#/area] in Urine sediment by Microscopy high power field N NEGATIVE NEGATIVE January 17, 2024 8:38:00 PM UTC (TECH: BG) 44608-9 Mucus [#/area] in Urine sediment by Microscopy low power field N 3+ NONE SEEN January 17, 2024 8:38:00 PM UTC (TECH: BG) ORDER 600: HCG BETA QUANTITA TIVE (LOINC: 18780-3) ORDER DATE: January 17, 2024 6:52:00 PM UTC Specimen Source: Serum Specimen Type: Serum specime n PERFORMING LAB: [address] [id number] Result Comment: Final Result Date: January 17, 2024 8:05:00 PM UTC (TECH: GS) LOINC TEST FLAG [place] [address]-8 Choriogonadotrop in.beta subunit [Units/volume] in Serum or Plasma H [address] mIU/mL January 17, 2024 8:05:00 PM UTC (TECH: GS) ORDER 800: UDS OXYCODONE SUB OXONE (LOINC: 33107-2) ORDER DATE: January 17, 2024 7:52:00 PM UTC Specimen Source: Urine Specimen Type: Urine specime n PERFORMING LAB: [address] [id number] Result Comment: Final Result Date: January 17, 2024 9:41:00 PM UTC (TECH: RP1) LOINC TEST FLAG [place] [address]-3 Amphetamine [Presenc e] in Urine by Screen method N NEGATIVE NEGATIVE January 17, 2024 9:41:00 PM UTC (TECH: RP1) 13596-0 Barbiturates [Presen ce] in Urine by Screen method N NEGATIVE NEGATIVE January 17, 2024 9:41:00 PM UTC (TECH: RP1) 05978-3 Benzodiazepines [Pre sence] in Urine by Screen method N NEGATIVE NEGATIVE January 17, 2024 9:41:00 PM UTC (TECH: RP1) 83278-7 Tetrahydrocannabinol [Presence] in Urine by Screen method POSITIVE NEGATIVE January 17, 2024 9:41:00 PM UTC (TECH: RP1) 17315-1 Methadone [Presence] in Urine by Screen method N NEGATIVE NEGATIVE January 17, 2024 9:41:00 PM UTC (TECH: RP1) 23356-9 Opiates [Presence] i n Urine by Screen method N NEGATIVE NEGATIVE January 17, 2024 9:41:00 PM UTC (TECH: RP1) 21896-4 Phencyclidine [Prese nce] in Urine by Screen method N NEGATIVE NEGATIVE January 17, 2024 9:41:00 PM UTC (TECH: RP1) 80793-5 Cocaine [Presence] i n Urine by Screen method N NEGATIVE NEGATIVE January 17, 2024 9:41:00 PM UTC (TECH: RP1) 84807-5 Oxycodone [Presence] in Urine N NEGATIVE NEGATIVE January 17, 2024 9:41:00 PM UTC (TECH: RP1) 12294-1 Internal control result N PASS PASS January 17, 2024 9:41:00 PM UTC (TECH: RP1) 3414-0 Buprenorphine [Prese nce] in Urine N NEGATIVE NEGATIVE January 17, 2024 9:41:00 PM UTC (TECH: RP1) 30126-7 Internal control result N PASS PASS January 17, 2024 9:41:00 PM UTC (TECH: RP1) LABORATORY NARRATIVE RESULTS Information is not available RADIOLOGY RESULTS ORDER 700: US OB TRANSVAGINA L (LOINC: 93073-9) ORDER DATE: January 17, 2024 6:55:00 PM UTC PERFORMING LAB: [address] [id number] Final Result Date: January 17, 2024 8:32:20 PM UTC (TECH: [id number]) [address] [address] (Phone) DIAGNOSTIC IMAGING REPORT Patient Name: ROSALIO PANDEY Patient No: [id number] Date of : 2000 Accession No: [id number] Date of Exam: 01/17/2024 Patient Type: Emergency Ordering Physician: ZULEYMA CRENSHAW FINAL REPORT PROCEDURE: US OB TRANSVAGINAL CLINICAL HISTORY: Nausea / Vomiting COMPARISON: None FINDINGS: ULTRASOUND TRANSVAGINAL Findings: 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 pole identified with crown-rump length of 0.3 cm consistent with gestational age of 5 weeks and 6 days. There is heart motion with heart rate of 96 bpm. The bilateral ovaries were not visualized. No pelvic free fluid. IMPRESSION: Single live intrauterine . No acute process. Uterine didelphys. Reviewed, Interpreted and Dictated by Maida Hicks MD Transcribed by SUNG Morrissey Authenticated and ERN PATHOLOGY NARRATIVE RESULTS Information is not available MICROBIOLOGY RESULTS No Micro Labs/Results Exist for Patient BLOOD ADMIN RESULTS Information is not available MEDICATIONS HOME MEDICATIONS Status RXNORM [facility] Medication Dose Route Frequency Dates Comments Reported By Updated By Drug Treatment Unknown DISCHARGE MEDICATIONS Status RXNORM ND Medication Dose Route Frequency Dates Comments Physician Updated By No Discharge Medication Info rmation Available INPATIENT MEDICATIONS Status RXNORM [facility] Medication Dose Route Frequency Rat e Quantity Dates Comments Physician Updated By Discont inued [id number] 7722 5613 005 ondansetron (ZOFRAN) INJ 4 MG/2 ML SOLN 4.0 MG IV PUSH ONE TIME ONLY Start: January 17, 2024 7:07:0 0 PM UTC End: January 17, 2024 7:07:0 0 PM [facility]HT[facility] S[facility] ED on January 17, 2024 7:06:00 PM [place] Discont inued [id number] 5419 3450 204 metoclopram yanci (REGLAN) 10 MG/2 ML SOLN 10.0 MG IV PUSH ONE TIME ONLY Start: January 17, 2024 7:59:0 0 PM UT End: January 17, 2024 7:59:0 0 PM [facility] on January 17, 2024 7:58:00 PM UT Discont inued [id number] 5502 0701 001 ACETAMINOPH EN 325 MG TABS 325.0 MG BY MOUTH ONE TIME ONLY Start: January 17, 2024 8:01:0 0 PM UTC End: January 17, 2024 8:01:0 0 PM UTC OLIVERIORADHAMARTINEZ MCKINLEY DO INTERFAC ED on January 17, 2024 7:59:00 PM UTC SOCIAL HISTORY SOCIAL HISTORY SNOMED-CT Social History Element Description Effective Dates Offered Cessation Comment UpdatedBy [id number] Smoking Status Unknown If Ever Smoked SOCIAL [...] value for each vital sign as of January 20, 2024 7:46:10 PM UTC Loinc Code Vital Sign Activity Date Result Updated By 8310-5 Body temperature January 17, 2024 6:11:49 PM UTC 97.8 [degF] [id number] on January 18, 2024 8:29:25 PM UTC 38560-9 Body weight Measured January 17 8:29:26 PM UTC 58.967 kg (130.0 lb) [id number] on January 18, 2024 8:29:26 PM UTC 8462-4 Diastolic blood pressure January 17, 2024 6:11:49 PM UTC 63.0 mm[Hg] [id number] on January 18, 2024 8:29:25 PM UTC 8867-4 Heart rate January 17, 2024 6:11:49 PM UTC 66 /min [id number] on January 18, 2024 8:29:25 PM UTC 88536-8 Oxygen saturation in Blood January 17, 2024 6:11:49 PM UTC 100.0 % [id number] on January 18, 2024 8:29:25 PM UTC 9279-1 Respiratory rate January 17, 2024 6:11:49 PM UTC 18 /min [id number] on January 18, 2024 8:29:25 PM UTC 8480-6 Systolic blood pressure January 17, 2024 6:11:49 PM UTC 125.0 mm[Hg] [id number] on January 18, 2024 8:29:25 PM [facility] PEDIATRIC GROWTH CHART - VITAL SIGNS [...] available. ENCOUNTERS ENCOUNTER INFORMATION Reason for Visit VOMITING, Admission January 17, 2024 6:06:[address] [address] Discharge January 17, 2024 8:29:00 PM [facility] FT AGAINST ADVICE OR DISCONTINUED ENCOUNTER DIAGNOSES Notes information is not alysha ilable. Code System Diagnosis Onset Date Diagnosis information is not available. ABSTRACT DIAGNOSES Code System Diagnosis Updated By Abstract Diagnosis informati on is not available. CARE TEAM Care Business Resiliency Manager Role DR JEAN BAPTISTE Primary Care MCKINLEY CHAMORRO Referring MCKINLEY CHAMORRO Admitting MCKINLEY CHAMORRO Primary Attending CARE TEAM CARE financial economist Role on Team Status Start Date End Date Update d By UNKNOWN DR AHUMADA NAME IN PCP normal January 17, 2024 7:56:59 PM [facility] January 17, 2024 8:29:00 PM [facility] [id number] on January 17, 2024 7:56:59 PM [facility] ASHTYN SEN DO Referring normal January 17, 2024 7:56:59 PM [facility] January 17, 2024 8:29:00 PM [facility] [id number] on January 17, 2024 7:56:59 PM [facility] ASHTYN SEN DO Attending normal January 17, 2024 7:56:59 PM [facility] January 17, 2024 8:29:00 PM [facility] [id number] on January 17, 2024 7:56:59 PM [facility] ASHTYN SEN DO Admitting normal January 17, 2024 7:56:59 PM [facility] January 17, 2024 8:29:00 PM [facility] [id number] on January 17, 2024 7:56:59 PM [facility]
--- OUTSIDE RECORDS SUMMARY | 2024-03-22 17:46 | XMS_ITS | Continuity of Care Document ---
Author Name Unknown Address [address], [place] [id number] Organization [facility] Phone Care Team Providers Care Behavioral Health Associate Name Role Phone TAYLOR SRIVASTAVA Primary Care SATINDER MIRANDA Primary Attending SATINDER MIRANDA Admitting SATINDER MIRANDA Unavailable ALLERGIES AND ADVERSE REACTIONS ALLERGIES AND ADVERSE REACTIONS Code System Allergy Substance Adverse Reaction Date Reaction (Severity) Comment Status Reported By Updated By No Known Allergies [id number] on February 21, 2024 7:56:00 PM UTC RESULTS Patient: KATHERIN SANTAMARIA Date of : 2000 9 LABORATORY RESULTS ORDER 100: CBC W/ AUTO DIFF (LOINC: 50533-4) ORDER DATE: February 21, 2024 5:10:00 PM UTC Specimen Source: Whole Blood Specimen Type: Whole blood s ample PERFORMING LAB: [address] [id number] Result Comment: Final Result Date: February 21, 2024 5:44:00 PM UTC (TECH: GS) LOINC TEST FLAG RESULT REFERENCE RANGE UPDA LUCIAN BY 6690-2 Leukocytes [#/volume ] in Blood by Automated count H 14.34 K/uL 4.5 K/uL - 11.5 K/uL February 21, 2024 5:44:00 PM UTC (TECH: GS) 789-8 Erythrocytes [#/volume] in Blood by Automated count N 4.70 M/uL 4.0 M/uL - 5.4 M/uL February 21, 2024 5:44:00 PM UTC (TECH: GS) 718-7 Hemoglobin [Mass/volume] in Blood N 14.2 g/dL 12.0 g/dL - 15.0 g/dL February 21, 2024 5:44:00 PM UTC (TECH: GS) 4544-3 Hematocrit [Volume Fraction] of Blood by Automated count N 40.8 % 35 % - 49 % February 21, 2024 5:44:00 PM UTC (TECH: [employer]) 787-2 Erythrocyte mean corpuscular volume [Entitic volume] by Automated count N 86.8 fL 80.0 fL - 100.0 fL February 21, 2024 5:44:00 PM UTC (TECH: [employer]) 785-6 Erythrocyte mean corpuscular hemoglobin [Entitic mass] by Automated count N 30.2 pg 26.0 pg - 32.0 pg February 21, 2024 5:44:00 PM UTC (TECH: [employer]) 786-4 Erythrocyte mean corpuscular hemoglobin concentration [Mass/volume] by Automated count N 34.8 g/dL 32.0 g/dL - 36.0 g/dL February 21, 2024 5:44:00 PM UTC (TECH: [employer]) 788-0 Erythrocyte distribution width [Ratio] by Automated count N 12.3 % 11.5 % - 14.5 % February 21, 2024 5:44:00 PM UTC (TECH: [employer]) 777-3 Platelets [#/volume] in Blood by Automated count N 324 K/uL 142 K/uL - 424 K/uL February 21, 2024 5:44:00 PM UTC (TECH: [employer]) 84692-8 Platelet mean volume [Entitic volume] in Blood by Automated count N 9.5 fL 6.8 fL - 10.2 fL February 21, 2024 5:44:00 PM UTC (TECH: [employer]) 10392-5 Neutrophils/100 leukocytes in Blood H 93.7 % 50 % - 70 % February 20 5:44:00 PM UTC (TECH: [employer]) 10937-7 Lymphocytes/100 leukocytes in Blood L 3.7 % 18.0 % - 42.0 % February 20 5:44:00 PM UTC (TECH: [employer]) 04319-9 Monocytes/100 leukocytes in Blood N 2.1 % 2.0 % - 11.0 % February 20 5:44:00 PM UTC (TECH: [employer]) 56028-8 Eosinophils/100 leukocytes in Blood L 0.0 % 1.0 % - 3.0 % February 20 5:44:00 PM UTC (TECH: GS) 78718-3 Basophils/100 leukocytes in Blood N 0.2 % 0.0 % - 2.0 % February 20 5:44:00 PM UTC (TECH: GS) 14641-2 Immature granulocytes/100 leukocytes in Blood by Automated count N 0.3 % 0.0 % - 0.8 % February 20 5:44:00 PM UTC (TECH: GS) 30540-9 Nucleated cells [#/volume] in Blood N 0.0 % February 20 5:44:00 PM UTC (TECH: GS) 59753-3 Neutrophils [#/volume] in Blood N 13.43 K/uL February 20 5:44:00 PM UTC (TECH: GS) 11960-3 Lymphocytes [#/volume] in Blood N 0.53 K/uL February 20 5:44:00 PM UTC (TECH: GS) 24056-9 Monocytes [#/volume] in Blood N 0.30 K/uL February 21, 2024 5:44:00 PM UTC (TECH: GS) 66246-7 Eosinophils [#/volume] in Blood N 0.00 K/uL February 20 5:44:00 PM UTC (TECH: GS) 704-7 Basophils [#/volume] in Blood by Automated count N 0.03 K/uL February 21, 2024 5:44:00 PM UTC (TECH: GS) 21699-0 Immature granulocyte s [#/volume] in Blood N 0.05 K/uL February 20 5:44:00 PM UTC (TECH: GS) 56521-1 Nucleated cells [#/volume] in Blood N 0.00 k/uL February 20 5:44:00 PM UTC (TECH: GS) 86813-8 Manual differential comment [interpretation] in Blood Narrative N YES February 21, 2024 5:44:00 PM UTC (TECH: GS) ORDER 200: COMP METABOLIC PA FLORES (LOINC: 66798-1) ORDER DATE: February 21, 2024 5:10:00 PM UTC Specimen Source: Serum Specimen Type: Serum specime n PERFORMING LAB: [address] [id number] Result Comment: Final Result Date: February 21, 2024 5:52:00 PM UT (TECH: [employer]) LOINC TEST FLAG RESULT REFERENCE RANGE UPDA LUCIAN BY 2951-2 Sodium [Moles/volume ] in Serum or Plasma N 142 mmol/L 137 mmol/L - 147 mmol/L February 21, 2024 5:52:00 PM UT (TECH: CB) 2823-3 Potassium [Moles/volume] in Serum or Plasma N 3.6 mmol/L 3.5 mmol/L - 5.1 mmol/L February 21, 2024 5:52:00 PM UT (TECH: CB) 2075-0 Chloride [Moles/volu me] in Serum or Plasma N 109 mmol/L 98 mmol/L - 110 mmol/L February 21, 2024 5:52:00 PM UT (TECH: CB) 8-9 Carbon dioxide, tota l [Moles/volume] in Serum or Plasma N 22 mmol/L 21 mmol/L - 30 mmol/L February 21, 2024 5:52:00 PM UT (TECH: [employer]) 34830-0 Anion gap in Serum o r Plasma N 11 mmol/L 6 mmol/L - 14 mmol/L February 21, 2024 5:52:00 PM UT (TECH: CB) 2345-7 Glucose [Mass/volume ] in Serum or Plasma H 150 mg/dL 70 mg/dL - 115 mg/dL February 21, 2024 5:52:00 PM UT (TECH: CB) 3094-0 Urea nitrogen [Mass/volume] in Serum or Plasma L 5 mg/dL 7 mg/dL - 17 mg/dL February 21, 2024 5:52:00 PM UT (TECH: CB) 2160-0 Creatinine [Mass/volume] in Serum or Plasma N 0.6 mg/dL 0.5 mg/dL - 1.5 mg/dL February 21, 2024 5:52:00 PM UT (TECH: [facility]) 3097-3 Urea nitrogen/Creatinine [Mass Ratio] in Serum or Plasma L 8 RATIO 10 RATIO - 20 RATIO February 21, 2024 5:52:00 PM UT (TECH: [employer]) 53285-5 Glomerular filtratio n rate/1.73 sq M.predicted N 134 mL/min >60 February 21, 2024 5:52:00 PM UT (TECH: [employer]) 20847-4 Osmolality of Serum or Plasma by calculation N 295 mOsmol/Kg 275 mOsmol/Kg - 301 mOsmol/Kg February 21, 2024 5:52:00 PM UT (TECH: [employer]) 2885-2 Protein [Mass/volume ] in Serum or Plasma N 8.2 g/dL 6.2 g/dL - 8.2 g/dL February 21, 2024 5:52:00 PM UT (TECH: [employer]) 1751-7 Albumin [Mass/volume ] in Serum or Plasma N 5.0 g/dL 3.5 g/dL - 5.0 g/dL February 21, 2024 5:52:00 PM UT (TECH: [employer]) 56349-9 Calcium [Mass/volume ] in Serum or Plasma N 9.8 mg/dL 8.5 mg/dL - 10.8 mg/dL February 21, 2024 5:52:00 PM UT (TECH: [place]) 1975-2 Bilirubin.total [Mass/volume] in Serum or Plasma H 1.5 mg/dL 0.2 mg/dL - 1.3 mg/dL February 21, 2024 5:52:00 PM UT (TECH: [place]) 1920-8 Aspartate aminotransferase [Enzymatic activity/volume] in Serum or Plasma N 21 IU/L 14 IU/L - 36 IU/L February 21, 2024 5:52:00 PM UT (TECH: [place]) 1742-6 Alanine aminotransferase [Enzymatic activity/volume] in Serum or Plasma N 17 IU/L 0 IU/L - 35 IU/L February 21, 2024 5:52:00 PM [facility] (TECH: [place]) 24980-8 Alkaline phosphatase.bile [Enzymatic activity/volume] in Serum or Plasma N 75 IU/L 38 IU/L - 126 IU/L February 21, 2024 5:52:00 PM UT (TECH: [employer]) ORDER 300: LIPASE (LOINC: 30 40-3) ORDER DATE: February 21, 2024 5:10:00 PM UT Specimen Source: Serum Specimen Type: Serum specime n PERFORMING LAB: [address] [id number] Result Comment: Final Result Date: February 21, 2024 5:51:00 PM UTC (TECH: [facility]) LOINC TEST FLAG RESULT REFERENCE RANGE UPDA LUCIAN BY 3040-3 Lipase [Enzymatic activity/volume] in Serum or Plasma N 47 U/L 23 U/L - 300 U/L February 21, 2024 5:51:00 PM UTC (TECH: [facility]) ORDER 400: UA WITH CULTURE I F INDICATED (LOINC: 36332-9) ORDER DATE: February 21, 2024 5:10:00 PM UTC Specimen Source: Urine Specimen Type: Urine specime n PERFORMING LAB: [address] [id number] Result Comment: Final Result Date: February 21, 2024 8:17:00 PM UTC (TECH: GS) LOINC TEST FLAG RESULT REFERENCE RANGE UPDA LUCIAN BY 5778-6 Color of Urine N YELLOW YELLOW February 21, 2024 8:17:00 PM UTC (TECH: GS) 5767-9 Appearance of Urine N CLEAR CLEAR February 21, 2024 8:17:00 PM UTC (TECH: GS) 5792-7 Glucose [Mass/volume ] in Urine by Test strip N NEGATIVE NEGATIVE February 20 8:17:00 PM UTC (TECH: GS) 08446-1 Bilirubin.total [Mass/volume] in Urine by Automated test strip N NEGATIVE NEGATIVE January 8:17:00 PM UTC (TECH: GS) 5797-6 Ketones [Mass/volume ] in Urine by Test strip N 3+ NEGATIVE February 20 8:17:00 PM UTC (TECH: GS) 2965-2 Specific gravity of Urine N 1.020 1.005 - 1.025 February 21, 2024 8:17:00 PM UTC (TECH: GS) 88462-7 Erythrocytes [#/volu me] in Urine by Automated test strip N NEGATIVE NEGATIVE February 21, 2024 8:17:00 PM UTC (TECH: GS) 33650-7 pH of Urine by Autom ated test strip N 6.5 5.0 - 8.0 February 21, 2024 8:17:00 PM UTC (TECH: GS) 68823-1 Protein [Presence] i n Urine by Test strip N TRACE NEGATIVE February 20 8:17:00 PM UTC (TECH: GS) 23242-1 Urobilinogen [Mass/volume] in Urine by Automated test strip N 0.2 E.U./dL 0.0 - 0.2 January 8:17:00 PM UTC (TECH: GS) 68108-7 Nitrate [Presence] i n Urine N NEGATIVE NEGATIVE February 21, 2024 8:17:00 PM UTC (TECH: GS) 15328-0 Leukocytes [#/volume ] in Urine by Test strip N NEGATIVE NEGATIVE February 20 8:17:00 PM UTC (TECH: GS) 78338-3 Other elements in Ur ine sediment N NOT INDICATED February 21, 2024 8:17:00 PM UTC (TECH: GS) 10159-1 Microscopic exam [interpretation] of Urine by Cytology N NO February 21, 2024 8:17:00 PM UTC (TECH: GS) LABORATORY NARRATIVE RESULTS Information is not available RADIOLOGY RESULTS ORDER 600: US OB TRANSVAGINA L (LOINC: 87231-4) ORDER DATE: February 21, 2024 5:27:00 PM UTC PERFORMING LAB: [address] [id number] Final Result Date: February 21, 2024 6:46:50 PM UTC (TECH: [id number]) [address] [address] (Phone) IMAGING REPORT Name: ROSALIO PANDEY : 2000 Age: 23 Years Patient Type: Outpatient Sex: F Exam Description: US OB TRANSVAGINAL Exam Reason: Abd Pain Order Date/Time: 02/21/2024 01:27:00 PM Dictated By: Jaden Velázquez MD Ordering Physician: DHAVAL DUVALL Attending Physician: SATINDER MIRANDA EXAM: US OB TRANSVAGINAL INDICATION: Abd Pain COMPARISON: OB ultrasound from January 17, 2024. FINDINGS: Sonographic evaluation of the maternal pelvis was performed transvaginally utilizing grayscale, color, M-mode and pulse Doppler imaging. Gestational sac is identified within the uterus. The mean sac diameter is 4.1 cm corresponding to gestational age of 9 weeks 4 days. The fetus is identified. The crown-rump length is 3.74 cm corresponding to gestational age of 10 weeks 4 days. The heart rate is regular and 163 bpm. The patient is known to have a uterine didelphys, although this is difficult to evaluate on this examination. The cervix is closed. None of the ovaries could be visualized. The patient was unable to tolerate pressure from the transvaginal probe due to vomiting during the examination. Ovaries could not be visualized on the previous ultrasound either. PAGE 1 OF 2 Name: ROSALIO PANDEY : 2000 Age: 23 Years Patient Type: Outpatient Sex: F Exam Description: US OB TRANSVAGINAL Exam Reason: Abd Pain Order Date/Time: 02/21/2024 01:27:00 PM IMPRESSION: 1. Single live intrauterine gestation with gestational age of 10 weeks 4 days. Estimated date of delivery by sonography is September 17, 2024. 2. Ovaries could not be visualized. Electronically signed by: Jaden Velázquez MD 02/21/2024 02:46 PM EDT Principal Manager Of Training Name: Jaden Velázquez Provider ID: [id number] PAGE 2 OF 2 PATHOLOGY NARRATIVE RESULTS Information is not available MICROBIOLOGY RESULTS No Micro Labs/Results Exist for Patient BLOOD ADMIN RESULTS Information is not available TREATMENT PLAN DISCHARGE MEDICATIONS Status RXNORM Medication Dose Route Frequency Dates Comments U pdated By Patient discharge medication information is not available. PATIENT OPEN ORDERS Code System Description Frequency Occurrences Priority [place] [address] [facility] [Units/volume ] ONE TIME 0 Stat February 21, 2024 5:10:00 PM [place] SNEED PAC [id number] on February 21, 2024 5:10:00 PM UT SCHEDULED PROCEDURES Code System Description Status Scheduled Date Upd ated By Patient scheduled procedure information is not available. MEDICATIONS HOME MEDICATIONS Status RXNORM NDC Medication Dose Route Frequency Dates Comments Reported By Updated By Active [id number] 18348 Bonjesta 20-20 mg tablet,IR & delayed release,bip hasic 1.0 TAB PO DAILY Last Dose: Last Dose Unknown; [id number] on February 21, 2024 5:52:50 PM UT DISCHARGE MEDICATIONS Status RXNORM NDC Medication Dose Route Frequency Dates Comments Physician Updated By No Discharge Medication Info rmation Available INPATIENT MEDICATIONS Status RXNORM NDC Medication Dose Route Frequency Rat e Quantity Dates Comments Physician Updated By Cliff inued [id number] 0524 5613 005 ondansetron (ZOFRAN) INJ 4 MG/2 ML SOLN 4.0 MG IV PUSH ONE TIME ONLY Start: February 21, 2024 5:35:0 0 PM UTC End: February 21, 2024 5:35:0 0 PM UTC RUBEN RAJAN MD INTERFAC ED on February 21, 2024 5:34:00 PM UT Discont inued [id number] 8696 1779 204 metoclopram yanci (REGLAN) 10 MG/2 ML SOLN 10.0 MG IV PUSH ONE TIME ONLY Start: February 21, 2024 6:32:0 0 PM UTC End: February 21, 2024 6:32:0 0 PM UTC RUBEN RAJAN MD INTERFAC ED on February 21, 2024 6:31:00 PM UT Discont inued 0090 4673 061 ACETAMINOPH EN EXTRA STRENGTH 500 MG TABS 500.0 MG BY MOUTH ONE TIME ONLY Start: February 21, 2024 7:14:0 0 PM UTC End: February 21, 2024 7:14:0 0 PM UTC RUBEN RAJAN MD INTERFAC ED on February 21, 2024 7:13:00 PM UTC Discont inued [id number] 6850 1092 821 promethazin e (PHENERGAN) 25 MG/ML SOLN 25.0 MG IV PUSH ONE TIME ONLY Start: February 21, 2024 7:14:0 0 PM UTC End: February 21, 2024 7:14:0 0 PM UTC RUBEN RAJAN MD INTERFAC ED on February 21, 2024 7:13:00 PM UTC Discont inued [id number] 1259 3450 204 metoclopram yanci (REGLAN) 10 MG/2 ML SOLN 10.0 MG IV PUSH ONE TIME ONLY Start: February 21, 2024 8:41:0 0 PM UTC End: February 21, 2024 8:41:0 0 PM UTC RUBEN RAJAN MD INTERFAC ED on February 21, 2024 8:40:00 PM UT SOCIAL HISTORY SOCIAL HISTORY SNOMED-CT Social History Element Description Effective Dates Offered Cessation Comment UpdatedBy [id number] Smoking Status Unknown If Ever Smoked SOCIAL [...] for each vital sign as of February 21, 2024 10:57:03 PM [facility] Loinc Code Vital Sign Activity Date Result Updated By 8462-4 Diastolic blood pressure February 21, 2024 7:53:00 PM UT 68.0 mm[Hg] [id number] on February 21, 2024 7:58:19 PM UT 8867-4 Heart rate February 21, 2024 9:00:00 PM UT 87 /min [id number] on February 21, 2024 9:56:19 PM [facility] 06205-9 Oxygen saturation in Blood February 21, 2024 9:00:00 PM UT 100.0 % [id number] on February 21, 2024 9:56:19 PM [facility] 9279-1 Respiratory rate February 21, 2024 9:00:00 PM UTC 17 /min [id number] on February 21, 2024 9:56:19 PM UT 8480-6 Systolic blood pressure January 7:53:00 PM UTC 133.0 mm[Hg] [id number] on February 21, 2024 7:58:19 PM UT PEDIATRIC GROWTH CHART - VITAL SIGNS This [...] available. ENCOUNTERS ENCOUNTER INFORMATION Reason for Visit VOMITING ABD CRAMPIN G Admission February 21, 2024 5:04:00 PM [place] [id number] Discharge February 21, 2024 9:57:00 PM UT DI SCHARGED TO HOME OR SELF CARE ENCOUNTER DIAGNOSES Notes information is not alysha ilable. Code System Diagnosis Onset Date Diagnosis information is not available. ABSTRACT DIAGNOSES Code System Diagnosis Updated By Abstract Diagnosis informati on is not available. CARE TEAM Care Behavioral Health Associate Role TAYLOR SRIVASTAVA Primary Care SATINDER MIRANDA Primary Attending SATINDER MIRANDA Admitting SATINDER MIRANDA Referring CARE TEAM CARE room clerk Role on Team Status Start Date End Date Update d By CAROLA Syed PCP normal February 21, 2024 6:14:15 PM [facility] February 21, 2024 9:57:00 PM [facility] [id number] on February 21, 2024 6:14:15 PM [facility] RUBEN RAJAN MD Referring normal February 20 6:14:14 PM [facility] February 21, 2024 9:57:00 PM [facility] [id number] on February 21, 2024 6:14:15 PM [facility] RUBEN RAJAN MD Attending normal February 20 6:14:14 PM [facility] February 21, 2024 9:57:00 PM [facility] [id number] on February 21, 2024 6:14:15 PM [facility] RUBEN RAJAN MD Admitting normal February 20 6:14:14 PM [facility] February 21, 2024 9:57:00 PM [facility] [id number] on February 21, 2024 6:14:15 PM [facility] UNKNOWN DR AHUMADA NAME IN PCP normal February 21, 2024 5:04:23 PM [facility] February 21, 2024 6:14:15 PM [facility] [id number] on February 21, 2024 6:14:15 PM [facility]
--- OUTSIDE RECORDS SUMMARY | 2024-03-22 17:46 | XMS_ITS | Continuity of Care Document ---
Author Name Unknown Address [address], [place] [id number] Organization [facility] Phone Care Team Providers Care Backend Java Developer Name Role Phone UNKNOWN, DR Henry Primary Care Unavailable MCKINLEY CHAMORRO Unavailable MCKINLEY CHAMORRO Admitting MCKINLEY CHAMORRO Primary Attending [phone] ALLERGIES AND ADVERSE REACTIONS ALLERGIES AND ADVERSE REACTIONS Code System Allergy Substance Adverse Reaction Date Reaction (Severity) Comment Status Reported By Updated By No Known Allergies [email or web address] on January 17, 2024 6:11:47 PM UTC RESULTS Patient: KATHERIN SANTAMARIA Date of : 2000 7 LABORATORY RESULTS ORDER 100: CBC W/ AUTO DIFF (LOINC: 65348-9) ORDER DATE: January 17, 2024 6:12:00 PM UTC Specimen Source: Whole Blood Specimen Type: Whole blood s ample PERFORMING LAB: [address] [id number] Result Comment: Final Result Date: January 17, [...] January 17, 2024 6:53:00 PM UTC (TECH: [employer]) 4544-3 Hematocrit [Volume Fraction] of Blood by [...] January 17, 2024 6:53:00 PM UTC (TECH: [employer]) 777-3 Platelets [#/volume] in Blood by Automated count N 324 K/uL 142 K/uL - 424 K/uL January 17, 2024 6:53:00 PM UTC (TECH: [employer]) 10535-8 Platelet mean volume [Entitic volume] in Blood by Automated count N 9.9 fL 6.8 fL - 10.2 fL January 17, 2024 6:53:00 PM UTC (TECH: [employer]) 73142-4 Neutrophils/100 leukocytes in Blood H 90.5 % 50 % - 70 % January 16 6:53:00 PM UTC (TECH: BG) 02664-2 Lymphocytes/100 leukocytes in Blood L 5.5 % 18.0 % - 42.0 % January 16 6:53:00 PM UTC (TECH: BG) 36510-3 Monocytes/100 leukocytes in Blood N 3.2 % 2.0 % - 11.0 % January 16 6:53:00 PM UTC (TECH: BG) 55076-5 Eosinophils/100 leukocytes in Blood L 0.0 % 1.0 % - 3.0 % January 16 6:53:00 PM UTC (TECH: BG) 84577-8 Basophils/100 leukocytes in Blood N 0.3 % 0.0 % - 2.0 % January 16 6:53:00 PM UTC (TECH: BG) 59594-7 Immature granulocytes/100 leukocytes in Blood by Automated count N 0.5 % 0.0 % - 0.8 % January 16 6:53:00 PM UTC (TECH: BG) 53787-0 Nucleated cells [#/volume] in Blood N 0.0 % January 16 6:53:00 PM UTC (TECH: BG) 64621-2 Neutrophils [#/volume] in Blood N 13.96 K/uL January 16 6:53:00 PM UTC (TECH: BG) 78430-5 Lymphocytes [#/volume] in Blood N 0.84 K/uL January 16 6:53:00 PM UTC (TECH: BG) 23125-3 Monocytes [#/volume] in Blood N 0.49 K/uL January 17, 2024 6:53:00 PM UTC (TECH: BG) 13984-8 Eosinophils [#/volume] in Blood N 0.00 K/uL January 16 6:53:00 PM UTC (TECH: BG) 704-7 Basophils [#/volume] in Blood by Automated count N 0.04 K/uL January 17, 2024 6:53:00 PM UTC (TECH: BG) 16004-1 Immature granulocyte s [#/volume] in Blood N 0.07 K/uL January 16 6:53:00 PM UTC (TECH: BG) 40281-3 Nucleated cells [#/volume] in Blood N 0.00 k/uL January 16 6:53:00 PM UTC (TECH: BG) 89540-0 Manual differential comment [interpretation] in Blood Narrative N NO January 17, 2024 6:53:00 PM UTC (TECH: BG) ORDER 200: COMP METABOLIC PA FLORES (LOINC: 12739-9) ORDER DATE: January 17, 2024 6:12:00 PM UTC Specimen Source: Serum/Plasm a Specimen Type: Acellular blo od (serum or plasma) specimen PERFORMING LAB: [address] [id number] Result Comment: Final Result Date: January 17, 2024 7:01:00 PM [facility] (TECH: GS) LOINC TEST FLAG RESULT [...] 17, 2024 7:01:00 PM [place] (TECH: GS) 94384-6 Anion gap in Serum o r Plasma [...] 17, 2024 7:01:00 PM [place] (TECH: GS) 07544-3 Glomerular filtratio n rate/1.73 sq M.predicted N 166 mL/min >60 January 17, 2024 7:01:00 PM UT (TECH: [employer]) 77368-9 Osmolality of Serum or Plasma by calculation N 300 mOsmol/Kg 275 mOsmol/Kg - 301 mOsmol/Kg January 17, 2024 7:01:00 PM [place] (TECH: [employer]) 2885-2 Protein [Mass/volume ] in Serum or Plasma H 8.6 g/dL 6.2 g/dL - 8.2 g/dL January 17, 2024 7:01:00 PM [place] (TECH: [employer]) 1751-7 Albumin [Mass/volume ] in Serum or Plasma N 5.0 g/dL 3.5 g/dL - 5.0 g/dL January 17, 2024 7:01:00 PM [facility] (TECH: [employer]) 61543-6 Calcium [Mass/volume ] in Serum or Plasma N 10.0 mg/dL 8.5 mg/dL - 10.8 mg/dL January 17, 2024 7:01:00 PM [facility] ([employer]) 1975-2 Bilirubin.total [Mass/volume] in Serum or Plasma N 1.1 mg/dL 0.2 mg/dL - 1.3 mg/dL January 17, 2024 7:01:00 PM [place] (TECH: [employer]) 1920-8 Aspartate aminotransferase [Enzymatic activity/volume] in Serum or Plasma N 27 IU/L 14 IU/L - 36 IU/L January 17, 2024 7:01:00 PM [facility] (TECH: [employer]) 1742-6 Alanine aminotransferase [Enzymatic activity/volume] in Serum or Plasma N 18 IU/L 0 IU/L - 35 IU/L January 17, 2024 7:01:00 PM [facility] (TECH: [employer]) 83504-8 Alkaline phosphatase.bile [Enzymatic activity/volume] in Serum or Plasma N 86 IU/L 38 IU/L - 126 IU/L January 17, 2024 7:01:00 PM [facility] (TECH: [employer]) ORDER 300: HCG QUALITATIVE S DAYSI (LOINC: 2118-8) ORDER DATE: January 17, 2024 6:12:00 PM [place] Specimen Source: Serum Specimen Type: Serum specime n PERFORMING LAB: [address] [id number] Result Comment: Final Result Date: January 17, 2024 6:52:00 PM UTC (TECH: GS) LOINC TEST FLAG RESULT REFERENCE RANGE UPDA LUCIAN BY 2118-8 Choriogonadotropin ( test) [Presence] in Serum or Plasma POSITIVE NEGATIVE January 17, 2024 6:52:00 PM UTC (TECH: GS) 65635-6 Non-patient Communic ation note N PASS PASS January 17, 2024 6:52:00 PM UTC (TECH: GS) ORDER 400: LIPASE (LOINC: 30 40-3) ORDER DATE: January 17, 2024 6:12:00 PM UTC Specimen Source: Serum/Plasm a Specimen Type: Acellular blo od (serum or plasma) specimen PERFORMING LAB: [address] [id number] Result Comment: Final Result Date: January 17, 2024 7:01:00 PM UTC (TECH: GS) LOINC TEST FLAG RESULT REFERENCE RANGE UPDA LUCIAN BY 3040-3 Lipase [Enzymatic activity/volume] in Serum or Plasma N 58 U/L 23 U/L - 300 U/L January 17, 2024 7:01:00 PM UTC (TECH: GS) ORDER 500: UA WITH CULTURE I F INDICATED (LOINC: 79215-4) ORDER DATE: January 17, 2024 6:12:00 PM UTC Specimen Source: Urine Specimen Type: Urine specime n PERFORMING LAB: [address] [id number] Result Comment: Final Result Date: January 17, [...] 17, 2024 8:38:00 PM UTC (TECH: BG) 57969-0 Bilirubin.total [Mass/volume] in Urine by Automated test strip N NEGATIVE NEGATIVE January 17, 2024 8:38:00 PM UTC (TECH: BG) 5797-6 Ketones [Mass/volume] in Urine by Test strip N 3+ NEGATIVE January 17, 2024 8:38:00 PM UTC (TECH: BG) 2965-2 Specific gravity of Urine N 1.025 1.005 - 1.025 January 17, 2024 8:38:00 PM UTC (TECH: BG) 17641-9 Erythrocytes [#/volume] in Urine by Automated test strip N NEGATIVE NEGATIVE January 17, 2024 8:38:00 PM UTC (TECH: BG) 84619-5 pH of Urine by Automated test strip N 6.5 5.0 - 8.0 January 17, 2024 8:38:00 PM UTC (TECH: BG) 79236-2 Protein [Presence] in Urine by Test strip N TRACE NEGATIVE January 17, 2024 8:38:00 PM UTC (TECH: BG) 20687-2 Urobilinogen [Mass/volume] in Urine by Automated test strip N 0.2 E.U./dL 0.0 - 0.2 January 17, 2024 8:38:00 PM UTC (TECH: BG) 82898-5 Nitrate [Presence] in Urine N NEGATIVE NEGATIVE January 17, 2024 8:38:00 PM UTC (TECH: BG) 57885-6 Leukocytes [#/volume] in Urine by Test strip N NEGATIVE NEGATIVE January 17, 2024 8:38:00 PM UTC (TECH: BG) 71180-1 Other elements in Urine sediment N NOT INDICATED January 17, 2024 8:38:00 PM UTC (TECH: BG) 33032-5 Microscopic exam [interpretation] of Urine by Cytology N YES January 17, 2024 8:38:00 PM UTC (TECH: BG) 05379-7 Erythrocytes [#/area] in Urine sediment by Microscopy high power field N NONE SEEN NONE SEEN/HPF January 17, 2024 8:38:00 PM UTC (TECH: BG) 5821-4 Leukocytes [#/area] in Urine sediment by Microscopy high power field N 3-5 NONE SEEN/HPF January 17, 2024 8:38:00 PM UTC (TECH: BG) 74998-6 Epithelial cells.squamous [#/area] in Urine sediment by Microscopy high power field N 2-5 NONE SEEN January 17, 2024 8:38:00 PM UTC (TECH: BG) 5769-5 Bacteria [#/area] in Urine sediment by Microscopy high power field N NEGATIVE NEGATIVE January 17, 2024 8:38:00 PM UTC (TECH: BG) 96761-0 Mucus [#/area] in Urine sediment by Microscopy low power field N 3+ NONE SEEN January 17, 2024 8:38:00 PM UTC (TECH: BG) ORDER 600: HCG BETA QUANTITA TIVE (LOINC: 73793-4) ORDER DATE: January 17, 2024 6:52:00 PM UTC Specimen Source: Serum Specimen Type: Serum specime n PERFORMING LAB: [address] [id number] Result Comment: Final Result Date: January 17, 2024 8:05:00 PM UTC (TECH: GS) LOINC TEST FLAG [place] [address]-1 Choriogonadotrop in.beta subunit [Units/volume] in Serum or Plasma H [address] mIU/mL January 17, 2024 8:05:00 PM UTC (TECH: GS) ORDER 800: UDS OXYCODONE SUB OXONE (LOINC: 13242-0) ORDER DATE: January 17, 2024 7:52:00 PM UTC Specimen Source: Urine Specimen Type: Urine specime n PERFORMING LAB: [address] [id number] Result Comment: Final Result Date: January 17, 2024 9:41:00 PM UTC (TECH: RP1) LOINC TEST FLAG [place] [address]-9 Amphetamine [Presenc e] in Urine by Screen method N NEGATIVE NEGATIVE January 17, 2024 9:41:00 PM UTC (TECH: RP1) 77483-2 Barbiturates [Presen ce] in Urine by Screen method N NEGATIVE NEGATIVE January 17, 2024 9:41:00 PM UTC (TECH: RP1) 75669-3 Benzodiazepines [Pre sence] in Urine by Screen method N NEGATIVE NEGATIVE January 17, 2024 9:41:00 PM UTC (TECH: RP1) 07606-6 Tetrahydrocannabinol [Presence] in Urine by Screen method POSITIVE NEGATIVE January 17, 2024 9:41:00 PM UTC (TECH: RP1) 10807-4 Methadone [Presence] in Urine by Screen method N NEGATIVE NEGATIVE January 17, 2024 9:41:00 PM UTC (TECH: RP1) 86916-0 Opiates [Presence] i n Urine by Screen method N NEGATIVE NEGATIVE January 17, 2024 9:41:00 PM UTC (TECH: RP1) 52114-1 Phencyclidine [Prese nce] in Urine by Screen method N NEGATIVE NEGATIVE January 17, 2024 9:41:00 PM UTC (TECH: RP1) 10560-2 Cocaine [Presence] i n Urine by Screen method N NEGATIVE NEGATIVE January 17, 2024 9:41:00 PM UTC (TECH: RP1) 65557-8 Oxycodone [Presence] in Urine N NEGATIVE NEGATIVE January 17, 2024 9:41:00 PM UTC (TECH: RP1) 65564-3 Internal control result N PASS PASS January 17, 2024 9:41:00 PM UTC (TECH: RP1) 3414-0 Buprenorphine [Prese nce] in Urine N NEGATIVE NEGATIVE January 17, 2024 9:41:00 PM UTC (TECH: RP1) 96763-9 Internal control result N PASS PASS January 17, 2024 9:41:00 PM UTC (TECH: RP1) LABORATORY NARRATIVE RESULTS Information is not available RADIOLOGY RESULTS ORDER 700: US OB TRANSVAGINA L (LOINC: 48747-0) ORDER DATE: January 17, 2024 6:55:00 PM UTC PERFORMING LAB: [address] [id number] Final Result Date: January 17, 2024 8:32:20 PM UTC (TECH: [id number]) [address] [address] (Phone) DIAGNOSTIC IMAGING REPORT Patient Name: ROSALIO PANDEY Patient No: [id number] Date of : 2000 Accession No: [id number] Date of Exam: 01/17/2024 Patient Type: Emergency [...] not available MEDICATIONS HOME MEDICATIONS Status [facility] Medication Dose Route Frequency Dates Comments Reported By Updated By Drug Treatment Unknown DISCHARGE MEDICATIONS Status RXNORM ND Medication Dose Route Frequency Dates Comments Physician Updated By No Discharge Medication Info rmation Available INPATIENT MEDICATIONS Status RXNORM [facility] Medication Dose Route Frequency Rat e Quantity Dates Comments Physician Updated By Discont inued [id number] 7428 5613 005 ondansetron (ZOFRAN) INJ 4 MG/2 ML SOLN 4.0 MG IV PUSH ONE TIME ONLY Start: January 17, 2024 7:07:0 0 PM UTC End: January 17, 2024 7:07:0 0 PM [place] ASHTYN SEN INTERFAC ED on January 17, 2024 7:06:00 PM UT Discont inued [id number] 7741 3450 204 metoclopram yanci (REGLAN) 10 MG/2 ML SOLN 10.0 MG IV PUSH ONE TIME ONLY Start: January 17, 2024 7:59:0 0 PM UT End: January 17, 2024 7:59:0 0 PM [facility] on January 17, 2024 7:58:00 PM UT Discont inued [id number] 4932 0701 001 ACETAMINOPH EN 325 MG TABS 325.0 MG BY MOUTH ONE TIME ONLY Start: January 17, 2024 8:01:0 0 PM UTC End: January 17, 2024 8:01:0 0 PM UTC OLIVERIORADHAMARTINEZ MCKINLEY DO INTERFAC ED on January 17, 2024 7:59:00 PM UTC SOCIAL HISTORY SOCIAL HISTORY SNOMED-CT Social History Element Description Effective Dates Offered Cessation Comment UpdatedBy [id number] Smoking Status Unknown If Ever Smoked SOCIAL [...] for each vital sign as of January 21, 2024 3:23:12 PM UTC Loinc Code Vital Sign Activity Date Result Updated By 8310-5 Body temperature January 17, 2024 6:11:49 PM UTC 97.8 [degF] [id number] on January 18, 2024 8:29:25 PM UTC 49248-1 Body weight Measured January 17 8:29:26 PM UTC 58.967 kg (130.0 lb) [id number] on January 18, 2024 8:29:26 PM UTC 8462-4 Diastolic blood pressure January 17, 2024 6:11:49 PM UTC 63.0 mm[Hg] [id number] on January 18, 2024 8:29:25 PM UTC 8867-4 Heart rate January 17, 2024 6:11:49 PM UTC 66 /min [id number] on January 18, 2024 8:29:25 PM UTC 32464-0 Oxygen saturation in Blood January 17, 2024 6:11:49 PM UTC 100.0 % [id number] on January 18, 2024 8:29:25 PM UTC 9279-1 Respiratory rate January 17, 2024 6:11:49 PM UTC 18 /min [id number] on January 18, 2024 8:29:25 PM UTC 8480-6 Systolic blood pressure January 17, 2024 6:11:49 PM UTC 125.0 mm[Hg] [id number] on January 18, 2024 8:29:25 PM [facility] PEDIATRIC GROWTH CHART - VITAL SIGNS [...] VOMITING, Admission January 17, 2024 6:06:[address] [address] Discharge January 17, 2024 8:29:00 PM UT LE FT AGAINST ADVICE OR DISCONTINUED ENCOUNTER DIAGNOSES Notes information is not alysha ilable. Code System Diagnosis Onset Date Diagnosis information is not available. 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 Role on Team Status Start Date End Date Update d By UNKNOWN DR AHUMADA NAME IN PCP normal January 17, 2024 7:56:59 PM UT January 17, 2024 4:00:00 AM UT [id number] on January 17, 2024 7:56:59 PM [facility] ASHTYN SEN DO Referring normal January 17, 2024 7:56:59 PM [facility] January 17, 2024 4:00:00 AM UT [id number] on January 17, 2024 7:56:59 PM [facility] ASHTYN SEN DO Attending normal January 17, 2024 7:56:59 PM [facility] January 17, 2024 4:00:00 AM UT [id number] on January 17, 2024 7:56:59 PM [facility] ASHTYN SEN DO Admitting normal January 17, 2024 7:56:59 PM [facility] January 17, 2024 4:00:00 AM [facility] [id number] on January 17, 2024 7:56:59 PM [facility]
--- OUTSIDE RECORDS SUMMARY | 2024-03-22 17:46 | XMS_ITS | Continuity of Care Document ---
Author Name Unknown Address [address], [place] [id number] Organization [facility] Phone Care Team Providers Care Invoicing Machine Operator Name Role Phone TAYLOR SRIVASTAVA Primary Care AMEYA PANDYA Admitting AMEYA PANDYA Unavailable AMEYA PANDYA Primary Attending ALLERGIES AND ADVERSE REACTIONS ALLERGIES AND ADVERSE REACTIONS Code System Allergy Substance Adverse Reaction Date Reaction (Severity) Comment Status Reported By Updated By No Known Allergies [email or web address] on February 22, 2024 11:30:22 PM UT RESULTS Patient: KATHERIN SANTAMARIA Date of : 2000 9 LABORATORY RESULTS ORDER 100: CBC W/ AUTO DIFF (LOINC: 53426-1) ORDER DATE: February 22, 2024 11:35:00 PM UT Specimen Source: Whole Blood Specimen Type: Whole blood s ample PERFORMING LAB: [address] [id number] Result Comment: Final Result Date: February 23, [...] 23, 2024 12:09:00 AM UTC (TECH: LM) 59910-4 Platelet mean volume [Entitic volume] in Blood by Automated count N 9.4 fL 6.8 fL - 10.2 fL February 23, 2024 12:09:00 AM UTC (TECH: LM) 54192-0 Neutrophils/100 leukocytes in Blood H 89.2 % 50 % - 70 % February 22 12:09:00 AM UTC (TECH: LM) 82557-6 Lymphocytes/100 leukocytes in Blood L 5.5 % 18.0 % - 42.0 % February 22 12:09:00 AM UTC (TECH: LM) 60796-0 Monocytes/100 leukocytes in Blood N 4.6 % 2.0 % - 11.0 % February 22 12:09:00 AM UTC (TECH: LM) 06337-4 Eosinophils/100 leukocytes in Blood L 0.1 % 1.0 % - 3.0 % February 22 12:09:00 AM UTC (TECH: LM) 19928-3 Basophils/100 leukocytes in Blood N 0.2 % 0.0 % - 2.0 % February 22 12:09:00 AM UTC (TECH: LM) 00677-1 Immature granulocytes/100 leukocytes in Blood by Automated count N 0.4 % 0.0 % - 0.8 % February 22 12:09:00 AM UTC (TECH: LM) 95218-0 Nucleated cells [#/volume] in Blood N 0.0 % February 22 12:09:00 AM UTC (TECH: LM) 31800-6 Neutrophils [#/volume] in Blood N 16.80 K/uL February 22 12:09:00 AM UTC (TECH: LM) 66366-9 Lymphocytes [#/volume] in Blood N 1.03 K/uL February 22 12::00 AM UTC (TECH: LM) 98534-8 Monocytes [#/volume] in Blood N 0.86 K/uL February 23, 2024 12:09:00 AM UTC (TECH: LM) 61007-5 Eosinophils [#/volume] in Blood N 0.02 K/uL February 22 12:09:00 AM UTC (TECH: LM) 704-7 Basophils [#/volume] in Blood by Automated count N 0.03 K/uL February 23, 2024 12:09:00 AM UTC (TECH: LM) 23502-5 Immature granulocyte s [#/volume] in Blood N 0.08 K/uL February 22 12:09:00 AM UTC (TECH: LM) 77535-9 Nucleated cells [#/volume] in Blood N 0.00 k/uL February 22 12:09:00 AM UTC (TECH: LM) 66439-5 Manual differential comment [interpretation] in Blood Narrative N YES February 23, 2024 12:09:00 AM UTC (TECH: LM) 45602-8 Neutrophils/100 leukocytes in Blood H 89 % 50 % - 70 % February 22 12:09:00 AM UTC (TECH: LM) 42413-7 Neutrophils.band form/100 leukocytes in Blood N 1 % 0 % - 5 % February 23, 2024 12:09:00 AM UT (TECH: LM) 41669-3 Lymphocytes/100 leukocytes in Blood L 8 % 18.0 % - 42.0 % February 22 12:09:00 AM [facility] (TECH: LM) 73239-8 Monocytes/100 leukocytes in Blood N 2 % 0.0 % - 12.0 % February 22 12:09:00 AM UT (TECH: LM) ORDER 200: COMP METABOLIC PA FLROES (LOINC: 71489-6) ORDER DATE: February 22, 2024 11:35:00 PM UT Specimen Source: Serum/Plasm a Specimen Type: Acellular blo od (serum or plasma) specimen PERFORMING LAB: [address] [id number] Result Comment: Final Result Date: February 23, 2024 12:10:00 AM [facility] (TECH: SLC) LOINC TEST FLAG RESULT REFERENCE RANGE UPDA LUCIAN BY 2951-2 Sodium [Moles/volume ] in Serum or Plasma N 138 mmol/L 137 mmol/L - 147 mmol/L February 23, 2024 12:10:00 AM UT (TECH: SLC) 2823-3 Potassium [Moles/volume] in Serum or Plasma N 3.9 mmol/L 3.5 mmol/L - 5.1 mmol/L February 23, 2024 12:10:00 AM [facility] (TECH: SLC) 2075-0 Chloride [Moles/volu me] in Serum or Plasma N 105 mmol/L 98 mmol/L - 110 mmol/L February 23, 2024 12:10:00 AM UT (TECH: SLC) 8-9 Carbon dioxide, tota l [Moles/volume] in Serum or Plasma L 16 mmol/L 21 mmol/L - 30 mmol/L February 23, 2024 12:10:00 AM UT (TECH: SLC) 13788-6 Anion gap in Serum o r Plasma H 17 mmol/L 6 mmol/L - 14 mmol/L February 23, 2024 12:10:00 AM [facility] (TECH: SLC) 2345-7 Glucose [Mass/volume ] in Serum or Plasma N 94 mg/dL 70 mg/dL - 115 mg/dL February 23, 2024 12:10:00 AM [facility] ([employer]) 3094-0 Urea nitrogen [Mass/volume] in Serum or Plasma N 8 mg/dL 7 mg/dL - 17 mg/dL February 23, 2024 12:10:00 AM [facility] ([employer]) 2160-0 Creatinine [Mass/volume] in Serum or Plasma N 0.6 mg/dL 0.5 mg/dL - 1.5 mg/dL February 23, 2024 12:10:00 AM [facility] ([employer]) 3097-3 Urea nitrogen/Creatinine [Mass Ratio] in Serum or Plasma N 13 RATIO 10 RATIO - 20 RATIO February 23, 2024 12:10:00 AM [facility] ([employer]) 92342-6 Glomerular filtratio n rate/1.73 sq M.predicted N 134 mL/min >60 February 23, 2024 12:10:00 AM [facility] ([employer]) 78931-0 Osmolality of Serum or Plasma by calculation N 285 mOsmol/Kg 275 mOsmol/Kg - 301 mOsmol/Kg February 23, 2024 12:10:00 AM [facility] ([employer]) 2885-2 Protein [Mass/volume ] in Serum or Plasma H 8.5 g/dL 6.2 g/dL - 8.2 g/dL February 23, 2024 12:10:00 AM [facility] ([employer]) 1751-7 Albumin [Mass/volume ] in Serum or Plasma H 5.3 g/dL 3.5 g/dL - 5.0 g/dL February 23, 2024 12:10:00 AM [facility] ([employer]) 21886-8 Calcium [Mass/volume ] in Serum or Plasma N 10.0 mg/dL 8.5 mg/dL - 10.8 mg/dL February 23, 2024 12:10:00 AM [facility] ([employer]) 1975-2 Bilirubin.total [Mass/volume] in Serum or Plasma H 1.7 mg/dL 0.2 mg/dL - 1.3 mg/dL February 23, 2024 12:10:00 AM [facility] ([employer]) 1920-8 Aspartate aminotransferase [Enzymatic activity/volume] in Serum or Plasma N 26 IU/L 14 IU/L - 36 IU/L February 23, 2024 12:10:00 AM [facility] ([employer]) 1742-6 Alanine aminotransferase [Enzymatic activity/volume] in Serum or Plasma N 18 IU/L 0 IU/L - 35 IU/L February 23, 2024 12:10:00 AM UTC (TECH: Habeas) 28627-4 Alkaline phosphatase.bile [Enzymatic activity/volume] in Serum or Plasma N 68 IU/L 38 IU/L - 126 IU/L February 23, 2024 12:10:00 AM UTC (TECH: Habeas) ORDER 300: MAGNESIUM (LOINC: 74192-3) ORDER DATE: February 22, 2024 11:35:00 PM UTC Specimen Source: Serum/Plasm a Specimen Type: Acellular blo od (serum or plasma) specimen PERFORMING LAB: [address] [id number] Result Comment: Final Result Date: February 23, 2024 12:10:00 AM UT (TECH: Habeas) LOINC TEST FLAG [place]ULT [place] [address]-4 Magnesium [Mass/volume] in Serum or Plasma N 2.0 mg/dL 1.6 mg/dL - 2.4 mg/dL February 23, 2024 12:10:00 AM UTC (TECH: Habeas) ORDER 400: UDS OXYCODONE SUB OXONE (LOINC: 79225-0) ORDER DATE: February 22, 2024 11:35:00 PM UTC Specimen Source: Urine Specimen Type: Urine specime n PERFORMING LAB: [address] [id number] Result Comment: Final Result Date: February 23, 2024 12:21:00 AM UT (TECH: Habeas) LOINC TEST FLAG [place] [address]-3 Amphetamine [Presenc e] in Urine by Screen method N NEGATIVE NEGATIVE February 23, 2024 12:21:00 AM UTC (TECH: Habeas) 79397-9 Barbiturates [Presen ce] in Urine by Screen method N NEGATIVE NEGATIVE February 23, 2024 12:21:00 AM UTC (TECH: Habeas) 59792-1 Benzodiazepines [Pre sence] in Urine by Screen method N NEGATIVE NEGATIVE February 23, 2024 12:21:00 AM UTC (TECH: Habeas) 35248-3 Tetrahydrocannabinol [Presence] in Urine by Screen method POSITIVE NEGATIVE February 23, 2024 12:21:00 AM UTC (TECH: Habeas) 20993-4 Methadone [Presence] in Urine by Screen method N NEGATIVE NEGATIVE February 23, 2024 12:21:00 AM UTC (TECH: SLC) 20865-0 Opiates [Presence] i n Urine by Screen method N NEGATIVE NEGATIVE February 23, 2024 12:21:00 AM UTC (TECH: SLC) 63989-6 Phencyclidine [Prese nce] in Urine by Screen method N NEGATIVE NEGATIVE February 23, 2024 12:21:00 AM UTC (TECH: SLC) 27518-5 Cocaine [Presence] i n Urine by Screen method N NEGATIVE NEGATIVE February 23, 2024 12:21:00 AM UTC (TECH: SLC) 71998-4 Oxycodone [Presence] in Urine N NEGATIVE NEGATIVE February 23, 2024 12:21:00 AM UTC (TECH: SLC) 80058-1 Internal control result N PASS PASS February 23, 2024 12:21:00 AM UTC (TECH: SLC) 3414-0 Buprenorphine [Prese nce] in Urine N NEGATIVE NEGATIVE February 23, 2024 12:21:00 AM UTC (TECH: SLC) 79935-5 Internal control result N PASS PASS February 23, 2024 12:21:00 AM UTC (TECH: SLC) ORDER 500: UA WITH CULTURE I F INDICATED (LOINC: 65731-9) ORDER DATE: February 22, 2024 11:35:00 PM UTC Specimen Source: Urine Specimen Type: Urine specime n PERFORMING LAB: [address] [id number] Result Comment: Final Result Date: February 23, [...] February 22 12:01:00 AM UTC (TECH: RP1) 43443-9 Bilirubin.total [Mass/volume] in Urine by Automated test strip N NEGATIVE NEGATIVE January 12:01:00 AM UTC (TECH: RP1) 5797-6 Ketones [Mass/volume ] in Urine by Test strip N 3+ NEGATIVE February 22 12:01:00 AM UTC (TECH: RP1) 2965-2 Specific gravity of Urine H 1.030 1.005 - 1.025 February 23, 2024 12:01:00 AM UTC (TECH: RP1) 37109-6 Erythrocytes [#/volu me] in Urine by Automated test strip N NEGATIVE NEGATIVE February 23, 2024 12:01:00 AM UTC (TECH: RP1) 54426-4 pH of Urine by Autom ated test strip N 6.0 5.0 - 8.0 February 23, 2024 12:01:00 AM UTC (TECH: RP1) 66889-0 Protein [Presence] i n Urine by Test strip N 2+ NEGATIVE February 22 12:01:00 AM UTC (TECH: RP1) 57366-6 Urobilinogen [Mass/volume] in Urine by Automated test strip N 0.2 E.U./dL 0.0 - 0.2 January 12:01:00 AM UTC (TECH: RP1) 38413-2 Nitrate [Presence] i n Urine N NEGATIVE NEGATIVE February 23, 2024 12:01:00 AM UTC (TECH: RP1) 27387-4 Leukocytes [#/volume ] in Urine by Test strip N NEGATIVE NEGATIVE February 22 12:01:00 AM UTC (TECH: RP1) 22266-3 Other elements in Ur ine sediment N NOT INDICATED February 23, 2024 12:01:00 AM UTC (TECH: RP1) 81283-8 Microscopic exam [interpretation] of Urine by Cytology N YES February 23, 2024 12:01:00 AM UTC (TECH: RP1) 67007-8 Erythrocytes [#/area ] in Urine sediment by Microscopy high power field N NONE SEEN NONE SEEN/HPF February 23, 2024 12:01:00 AM UTC (TECH: RP1) 5821-4 Leukocytes [#/area] in Urine sediment by Microscopy high power field N NONE SEEN NONE SEEN/HPF February 23, 2024 12:01:00 AM UTC (TECH: RP1) 34702-8 Epithelial cells.squamous [#/area] in Urine sediment by Microscopy high power field N 2-5 NONE SEEN February 23, 2024 12:01:00 AM UTC (TECH: RP1) 5769-5 Bacteria [#/area] in Urine sediment by Microscopy high power field N TRACE NEGATIVE February 23, 2024 12:01:00 AM UTC (TECH: RP1) 04344-2 Mucus [#/area] in Ur ine sediment by [...] Dates Comments Physician Updated By Discont inued [id number] metoclopram yanci (REGLAN) 10 MG/2 ML SOLN 10.0 MG IV PUSH ONE TIME ONLY Start: February 22, 2024 11:42: 00 PM UTC End: February 22, 2024 11:42: 00 PM UT MUMTAZ HOU MD INTERFAC ED on February 22, 2024 11:40:00 PM UT Discont inued [id number] pantoprazol e (PROTONIX) 40 MG SOLR 40.0 MG IV PUSH ONE TIME ONLY Start: February 23, 2024 12:32: 00 AM UTC End: February 23, 2024 12:32: 00 AM UT MUMTAZ HOU MD INTERFAC ED on February 23, 2024 12:31:00 AM UT Discont inued [id number] 5613 005 ondansetron (ZOFRAN) INJ 4 MG/2 ML SOLN 4.0 MG IV PUSH ONE TIME ONLY Start: February 23, 2024 1:25:0 0 AM UTC End: February 23, 2024 1:25:0 0 AM UT MUMTAZ HOU MD INTERFAC ED on February 23, 2024 1:23:00 AM UT SOCIAL HISTORY SOCIAL HISTORY SNOMED-CT Social History Element Description Effective Dates Offered Cessation Comment UpdatedBy [id number] Smoking Status Unknown If Ever Smoked SOCIAL [...] for each vital sign as of February 23, 2024 2:33:03 AM [facility] Loinc Code Vital Sign Activity Date Result Updated By 8462-4 Diastolic blood pressure February 23, 2024 1:26:00 AM UT 76.0 mm[Hg] [id number] on February 23, 2024 1:33:27 AM UT 8867-4 Heart rate February 23, 2024 1:26:00 AM UT 69 /min [id number] on February 23, 2024 1:33:27 [place] [address]-7 Oxygen saturation in Blood February 23, 2024 1:26:00 AM UT 100.0 % [id number] on February 23, 2024 1:33:27 AM UT 9279-1 Respiratory rate February 22, 2024 11:28:00 PM UTC 18 /min [id number] on February 22, 2024 11:30:08 PM UT 8480-6 Systolic blood pressure January 1:26:00 AM UTC 132.0 mm[Hg] [id number] on February 23, 2024 1:33:27 AM [facility] PEDIATRIC GROWTH CHART - VITAL SIGNS This [...] N/V/D Admission February 22, 2024 11:20:00 PM [place] [id number] Discharge February 23, 2024 1:33:00 AM UT DI SCHARGED TO HOME OR SELF CARE ENCOUNTER DIAGNOSES Notes information is not alysha ilable. Code System Diagnosis Onset Date Diagnosis information is not available. ABSTRACT DIAGNOSES Code System Diagnosis Updated By Abstract Diagnosis informati on is not available. CARE TEAM Care Invoicing Machine Operator Role TAYLOR SRIVASTAVA Primary Care AMEYA PANDYA Admitting AMEYA PANDYA Referring AMEYA PANDYA Primary Attending CARE TEAM CARE wild life manager Role on Team Status Start Date End Date Update d By MUMTAZ HOU MD Referring normal February 22, 12:09:43 AM [facility] February 23, 2024 1:33:00 AM [facility] [id number] on February 23, 2024 12:09:43 AM [facility] MUMTAZ HOU MD Attending normal February 22 12:09:43 AM [facility] February 23, 2024 1:33:00 AM [facility] [id number] on February 23, 2024 12:09:43 AM [facility] MUMTAZ HOU MD Admitting normal February 22 12:09:43 AM [facility] February 23, 2024 1:33:00 AM [facility] [id number] on February 23, 2024 12:09:43 AM [facility] CAROLA Syed PCP normal February 22, 2024 11:20:38 PM [facility] February 23, 2024 1:33:00 AM [facility] [id number] on February 23, 2024 12:09:43 AM [facility]
--- OUTSIDE RECORDS SUMMARY | 2024-03-22 17:46 | XMS_ITS | Continuity of Care Document ---
Author Name Unknown Address [address], [place] [id number] Organization [facility] Phone Care Team Providers Care Swimming Professor Name Role Phone TAYLOR SRIVASTAVA Primary Care SATINDER MIRANDA Primary Attending SATINDER MIRANDA Admitting SATINDER MIRANDA Unavailable ALLERGIES AND ADVERSE REACTIONS ALLERGIES AND ADVERSE REACTIONS Code System Allergy Substance Adverse Reaction Date Reaction (Severity) Comment Status Reported By Updated By No Known Allergies [email or web address] on February 22, 2024 11:30:22 PM UTC RESULTS Patient: KATHERIN SANTAMARIA Date of : 2000 9 LABORATORY RESULTS ORDER 100: CBC W/ AUTO DIFF (LOINC: 38945-0) ORDER DATE: February 21, 2024 5:10:00 PM UTC Specimen Source: Whole Blood Specimen Type: Whole blood s ample PERFORMING LAB: [address] [id number] Result Comment: Final Result Date: February 21, [...] February 21, 2024 5:44:00 PM UTC (TECH: [email or web address]) 787-2 Erythrocyte mean corpuscular volume [Entitic volume] by Automated count N 86.8 fL 80.0 fL - 100.0 fL February 21, 2024 5:44:00 PM UTC (TECH: [email or web address]) 785-6 Erythrocyte mean corpuscular hemoglobin [Entitic mass] by Automated count N 30.2 pg 26.0 pg - 32.0 pg February 21, 2024 5:44:00 PM UTC (TECH: [email or web address]) 786-4 Erythrocyte mean corpuscular hemoglobin concentration [Mass/volume] by Automated count N 34.8 g/dL 32.0 g/dL - 36.0 g/dL February 21, 2024 5:44:00 PM UTC (TECH: [email or web address]) 788-0 Erythrocyte distribution width [Ratio] by Automated count N 12.3 % 11.5 % - 14.5 % February 21, 2024 5:44:00 PM UTC (TECH: [email or web address]) 777-3 Platelets [#/volume] in Blood by Automated count N 324 K/uL 142 K/uL - 424 K/uL February 21, 2024 5:44:00 PM UTC (TECH: [email or web address]) 20305-9 Platelet mean volume [Entitic volume] in Blood by Automated count N 9.5 fL 6.8 fL - 10.2 fL February 21, 2024 5:44:00 PM UTC (TECH: [email or web address]) 01127-2 Neutrophils/100 leukocytes in Blood H 93.7 % 50 % - 70 % February 20 5:44:00 PM UTC (TECH: [email or web address]) 75498-8 Lymphocytes/100 leukocytes in Blood L 3.7 % 18.0 % - 42.0 % February 20 5:44:00 PM UTC (TECH: [email or web address]) 98604-2 Monocytes/100 leukocytes in Blood N 2.1 % 2.0 % - 11.0 % February 20 5:44:00 PM UTC (TECH: [email or web address]) 77471-1 Eosinophils/100 leukocytes in Blood L 0.0 % 1.0 % - 3.0 % February 20 5:44:00 PM UTC (TECH: GS) 59649-1 Basophils/100 leukocytes in Blood N 0.2 % 0.0 % - 2.0 % February 20 5:44:00 PM UTC (TECH: GS) 33399-6 Immature granulocytes/100 leukocytes in Blood by Automated count N 0.3 % 0.0 % - 0.8 % February 20 5:44:00 PM UTC (TECH: GS) 02257-6 Nucleated cells [#/volume] in Blood N 0.0 % February 20 5:44:00 PM UTC (TECH: GS) 59170-5 Neutrophils [#/volume] in Blood N 13.43 K/uL February 20 5:44:00 PM UTC (TECH: GS) 75264-2 Lymphocytes [#/volume] in Blood N 0.53 K/uL February 20 5:44:00 PM UTC (TECH: GS) 82246-5 Monocytes [#/volume] in Blood N 0.30 K/uL February 21, 2024 5:44:00 PM UTC (TECH: GS) 87432-3 Eosinophils [#/volume] in Blood N 0.00 K/uL February 20 5:44:00 PM UTC (TECH: GS) 704-7 Basophils [#/volume] in Blood by Automated count N 0.03 K/uL February 21, 2024 5:44:00 PM UTC (TECH: GS) 89302-6 Immature granulocyte s [#/volume] in Blood N 0.05 K/uL February 20 5:44:00 PM UTC (TECH: GS) 45399-7 Nucleated cells [#/volume] in Blood N 0.00 k/uL February 20 5:44:00 PM UTC (TECH: GS) 76482-1 Manual differential comment [interpretation] in Blood Narrative N YES February 21, 2024 5:44:00 PM UTC (TECH: GS) ORDER 200: COMP METABOLIC PA FLORES (LOINC: 28404-3) ORDER DATE: February 21, 2024 5:10:00 PM UTC Specimen Source: Serum Specimen Type: Serum specime n PERFORMING LAB: [address] [id number] Result Comment: Final Result Date: February 21, 2024 5:52:00 PM UT (TECH: [employer]) LOINC TEST FLAG RESULT REFERENCE RANGE UPDA LUCIAN BY 2951-2 Sodium [Moles/volume ] in Serum or Plasma N 142 mmol/L 137 mmol/L - 147 mmol/L February 21, 2024 5:52:00 PM UT (TECH: CB) 2823-3 Potassium [Moles/volume] in Serum or Plasma N 3.6 mmol/L 3.5 mmol/L - 5.1 mmol/L February 21, 2024 5:52:00 PM UT (TECH: [employer]) 2075-0 Chloride [Moles/volu me] in Serum or Plasma N 109 mmol/L 98 mmol/L - 110 mmol/L February 21, 2024 5:52:00 PM UT (TECH: [employer]) 8-9 Carbon dioxide, tota l [Moles/volume] in Serum or Plasma N 22 mmol/L 21 mmol/L - 30 mmol/L February 21, 2024 5:52:00 PM UT (TECH: [employer]) 43363-5 Anion gap in Serum o r Plasma N 11 mmol/L 6 mmol/L - 14 mmol/L February 21, 2024 5:52:00 PM UT (TECH: [employer]) 2345-7 Glucose [Mass/volume ] in Serum or Plasma H 150 mg/dL 70 mg/dL - 115 mg/dL February 21, 2024 5:52:00 PM UT (TECH: [employer]) 3094-0 Urea nitrogen [Mass/volume] in Serum or Plasma L 5 mg/dL 7 mg/dL - 17 mg/dL February 21, 2024 5:52:00 PM UT (TECH: [employer]) 2160-0 Creatinine [Mass/volume] in Serum or Plasma N 0.6 mg/dL 0.5 mg/dL - 1.5 mg/dL February 21, 2024 5:52:00 PM UT (TECH: [employer]) 3097-3 Urea nitrogen/Creatinine [Mass Ratio] in Serum or Plasma L 8 RATIO 10 RATIO - 20 RATIO February 21, 2024 5:52:00 PM UT (TECH: [employer]) 31199-1 Glomerular filtratio n rate/1.73 sq M.predicted N 134 mL/min >60 February 21, 2024 5:52:00 PM UT (TECH: [employer]) 12450-3 Osmolality of Serum or Plasma by calculation N 295 mOsmol/Kg 275 mOsmol/Kg - 301 mOsmol/Kg February 21, 2024 5:52:00 PM UT (TECH: [employer]) 2885-2 Protein [Mass/volume ] in Serum or Plasma N 8.2 g/dL 6.2 g/dL - 8.2 g/dL February 21, 2024 5:52:00 PM UT (TECH: [employer]) 1751-7 Albumin [Mass/volume ] in Serum or Plasma N 5.0 g/dL 3.5 g/dL - 5.0 g/dL February 21, 2024 5:52:00 PM UT (TECH: [employer]) 37711-9 Calcium [Mass/volume ] in Serum or Plasma N 9.8 mg/dL 8.5 mg/dL - 10.8 mg/dL February 21, 2024 5:52:00 PM UT (TECH: [employer]) 1975-2 Bilirubin.total [Mass/volume] in Serum or Plasma H 1.5 mg/dL 0.2 mg/dL - 1.3 mg/dL February 21, 2024 5:52:00 PM UT (TECH: [employer]) 1920-8 Aspartate aminotransferase [Enzymatic activity/volume] in Serum or Plasma N 21 IU/L 14 IU/L - 36 IU/L February 21, 2024 5:52:00 PM UT (TECH: [employer]) 1742-6 Alanine aminotransferase [Enzymatic activity/volume] in Serum or Plasma N 17 IU/L 0 IU/L - 35 IU/L February 21, 2024 5:52:00 PM [facility] (TECH: [employer]) 96221-8 Alkaline phosphatase.bile [Enzymatic activity/volume] in Serum or Plasma N 75 IU/L 38 IU/L - 126 IU/L February 21, 2024 5:52:00 PM UT (TECH: [employer]) ORDER 300: LIPASE (LOINC: 30 40-3) ORDER DATE: February 21, 2024 5:10:00 PM UT Specimen Source: Serum Specimen Type: Serum specime n PERFORMING LAB: [address] [id number] Result Comment: Final Result Date: February 21, 2024 5:51:00 PM UTC (TECH: [facility]) LOINC TEST FLAG RESULT REFERENCE RANGE UPDA LUCIAN BY 3040-3 Lipase [Enzymatic activity/volume] in Serum or Plasma N 47 U/L 23 U/L - 300 U/L February 21, 2024 5:51:00 PM UTC (TECH: [facility]) ORDER 400: UA WITH CULTURE I F INDICATED (LOINC: 17920-3) ORDER DATE: February 21, 2024 5:10:00 PM UTC Specimen Source: Urine Specimen Type: Urine specime n PERFORMING LAB: [address] [place] [id number] Result Comment: Final Result Date: February 21, 2024 8:17:00 PM UTC (TECH: GS) LOINC TEST FLAG RESULT REFERENCE RANGE UPDA LUCIAN BY 5778-6 Color of Urine N YELLOW YELLOW February 21, 2024 8:17:00 PM UTC (TECH: GS) 5767-9 Appearance of Urine N CLEAR CLEAR February 21, 2024 8:17:00 PM UTC (TECH: GS) 5792-7 Glucose [Mass/volume] in Urine by Test strip N NEGATIVE NEGATIVE February 21, 2024 8:17:00 PM UTC (TECH: GS) 47918-1 Bilirubin.total [Mass/volume] in Urine by Automated test strip N NEGATIVE NEGATIVE February 21, 2024 8:17:00 PM UTC (TECH: GS) 5797-6 Ketones [Mass/volume] in Urine by Test strip N 3+ NEGATIVE February 21, 2024 8:17:00 PM UTC (TECH: GS) 2965-2 Specific gravity of Urine N 1.020 1.005 - 1.025 February 21, 2024 8:17:00 PM UTC (TECH: GS) 21574-5 Erythrocytes [#/volume] in Urine by Automated test strip N NEGATIVE NEGATIVE February 21, 2024 8:17:00 PM UTC (TECH: GS) 92481-8 pH of Urine by Automated test strip N 6.5 5.0 - 8.0 February 21, 2024 8:17:00 PM UTC (TECH: GS) 25704-3 Protein [Presence] in Urine by Test strip N TRACE NEGATIVE February 21, 2024 8:17:00 PM UTC (TECH: GS) 82297-4 Urobilinogen [Mass/volume] in Urine by Automated test strip N 0.2 E.U./dL 0.0 - 0.2 February 21, 2024 8:17:00 PM UTC (TECH: GS) 20207-2 Nitrate [Presence] in Urine N NEGATIVE NEGATIVE February 21, 2024 8:17:00 PM UTC (TECH: GS) 39128-0 Leukocytes [#/volume] in Urine by Test strip N NEGATIVE NEGATIVE February 21, 2024 8:17:00 PM UTC (TECH: GS) 47434-8 Other elements in Urine sediment N NOT INDICATED February 21, 2024 8:17:00 PM UTC (TECH: GS) 63193-3 Microscopic exam [interpretation] of Urine by Cytology N NO February 21, 2024 8:17:00 PM UTC (TECH: GS) ORDER 500: HCG BETA QUANTITA TIVE (LOINC: 18299-4) ORDER DATE: February 21, 2024 5:10:00 PM UTC Specimen Source: Serum Specimen Type: Serum specime n PERFORMING LAB: [address] [id number] Result Comment: Final Result Date: February 22, 2024 2:05:00 AM UTC (TECH: KF[employer]) LOINC TEST FLAG [place] [address]-9 Choriogonadotropin.b et a subunit [Units/volume] in Serum or Plasma H 12089 mIU/mL February 22, 2024 2:05:00 AM UTC (TECH: KF2) LABORATORY NARRATIVE RESULTS Information is not available RADIOLOGY RESULTS ORDER 600: US OB TRANSVAGINA L (LOINC: 14538-2) ORDER DATE: February 21, 2024 5:27:00 PM UTC PERFORMING LAB: [address] [id number] Final Result Date: February 21, 2024 6:46:50 PM UTC (TECH: [id number]) [address] [address] (Phone) IMAGING REPORT Name: ROSALIO PANDEY : [...] Velázquez MD 02/21/2024 02:46 PM EDT Principal Predator Control Trapper Name: Jaden Velázquez Provider ID: [id number] PAGE 2 OF 2 PATHOLOGY NARRATIVE RESULTS Information is not available MICROBIOLOGY RESULTS No Micro Labs/Results Exist for Patient BLOOD ADMIN RESULTS Information is not available MEDICATIONS HOME MEDICATIONS Status RXNORM NDC Medication Dose Route Frequency Dates Comments Reported By Updated By Active [id number] Bonjesta 20-20 mg tablet,IR & delayed release,bip hasic 1.0 TAB PO DAILY Last Dose: Last Dose Unknown; [email or web address] on February 21, 2024 5:52:50 PM UT DISCHARGE MEDICATIONS Status RXNORM NDC Medication Dose Route Frequency Dates Comments Physician Updated By No Discharge Medication Info rmation Available INPATIENT MEDICATIONS Status RXNORM NDC Medication Dose Route Frequency Rat e Quantity Dates Comments Physician Updated By Discont inued [id number] 5613 005 ondansetron (ZOFRAN) INJ 4 MG/2 ML SOLN 4.0 MG IV PUSH ONE TIME ONLY Start: February 21, 2024 5:35:0 0 PM UTC End: February 21, 2024 5:35:0 0 PM UTC RUBEN RAJAN MD INTERFAC ED on February 21, 2024 5:34:00 PM UTC Discont inued [id number] 3450 204 metoclopram yanci (REGLAN) 10 MG/2 ML SOLN 10.0 MG IV PUSH ONE TIME ONLY Start: February 21, 2024 6:32:0 0 PM UTC End: February 21, 2024 6:32:0 0 PM UTC RUBEN RAJAN MD INTERFAC ED on February 21, 2024 6:31:00 PM UTC Discont inued 0090 4673 061 ACETAMINOPH EN EXTRA STRENGTH 500 MG TABS 500.0 MG BY MOUTH ONE TIME ONLY Start: February 21, 2024 7:14:0 0 PM UTC End: February 21, 2024 7:14:0 0 PM UTC RUBEN RAJAN MD INTERFAC ED on February 21, 2024 7:13:00 PM UTC Discont inued [id number] 9972 1092 821 promethazin e (PHENERGAN) 25 MG/ML SOLN 25.0 MG IV PUSH ONE TIME ONLY Start: February 21, 2024 7:14:0 0 PM UTC End: February 21, 2024 7:14:0 0 PM UTC RUBEN RAJNA MD INTERFAC ED on February 21, 2024 7:13:00 PM UTC Discont inued [id number] 1352 3450 204 metoclopram yanci (REGLAN) 10 MG/2 ML SOLN 10.0 MG IV PUSH ONE TIME ONLY Start: February 21, 2024 8:41:0 0 PM UTC End: February 21, 2024 8:41:0 0 PM UTC RUBEN RAJAN MD INTERFAC ED on February 21, 2024 8:40:00 PM UTC SOCIAL HISTORY SOCIAL HISTORY SNOMED-CT Social History Element Description Effective Dates Offered Cessation Comment UpdatedBy [id number] Smoking Status Unknown If Ever Smoked SOCIAL [...] for each vital sign as of February 24, 2024 7:17:02 PM UT Loinc Code Vital Sign Activity Date Result Updated By 8310-5 Body temperature February 21, 2024 5:09:04 PM UTC 97.5 [degF] [id number] on February 22, 2024 9:57:[place] [address]-5 Body weight Measured February 21 9:57:35 PM UTC 61.235 kg (135.0 lb) [id number] on February 22, 2024 9:57:35 PM UT 8462-4 Diastolic blood pressure February 21, 2024 9:00:00 PM UTC 74.0 mm[Hg] [id number] on February 22, 2024 9:57:39 PM UTC 8867-4 Heart rate February 21, 2024 9:00:00 PM UTC 87 /min [id number] on February 22, 2024 9:57:39 PM UTC 76739-1 Oxygen saturation in Blood February 21, 2024 9:00:00 PM UTC 100.0 % [id number] on February 22, 2024 9:57:39 PM UTC 9279-1 Respiratory rate February 21, 2024 9:00:00 PM UTC 17 /min [id number] on February 22, 2024 9:57:39 PM UTC 8480-6 Systolic blood pressure February 21, 2024 9:00:00 PM UTC 119.0 mm[Hg] [id number] on February 22, 2024 9:57:39 PM UTC PEDIATRIC GROWTH CHART - VITAL SIGNS This [...] G Admission February 21, 2024 5:04:00 PM UTC CL [address] [address] Discharge February 21, 2024 9:57:00 PM UTC DI SCHARGED TO HOME OR SELF CARE ENCOUNTER DIAGNOSES Notes information is not alysha ilable. Code System Diagnosis Onset Date Diagnosis information is not available. ABSTRACT DIAGNOSES Code System Diagnosis Updated By R10.9 ICD10 UNSPECIFIED ABDOMINAL PAIN F PH1307 on February 24, 2024 7:15:56 PM UTC R11.10 ICD10 VOMITING, UNSPECIFIED CRL464 3 on February 24, 2024 7:15:56 PM UTC O26.91 ICD10 RELATE D CONDITIONS, UNSPECIFIED, FIRST TRIMESTER [id number] on February 24, 2024 7:15:56 PM UTC Z3A.11 ICD10 11 WEEKS GESTATION OF PREGNA NCY [id number] on February 24, 2024 7:15:56 PM UTC R11.10 ICD10 VOMITING, UNSPECIFIED VSJ903 3 on February 24, 2024 7:15:56 PM UTC CARE TEAM Care Swimming Professor Role TAYLOR SRIVASTAVA Primary Care SATINDER MIRANDA Primary Attending SATINDER MIRANDA Admitting SATINDER MIRANDA Referring CARE TEAM CARE layboy tender Role on Team Status Start Date End Date Update d By CAROLA Syed PCP normal February 21, 2024 6:14:15 PM UTC February 21, 2024 4:00:00 AM UTC [id number] on February 21, 2024 6:14:15 PM UTC RUBEN RAJAN MD Referring normal February 20 6:14:14 PM UTC February 21, 2024 4:00:00 AM UTC [id number] on February 21, 2024 6:14:15 PM UTC RUBEN RAJAN MD Attending normal February 20 6:14:14 PM UTC February 21, 2024 4:00:00 AM UTC [id number] on February 21, 2024 6:14:15 PM UTC RUBEN RAJAN MD Admitting normal February 20 6:14:14 PM UTC February 21, 2024 4:00:00 AM UTC [id number] on February 21, 2024 6:14:[address] AHUMADA NAME IN PCP normal February 21, 2024 5:04:23 PM UTC February 21, 2024 6:14:15 PM UTC [id number] on February 21, 2024 6:14:15 PM UTC
[2024-03-22] MEDS: DOXYLAMINE 10MG/PYRIDOXINE 10MG TABLET 2 TAB PO (20:13)
[2024-03-22 20:15] VITALS: BP 104/54; PULSE 79; RESP 17; TEMP 36.8; O2SAT 97
[2024-03-23] MEDS: LACTATED RINGERS 1000ML 1,000 ML 80 ML IV ×2 (01:12→22:02)
[2024-03-23] MEDS: ONDANSETRON 4MG/2ML VIAL 4 MG IV ×3 (04:41→23:09)
[2024-03-23 04:45] VITALS: BP 96/47; PULSE 18; RESP 18; TEMP 36.8; O2SAT 97
[2024-03-23] MEDS: BUTORPHANOL TARTRATE 2 MG/ML VIAL 1 MG IV ×4 (07:43→19:47)
[2024-03-23 09:20] VITALS: BP 120/73; PULSE 73; RESP 16; TEMP 36.8; O2SAT 97
[2024-03-23] MEDS: DOXYLAMINE 10MG/PYRIDOXINE 10MG TABLET 1 TAB PO ×2 (09:59→13:55)
[2024-03-23] MEDS: MVI, ADULT NO.1 WITH VIT K 10 ML, THIAMINE HCL 100 MG, MAGNESIUM SULFATE 2 GM in LACTAT... 125 ML IV (09:59)
[2024-03-23 16:30] VITALS: BP 121/72; PULSE 75; RESP 18; TEMP 36.6; O2SAT 100
--- NOTE | 2024-03-23 19:07 | PC.NURSE ---
All charting and care completed by WARD Huber was completed under my direct supervision
[2024-03-23] MEDS: PROCHLORPERAZINE 25MG SUPP 25 MG RC (19:49)
[2024-03-23 20:07] VITALS: BP 137/82; PULSE 80; RESP 20; TEMP 36.8; O2SAT 99
[2024-03-23] MEDS: DOXYLAMINE 10MG/PYRIDOXINE 10MG TABLET 2 TAB PO (21:07)
[2024-03-24] MEDS: BUTORPHANOL TARTRATE 2 MG/ML VIAL 1 MG IV ×2 (01:05→05:03)
[2024-03-24 04:50] VITALS: BP 105/78; PULSE 64; RESP 18; TEMP 36.7; O2SAT 100
[2024-03-24] MEDS: ONDANSETRON 4MG/2ML VIAL 4 MG IV (04:56)
[2024-03-24 08:36] VITALS: BMI 23.4
--- NOTE | 2024-03-24 08:42 | P.PN_ITS ---
Subjective *Date: 03/24/24 *Time: 12:00 Interval history: She continues to have nausea and vomiting. She also has pain in her right upper quadrant. She has had her gallbladder removed. She tried taking a piece of toast this morning and had severe right upper quadrant pain. She tells me that she is no longer smoking marijuana and has not had any marijuana for over a month. Marijuana was still however positive on her urine drug screen. We are awaiting the results of this. It was sent out for a quantity. She has been able to take some liquids and but otherwise feels nauseous and sick all the time. Medical Exam Vital signs and Labs for Last 24 Hours: Vital Signs Temp Pulse Resp BP Pulse Ox O2 Del Method 03/24/24 04:50 98.1 F 64 18 105/78 L 100 Room Air 03/23/24 20:07 98.2 F 80 20 137/82 99 Room Air 03/23/24 16:30 97.8 F 75 18 121/72 100 Room Air 03/23/24 09:20 98.2 F 73 16 120/73 97 Room Air Intake and Output 03/23/24 03/24/24 03/24/24 19:59 03:59 11:59 Intake Total 1004 / 1004 Balance 1004 / 1004 Intake: Intake, Total IV Amount 1004 / 1004 Mvi, Adult No.1 with Vit K 10 1004 / 1004 ml Thiamine HCl 100 mg Magnesium Sulfate 2 gm In Lactated Ringers 1000ML 1,000 ml @ 125 mls/hr IV DAILY [facility] Rx #:[id number] Other: Weight 116 lb 4 oz Patient Weight 03/24/24 11:59 Weight 116 lb 4 oz I & O for Labs for Last 24 Hours: Intake & Output 03/21/24 03/22/24 03/23/24 03/24/24 11:59 11:59 11:59 11:59 Intake Total 1500 / 1500 1004 / 1004 Balance 1500 / 1500 1004 / 1004 Weight 95 lb 15.828 oz 116 lb 4 oz Head: Present atraumatic Eyes: Present as per HPI ENT: Present normal exam Neck: Present full ROM Respiratory: Present normal respiratory effort; Absent accessory muscle use Assessment and Plan *Assessment and plan (1) Hyperemesis gravidarum: Status: Acute Category: Medical Code(s): O21.0 - Mild hyperemesis gravidarum (2) Nausea and vomiting during prior to 22 weeks gestation: Status: Acute Category: Medical Code(s): O21.9 - Vomiting of , unspecified (3) Vomiting: Status: Acute Qualifiers: Vomiting type: bilious vomiting Nausea presence: with nausea Qualified Code(s): R11.14 - Bilious vomiting Category: Medical Code(s): R11.10 - Vomiting, unspecified (4) Cannabinoid hyperemesis syndrome: Status: Acute Category: Medical Code(s): R11.2 - Nausea with vomiting, unspecified; F12.90 - Cannabis use, unspecified, uncomplicated (5) Uterus didelphys: Status: Acute Category: Medical Code(s): Q51.28 - Other and unspecified doubling of uterus Plan She continues to have nausea and vomiting. She has really not been able to eat anything for the last couple of days. We have her on Compazine twice daily, Diclegis, scopolamine patches and regularly scheduled Zofran. Despite this she continues to have nausea and vomiting. She is unable to eat much. She has been receiving a daily rally pack. At this point in time we have mostly maximized our treatment options. We will watch her throughout the day today and then if she continues to feel the same way tomorrow we will consider transferring her to [facility] where she gets her care.
[2024-03-24 08:45] VITALS: BP 120/79; PULSE 63; RESP 16; TEMP 36.4; O2SAT 100
[2024-03-24] MEDS: DOXYLAMINE 10MG/PYRIDOXINE 10MG TABLET 1 TAB PO (09:02)
[2024-03-24 09:15] LABS: Basophils % 0.3 % (0.1-2.0); Eosinophils # 0.1 K/mm3 (0.0-0.4); Eosinophils % 0.7 % (0.1-12.0); Hemoglobin 14.5 g/dL (12.2-16.2); Lymphocytes # 1.4 K/mm3 (0.7-4.5); Lymphocytes % 20.1 % (10-50); Mean Corpuscular Hemoglobin 30.9 pg (27.0-31.2); Mean Corpuscular Volume 93.6 fl (81-99); Mean Platelet Volume 7.3 fl (7.4-10.4); Monocytes # 0.2 K/mm3 (0.1-1.0); Monocytes % 3.4 % (1.7-9.3); Neutrophils # 5.3 K/mm3 (1.8-7.8); Neutrophils % 75.5 % (37.0-80.0); Platelet Count 286 K/mm3 (142-424); Red Blood Count 4.69 M/mm3 (4.20-5.40); Red Cell Distribution Width 14.1 % (11.5-17.5)
[2024-03-24 09:31] LABS: Chloride 104 mmol/L (98-107); Potassium 3.1 mmoL/L (3.5-5.1); Sodium 138 mmol/L (136-145)
[2024-03-24 09:34] LABS: Alanine Aminotransferase 141 U/L (12-78); Albumin Level 3.9 g/dl (3.5-5.0); Albumin/Globulin Ratio 1.2 (1.1-1.8); Alkaline Phosphatase 71 U/L (38-126); Anion Gap 13.1 mEq/L (5-15); Aspartate Amino Transferase 92 U/L (14-36); Blood Urea Nitrogen 2 mg/dl (7-17); Calcium 9.2 mg/dl (8.4-10.2); Carbon Dioxide 24 mmol/L (22.0-30.0); Creatinine Clearance Estimated 148 mL/min (50-200); Estimated Glomerular Filt Rate 156 ml/min (>60); GFR (African American) 188 ML/MIN (>60); Globulin 3.3 g/dL (1.3-3.2); Glucose 104 mg/dl (74-100); Total Protein,Serum 7.2 g/dl (6.3-8.2)
[2024-03-24] MEDS: MVI, ADULT NO.1 WITH VIT K 10 ML, THIAMINE HCL 100 MG, MAGNESIUM SULFATE 2 GM in LACTAT... 125 ML IV (09:50)
[2024-03-24] MEDS: METOCLOPRAMIDE 5MG TABLET 5 MG PO (12:46)
[2024-03-24] MEDS: FAMOTIDINE 20MG/2ML VIAL 20 MG IV (12:47)
[2024-03-24] MEDS: SODIUM CHLORIDE 0.9% 10ML VIAL 10 ML IV (12:47)
[2024-03-24] MEDS: ACETAMINOPHEN 325MG TAB 650 MG PO (12:52)
--- NOTE | 2024-03-24 13:50 | P.DS_ITS ---
General Admission date:: 03/21/24 Discharge date: 03/24/24 HPI HPI HPI: Patient is a 23-year-old female G1, P0 EGA 15 weeks who presents emergency department for evaluation of vomiting. 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 Patient has had vomiting since 7 PM today that is worse than normal. She has had vomiting throughout her and has been intermittently responsive to metoclopramide, today it is refractory to Zofran. Patient has generalized abdominal pain, has had previous cholecystectomy. Patient has history of uterine dialysis, previous cannabinoid hyperemesis not currently smoking marijuana. She has had a 20 pound weight loss throughout the course. 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 Per chart review patient was admitted on 03/05 with similar symptoms and was subsequently transitioned to oral antiemetics and discharged home. Hospital Course Hospital Course Hospital Course: She was admitted and started on IV Zofran and Phenergan. She was subsequently changed to Compazine rectally. She has received IV vitamin pack daily as well. Despite this she continued to have nausea and vomiting. She also complains of epigastric pain. She has had a previous cholecystectomy. We then added a scopolamine patch to her regimen and this seemed to help a little bit. She was able to tolerate some fluids as well as Jell-O. However intermittently she was having epigastric pain severe enough to require narcotic analgesia. She was given Stadol 1 mg for this. Today we have added Reglan to her regimen and stop the scopolamine. I have also added Pepcid 20 mg daily as well. Despite this she continues to have nausea and vomiting. She continues to have intermittent epigastric pain. She had a bowel movement earlier on today and shortly thereafter began having severe epigastric pain again. I suspect she may benefit from TPN. She has lost 2 pounds over the weekend. Despite all the interventions she continues to feel unwell and have nausea and vomiting. I have spoke with Dr. Bundy in high risk at [facility] where the patient is currently being followed for her care. Her abstract writer is Dr. Narciso Neal and Dr. Bundy said he would speak to Dr. Neal and then admit Audra to the hospital at [facility]. I suspect she will need a GI consult to see if they can help with her nausea vomiting and epigastric pain. We will arrange an ambulance for her to transfer to [facility]. Exam Data for Last 24 hours Vital signs and Labs for Last 24 Hours: Temp Pulse Resp BP Pulse Ox O2 Del Method 97.6 F 63 16 120/79 100 Room Air 03/24/24 08:45 03/24/24 08:45 03/24/24 08:45 03/24/24 08:45 03/24/24 08:45 03/24/24 08:45 Laboratory Results - last 24 hr 03/24/24 09:05: WBC 7.0, RBC 4.69, Hgb 14.5, Hct 44.0, MCV 93.6, MCH 30.9, MCHC 33.0, RDW 14.1, Plt Count 286, MPV 7.3 L, Neut % (Auto) 75.5, Lymph % (Auto) 20.1, [place] % (Auto) 3.4, Eos % (Auto) 0.7, Baso % (Auto) 0.3, Neut # (Auto) 5.3, Lymph # (Auto) 1.4, [place] # (Auto) 0.2, Eos # (Auto) 0.1, Baso # (Auto) 0.0, Sodium 138, Potassium 3.1 L, Chloride 104, Carbon Dioxide 24, Anion Gap 13.1, BUN 2 L, Creatinine 0.50 L, Estimated Creat Clear 148, Estimated GFR 156, Est GFR ( Amer) 188, Glucose 104 H, Calcium 9.2, Total Bilirubin 1.0, AST 92 H, ALT 141 H, Alkaline Phosphatase 71, Total Protein 7.2, Albumin 3.9, Globulin 3.3 H, Albumin/Globulin Ratio 1.2 I & O for Last 24 hours: Intake & Output 03/22/24 03/23/24 03/24/24 03/25/24 11:59 11:59 11:59 11:59 Intake Total 1500 / 1500 1004 / 1004 Balance 1500 / 1500 1004 / 1004 Weight 116 lb 4 oz Constitutional Constitutional: mild distress *Routine HEENT Exam Head: Present normocephalic ENT: Present mucous membranes moist *Routine Neck Exam Neck: Present full ROM *Routine Respiratory Exam Respiratory: Present normal respiratory effort; Absent accessory muscle use Results Data Completed and Pending Labs on day of discharge: Labs from last 24 hours 03/24/24 09:05 WBC 7.0 RBC 4.69 Hgb 14.5 Hct 44.0 MCV 93.6 MCH 30.9 MCHC 33.0 RDW 14.1 Plt Count 286 MPV 7.3 L Neut % (Auto) 75.5 Lymph % (Auto) 20.1 [place] % (Auto) 3.4 Eos % (Auto) 0.7 Baso % (Auto) 0.3 Neut # (Auto) 5.3 Lymph # (Auto) 1.4 [place] # (Auto) 0.2 Eos # (Auto) 0.1 Baso # (Auto) 0.0 Sodium 138 Potassium 3.1 L Chloride 104 Carbon Dioxide 24 Anion Gap 13.1 BUN 2 L Creatinine 0.50 L Estimated Creat Clear 148 Estimated GFR 156 Est GFR ( Amer) 188 Glucose 104 H Calcium 9.2 Total Bilirubin 1.0 AST 92 H ALT 141 H Alkaline Phosphatase 71 Total Protein 7.2 Albumin 3.9 Globulin 3.3 H Albumin/Globulin Ratio 1.2 DS: Diagnosis Discharge Diagnosis (1) Hyperemesis gravidarum: Status: Acute Code(s): O21.0 - Mild hyperemesis gravidarum (2) Nausea and vomiting during prior to 22 weeks gestation: Status: Acute Code(s): O21.9 - Vomiting of , unspecified (3) Vomiting: Status: Acute Code(s): R11.10 - Vomiting, unspecified Qualifiers: Vomiting type: bilious vomiting Nausea presence: with nausea Qualified Code(s): R11.14 - Bilious vomiting (4) Cannabinoid hyperemesis syndrome: Status: Acute Code(s): R11.2 - Nausea with vomiting, unspecified; F12.90 - Cannabis use, unspecified, uncomplicated (5) Uterus didelphys: Status: Acute Code(s): Q51.28 - Other and unspecified doubling of uterus Meds Home Medications and Allergies Home Medications Medication Instructions Recorded Confirmed Type doxylamine 20 mg-pyridoxine 20 mg 1 tab PO Q12H 03/08/24 03/21/24 History tablet,immediate and delayed release (Bonjesta) famotidine 20 mg tablet 20 mg PO BID 03/08/24 03/21/24 History potassium chloride 10 mEq 10 meq PO BID 03/08/24 03/21/24 History tablet,extended release metoclopramide HCl 10 mg tablet 10 mg PO Q6HP PRN Nausea #60 tabs 03/09/24 03/21/24 Rx ondansetron 4 mg disintegrating 4 mg PO Q8HP PRN nausea and 03/21/24 03/21/24 History tablet vomiting promethazine 25 mg tablet 25 mg PO TID PRN nausea and 03/21/24 Rx vomiting #20 tabs New Prescriptions to Start Prescriptions: promethazine Emmanuel Ritter Allergies Allergy/AdvReac Type Severity Reaction Status Date / Time No Known Allergies Allergy Verified 03/08/24 10:38 Discharge Plan Disposition Patient Disposition: Xfer Short-Term Hosp Discharge Order Discharge Orders: Discharge Order (Routine); Ordered 03/24/24 Ordered By: Darrick Howe Follow up Plan Prescriptions/Medication Reconciliation: New promethazine 25 mg tablet 25 mg PO TID PRN (Reason: nausea and vomiting) Qty: 20 0RF Rx Instructions: Do not combine with metoclopramide. Continued famotidine 20 mg tablet 20 mg PO BID Patient Comments: TAKE 1 TABLET BY MOUTH TWICE DAILY potassium chloride 10 mEq tablet extended release 10 meq PO BID [place] 20-20 mg tablet,IR,delayed rel,biphasic 1 tab PO Q12H metoclopramide HCl 10 mg tablet 10 mg PO Q6HP PRN (Reason: Nausea) Qty: 60 1RF ondansetron 4 mg tablet,disintegrating 4 mg PO Q8HP PRN (Reason: nausea and vomiting) Problem Reconciliation Problems Reviewed?: Yes Patient Discharge Instructions ACTIVITY: Limited activity DIET: continue same diet Stand Alone Forms: Transfer Record Providers Primary Care Provider: Anthony Meng Admit Provider: Darrick Howe Attending Provider: Darrick Howe
[2024-03-24] MEDS: MORPHINE 2MG/ML SYRINGE 2 MG IV (14:21)
== END 2024-03-24 15:40 | disposition short-term general hospital (02) | DRG 833 ==
LOC: ER 05:44 → OB 03-22 02:49
PROVIDERS: Admitting Provider Nurse Practitioner Obstetrics & Gynecology; Emergency Provider Emergency Medicine; PCP Family Medicine; Visit Provider Nurse Practitioner Obstetrics & Gynecology
DX: O21.0 Mild hyperemesis gravidarum (principal); Z3A.22 22 weeks gestation of pregnancy; R11.2 Nausea with vomiting, unspecified; F12.90 Cannabis use, unspecified, uncomplicated
CPT/HCPCS: 80053; 80307; 81001; 83690; 85007; 85025; 99285; J0131; J2405; J7120